=== PATIENT | female | born 1945 | race Caucasian/White ===

== ENCOUNTER 2018-09-06 20:28 | Inpatient (IN) ==
[2018-09-06] MEDS ORDERED: NS 1,000 ML IV ONE (20:46)
[2018-09-06] MEDS ORDERED: ROCEPHIN 1 GM in NS 50 ML IV ONE (20:46)
--- NOTE | 2018-09-06 21:26 | Diag Imaging Result Doc PS360 ---
CT HEAD W/O CONTRAST - 09/06/2018 INDICATION: AMS, dilated pupil COMPARISON: 01/12/2018 FINDINGS: The ventricles and sulci are normal in size and contour. No intracranial mass or hemorrhage. The skull is intact. The sinuses mastoids and middle ears are clear. IMPRESSION: Negative exam. This exam was performed using automated exposure control, adjustment of mA or kV according to patient size, and/or use of iterative reconstruction technique Electronically signed by Klever Kumar 09/06/2018 9:24 PM
--- NOTE | 2018-09-06 21:56 | Diag Imaging Result Doc PS360 ---
CHEST-PORTABLE - 09/06/2018 INDICATION: sob, tachypnea COMPARISON: 01/12/2018 FINDINGS: The lungs are normally expanded and clear. Heart size and mediastinal contours are normal. No pneumothorax or pleural effusion. IMPRESSION: Negative exam. Electronically signed by Klever Kumar 09/06/2018 9:53 PM
[2018-09-06 22:00] LABS: BASO# 0.02 X1000 (0.0-0.2); BASO% 0.1 % (0.0-0.8); HEMATOCRIT 41.3 % (37.0-47.0); HEMOGLOBIN 12.7 g/dL (12.0-16.0); IMM GRAN# 0.07 X1000 (0.0-0.04); IMM GRAN% 0.4 % (0.0-0.5); LYMPH# 1.72 X1000 (1.2-3.4); MCH 23.6 PG (27-31); MCHC 30.8 g/dL (33-37); MCV 76.9 FL (81-99); MONO# 1.52 X1000 (0.11-0.59); MONO% 7.9 % (1.7-9.3); NEUT# 15.88 X1000 (1.4-6.5); NEUT% 82.6 % (42.2-75.2); PLT 568 X1000 (130-400); RBC 5.37 XMIL (4.2-5.4); WBC 19.21 X1000 (4.8-10.8)
[2018-09-06 22:13] LABS: ALB/GLOB RATIO 1.1; ALBUMIN 3.9 g/dL (3.5-5.0); CALCIUM 8.6 mg/dL (8.8-10.2); CREATININE 1.8 mg/dL (0.5-0.9); POTASSIUM 3.9 mmol/L (3.5-5.1); TOTAL BILIRUBIN 0.46 mg/dL (0.20-1.00); TOTAL PROTEIN 7.3 g/dL (6.3-8.3)
[2018-09-06 22:19] LABS: ALLEN TEST YES; BE -2.1 mmoll (-3.0-3.0); BLOOD TYPE ARTERIAL; HCO3-(ACT) 23.3 mmoll (20.0-26.0); METHB 0.9 % (0.0-1.5); O2HB 97.8 % (95.0-99.0); PCO2(98.6) 47 mmHg (35-45); PO2(98.6) 388 mmHg (60-100); SAMPLE BLOOD; SAO2 100.1 % (95.0-100.0); THB 11.6 g/dL (11.5-17.4); pH(98.6) 7.32 (7.35-7.45)
[2018-09-06 22:20] LABS: MODALITY NRB
[2018-09-06] MEDS ORDERED: VANCOMYCIN 1 GM/NS 1 GM/250 ML IVPB IV ONE (22:25)
[2018-09-07] MEDS ORDERED: NS 500 ML ONE ×2 (00:06→00:39)
[2018-09-07] MEDS ORDERED: CARDIZEM ONE (00:06)
[2018-09-07] MEDS ORDERED: NS 500 ML IV ONE (00:11)
[2018-09-07] MEDS ORDERED: CARDIZEM IV ONE (00:11)
[2018-09-07] MEDS ORDERED: ATIVAN IV ONE ×2 (00:11→09:30)
[2018-09-07] MEDS ORDERED: ATIVAN ONE ×2 (00:13→09:40)
[2018-09-07 00:15] LABS: UR AMPHETAMINES QUAL NONE DETECTED (NONE DETECT); UR BARBITUATES QUAL NONE DETECTED (NONE DETECT); UR BENZODIAZEPIN QUAL NONE DETECTED (NONE DETECT); UR CANNABINOIDS QUAL NONE DETECTED (NONE DETECT); UR COCAINE QUAL NONE DETECTED (NONE DETECT); UR METHADONE QUAL NONE DETECTED (NONE DETECT); UR OPIATES QUAL NONE DETECTED (NONE DETECT); UR OXYCODONE QUAL NONE DETECTED (NONE DETECT); UR PCP QUAL NONE DETECTED (NONE DETECT)
[2018-09-07 00:39] LABS: URINE SOURCE CATH
[2018-09-07] MEDS: CARDIZEM 125 MG in NS 100 ML IV SCH ×3 (00:47→15:05)
[2018-09-07 01:04] LABS: BILIRUBIN URINE SMALL (NEGATIVE); BLOOD URINE TRACE (NEGATIVE); COLOR YELLOW; GLUCOSE URINE NEGATIVE (NEGATIVE); KETONE URINE TRACE mg/dL (NEGATIVE); LEUKOCYTES URINE NEGATIVE (NEGATIVE); NITRITE URINE NEGATIVE (NEGATIVE); PROTEIN URINE 70 mg/dL (NEGATIVE); SP GRAVITY URINE 1.019; TURBIDITY URINE CLEAR (CLEAR); UR EPITHELIAL CELLS <10 /HPF (<10); URINE BACTERIA NEGATIVE /HPF; URINE RBC <10 /HPF (<10); URINE WBC <10 /HPF (<10); UROBILINOGEN URINE 2 mg/dL (NORMAL)
[2018-09-07] MEDS ORDERED: QUELICIN ONE ×2 (02:10→02:19)
[2018-09-07] MEDS ORDERED: AMIDATE ONE ×2 (02:10→02:19)
[2018-09-07 02:23] LABS: INR 1.19; PROTIME 16.1 Seconds (11.0-16.0); PTT 27.6 Seconds (22.3-41.8)
[2018-09-07 02:26] LABS: D-DIMER 1.06 ug/mLFEU (0.0-0.52)
[2018-09-07] MEDS: LEVOPHED 8 MG in D5 1/2 NS 250 ML IV SCH ×2 (02:35→15:04)
[2018-09-07] MEDS: DIPRIVAN 1% 1,000 MG/100 ML BOTTLE IV SCH ×5 (02:45→22:50)
[2018-09-07] MEDS ORDERED: NS NEB INH SCH (03:00)
[2018-09-07] MEDS ORDERED: QUELICIN IV ONE ×2 (03:21→03:22)
[2018-09-07] MEDS ORDERED: AMIDATE IV ONE ×2 (03:22→03:23)
[2018-09-07 03:35] LABS: BASO# 0.03 X1000 (0.0-0.2); BASO% 0.1 % (0.0-0.8); HEMATOCRIT 41.5 % (37.0-47.0); HEMOGLOBIN 12.4 g/dL (12.0-16.0); IMM GRAN# 0.12 X1000 (0.0-0.04); IMM GRAN% 0.5 % (0.0-0.5); LYMPH% 6.7 % (20.5-51.1); MCH 23.3 PG (27-31); MCHC 29.9 g/dL (33-37); MONO# 2.41 X1000 (0.11-0.59); MONO% 10.1 % (1.7-9.3); MPV 11.7 FL (7.4-10.4); NEUT# 19.74 X1000 (1.4-6.5); NEUT% 82.6 % (42.2-75.2); PLT 546 X1000 (130-400); RBC 5.32 XMIL (4.2-5.4); RDW 18.7 % (11.5-14.5)
[2018-09-07 03:58] LABS: CREATININE 1.2 mg/dL (0.5-0.9); MAGNESIUM 2.1 mg/dL (1.5-2.7); POTASSIUM 3.5 mmol/L (3.5-5.1)
[2018-09-07] MEDS: ATROVENT NEB INH SCH ×4 (04:00→22:22)
[2018-09-07] MEDS: XOPENEX NEB INH SCH ×4 (04:00→22:22)
[2018-09-07 04:04] LABS: ALLEN TEST YES; BE -3.5 mmoll (-3.0-3.0); BLOOD TYPE ARTERIAL; HCO3-(ACT) 22.2 mmoll (20.0-26.0); METHB 1.1 % (0.0-1.5); O2(CT) 16.4 mL/dL (15.0-23.0); O2HB 97.6 % (95.0-99.0); PCO2(98.6) 50 mmHg (35-45); PO2(98.6) 332 mmHg (60-100); SAMPLE BLOOD; SRATE 14 BPM; THB 11.3 g/dL (11.5-17.4); TVOL 500 mL; pH(98.6) 7.28 (7.35-7.45)
[2018-09-07 04:06] LABS: MODALITY VENTILATOR
[2018-09-07] MEDS: PROTONIX IV SCH ×2 (04:12→16:37)
[2018-09-07 06:06] LABS: ACETAMINOPHEN < 1.2 ug/mL (10-30); SALICYLATES < 3.00 mg/dL (3-10)
[2018-09-07] MEDS ORDERED: ZOFRAN IV PRN (06:50)
[2018-09-07] MEDS ORDERED: TYLENOL PR PRN (06:50)
--- NOTE | 2018-09-07 07:16 | EKG Report ---
Test Performed on : 09/07/2018 07:07:33 AM Test Reason : New Onset A-Fib Blood Pressure : / mmHG Vent. Rate : 097 BPM Atrial Rate : 097 BPM P-R Int : 114 ms QRS Dur : 074 ms QT Int : 396 ms P-R-T Axes : 070 063 255 degrees QTc Int : 502 ms Normal sinus rhythm. T wave abnormality, consider inferior ischemia T wave abnormality, consider anterolateral ischemia Prolonged QT Abnormal ECG When compared with ECG of 07-SEP-2018 00:00, (Unconfirmed) Sinus rhythm. has replaced Atrial fibrillation. Vent. rate has decreased BY [address] no longer depressed in Inferior leads ST no longer depressed in Anterolateral leads Confirmed by Juan RAMIREZ, Zaid ([id number]) on 09/07/2018 9:01:59 AM
--- NOTE | 2018-09-07 07:29 | Diag Imaging Result Doc PS360 ---
EXAM: CHEST-PORTABLE HISTORY: tube placement TECHNIQUE: Portable chest COMPARISON: 09/06/2018 at 9:36 PM FINDINGS: Interval placement of an endotracheal tube. This is in good position 4 cm above the nydia. Interval placement of a nasogastric tube which overlies the esophagus and stomach. The lungs are well expanded and clear. IMPRESSION: Endotracheal and nasogastric tubes in good position Electronically signed by Elfego Delcid 09/07/2018 7:27 AM
[2018-09-07] MEDS ORDERED: ELIQUIS SCH (09:00)
--- NOTE | 2018-09-07 09:14 | EKG Report ---
Test Performed on : 09/06/2018 8:37:20 PM Test Reason : ams Blood Pressure : / mmHG Vent. Rate : 108 BPM Atrial Rate : 108 BPM P-R Int : 184 ms QRS Dur : 162 ms QT Int : 436 ms P-R-T Axes : 019 063 251 degrees QTc Int : 584 ms Sinus tachycardia. with frequent premature ventricular complexes. Left bundle branch block Abnormal ECG When compared with ECG of 12-JAN-2018 21:13, premature ventricular complexes. are now present Left bundle branch block is now present Unconfirmed Result
[2018-09-07] MEDS: ELIQUIS SCH ×2 (09:36→20:19)
--- NOTE | 2018-09-07 09:46 | EKG Report ---
Test Performed on : 09/07/2018 00:00:25 AM Test Reason : ED. NO EKG ORDER FOR MUSE Blood Pressure : / mmHG Vent. Rate : 214 BPM Atrial Rate : 172 BPM P-R Int : 000 ms QRS Dur : 064 ms QT Int : 196 ms P-R-T Axes : 000 051 251 degrees QTc Int : 370 ms Atrial fibrillation. with rapid ventricular response. Marked ST abnormality, possible inferior subendocardial injury Abnormal ECG When compared with ECG of 06-SEP-2018 20:37, (Unconfirmed) Atrial fibrillation. has replaced Sinus rhythm. Vent. rate has increased BY 106 BPM Left bundle branch block is no longer present Unconfirmed Result
[2018-09-07 09:57] LABS: ALLEN TEST NO; BE 0.5 mmoll (-3.0-3.0); BLOOD TYPE ARTERIAL; METHB 1.3 % (0.0-1.5); O2(CT) 12.9 mL/dL (15.0-23.0); PCO2(98.6) 41 mmHg (35-45); SAMPLE BLOOD; SAO2 84.1 % (95.0-100.0); THB 11.2 g/dL (11.5-17.4)
[2018-09-07 10:01] LABS: MODALITY VENTILATOR; PO2(98.6) 47 mmHg (60-100)
[2018-09-07 10:02] LABS: O2HB 81.7 % (95.0-99.0)
[2018-09-07] MEDS ORDERED: VANCOMYCIN IV PER PHARMACY MISC SCH (12:30)
--- NOTE | 2018-09-07 12:44 | PROVIDER DOCUMENTATION ---
This chart was entered by Lizy Gregorio Scribe, acting as scribe for Stephon Wisdom MD. HPI-General Adult <Rock CollierRaj - Last Filed: 09/07/18 02:20> - General Source: family, EMS - History of Present Illness -Gen Adult Nature of Presenting Problems: Pt is 72/F presenting to ED via EMS, per family pt was confused for the last few days, yesterday on recliner, niece went next day and found her still sitting on recliner, weak, minimally responsive "I think because she is out of xanax for 2 weeks". EMS was called. SVT on the route given adensoine 6 and 12 then cardioversion done in ambulance. PER EMS she converted from SVT to sinus rhythm. per family she is on 2 L oxygen at home and she still smoke cigarette. Location of Pain/Injury: reports: none Pain Radiation: reports: no radiation <Stephon Wisdom - Last Filed: 09/07/18 15:17> - General Chief Complaint: Altered Mental Status Stated Complaint: svt/ possible overdose Time Seen by Provider: 09/06/18 20:32 Allergies/Adverse Reactions: Patient Allergies Allergy/AdvReac Type Severity Reaction Status Date / Time No Known Allergies Allergy Verified 09/06/18 22:25 Home Medications: Home Medication List Medication Instructions Recorded Confirmed Last Taken Type Amlodipine [Norvasc] 5 mg PO BID 01/12/18 09/06/18 Unknown History Apixaban [Eliquis] 5 mg PO BID 01/12/18 09/06/18 Unknown History Escitalopram [Lexapro] 20 mg PO DAILY 01/12/18 09/06/18 Unknown History LOVAstatin [Mevacor] 20 mg PO DAILY 01/12/18 09/06/18 Unknown History Magnesium Oxide 400 mg PO BID 01/12/18 09/06/18 Unknown History Pantoprazole [Protonix] 40 mg PO DAILY@0700 01/12/18 09/06/18 Unknown History Potassium Chloride E.r. [Klor-Con] 10 meq PO DAILY 01/12/18 09/06/18 Unknown History Quetiapine [Seroquel] 50 mg PO QHS #60 tab 01/15/18 09/06/18 Unknown Rx Alprazolam 1 mg PO TID PRN 09/06/18 09/06/18 Unknown History Oxycodone HCl 30 mg PO 3-4XDAY PRN PRN 09/06/18 09/06/18 Unknown History Review of Systems - Adult - REVIEW OF SYSTEMS - ADULT ROS:: limited per condition Constitutional: reports: no symptoms reported <Stephon Wisdom - Last Filed: 09/07/18 15:17> Past History - Adult - PAST MEDICAL HISTORY-ADULT Review of Records: reports: Old Records Reviewed, Nursing Assessment Review Respiratory: reports: COPD Musculoskeletal: reports: chronic pain - PRIOR SURGERIES/PROCEDURES Surgical/Procedure History: reports: reviewed, not pertinent - IMMUNIZATION STATUS Childhood Immunizations: See Nurse Assessment Flu Vaccine: See Nurse Assessment - FAMILY HISTORY Family History: reviewed, not pertinent <Stephon Wisdom - Last Filed: 09/07/18 15:17> Physical Exam-General - PHYSICAL EXAM-ADULT Initial Vital Signs Reviewed: Yes - CONSTITUTIONAL General Appearance: severe distress - EYES Eyes: other (dialated and reactive) - HEAD, EARS, NOSE, MOUTH & THROAT HENMT: normocephalic/atraumatic, moist mucous membranes, normal ENT inspection - NECK Neck: non-tender, full range of motion, supple, normal inspection - RESPIRATORY Respiratory: respiratory distress, decreased breath sounds, accessory muscle use . negative: crackles, rales, wheezing - CARDIOVASCULAR Cardiovascular: normal peripheral pulses, no edema, tachycardia - GASTROINTESTINAL (ABDOMEN) Abdominal Exam: normal bowel sounds, non tender, soft - SKIN Integumentary: normal color, warm/dry - NEUROLOGIC Neurologic: other (Patient is confused which limit her neuro exam, able to move all extremities, DTR +3 B/L LE, increase tone B/L UE LE. [place] (+) B/L foot. GCS 11.) - PSYCHIATRIC Psych/Mental Status: disoriented x 3 <Stephon Wisdom - Last Filed: 09/07/18 15:17> Progress - PLAN OF CARE/RESULTS Progress/Plan/Lab Results: Vital Signs - 8 hr 09/06/18 20:33 09/06/18 20:37 09/06/18 20:47 Pulse Rate 113 H 108 H 111 H Respiratory Rate 22 22 20 Blood Pressure 98/71 111/82 95/67 O2 Sat by Pulse Oximetry 97 100 100 09/06/18 20:52 09/06/18 20:55 09/06/18 20:57 Pulse Rate 118 H 108 H 110 H Respiratory Rate 28 H 22 24 Blood Pressure 80/73 146/75 165/80 O2 Sat by Pulse Oximetry 97 100 100 09/06/18 21:19 09/06/18 21:22 04 21:26 Pulse Rate 107 H 105 H 105 H Respiratory Rate 24 22 22 Blood Pressure 155/72 138/98 140/86 O2 Sat by Pulse Oximetry 99 100 100 09/06/18 21:31 09/06/18 21:37 09/06/18 21:42 Pulse Rate 105 H 106 H 103 H Respiratory Rate 24 24 24 Blood Pressure 162/76 168/81 157/71 O2 Sat by Pulse Oximetry 100 96 97 09/06/18 21:47 09/06/18 21:53 09/06/18 21:57 Pulse Rate 102 H 103 H 101 H Respiratory Rate 22 24 24 Blood Pressure 168/80 173/85 156/79 O2 Sat by Pulse Oximetry 100 100 100 09/06/18 22:01 09/06/18 22:07 09/06/18 22:12 Pulse Rate 100 H 100 H 103 H Respiratory Rate 22 36 H 36 H Blood Pressure 159/79 157/71 160/78 O2 Sat by Pulse Oximetry 100 100 100 09/06/18 22:16 09/06/18 22:21 09/06/18 22:26 Pulse Rate 112 H 103 H 104 H Respiratory Rate 28 H 35 H 37 H Blood Pressure 165/97 144/87 169/81 O2 Sat by Pulse Oximetry 100 100 100 09/06/18 22:31 09/06/18 22:36 09/06/18 22:41 Pulse Rate 102 H 102 H 100 H Respiratory Rate 36 H 42 H 35 H Blood Pressure 158/85 145/81 164/85 O2 Sat by Pulse Oximetry 100 100 100 09/06/18 22:46 09/06/18 22:51 09/06/18 23:00 Pulse Rate 99 H 102 H 101 H Respiratory Rate 34 H 31 H 37 H Blood Pressure 157/82 165/86 O2 Sat by Pulse Oximetry 100 100 100 09/06/18 23:01 09/06/18 23:06 09/06/18 23:11 Pulse Rate 101 H 98 H 104 H Respiratory Rate 41 H 35 H 23 Blood Pressure 166/89 170/86 152/86 O2 Sat by Pulse Oximetry 100 100 99 09/06/18 23:16 09/06/18 23:20 09/06/18 23:22 Pulse Rate 106 H 108 H Respiratory Rate 33 H 35 H Blood Pressure 179/94 189/82 O2 Sat by Pulse Oximetry 99 100 100 09/06/18 23:27 09/06/18 23:31 09/06/18 23:37 Pulse Rate 106 H 112 H 113 H Respiratory Rate 36 H 33 H 35 H Blood Pressure 179/87 178/94 170/76 O2 Sat by Pulse Oximetry 100 100 98 09/06/18 23:41 09/06/18 23:46 09/06/18 23:51 Pulse Rate 109 H 109 H 114 H Respiratory Rate 33 H 34 H 34 H Blood Pressure 164/78 176/84 172/92 O2 Sat by Pulse Oximetry 98 99 99 09/06/18 23:57 09/07/18 00:00 09/07/18 00:01 Pulse Rate 225 H 108 H 221 H Respiratory Rate 34 H 29 H 43 H Blood Pressure 168/110 113/92 O2 Sat by Pulse Oximetry 96 98 97 09/07/18 00:05 09/07/18 00:07 09/07/18 00:12 Pulse Rate 211 H 198 H 191 H Respiratory Rate 48 H 33 H 43 H Blood Pressure 162/100 155/105 167/101 O2 Sat by Pulse Oximetry 97 96 95 09/07/18 00:17 09/07/18 00:21 09/07/18 00:26 Pulse Rate 190 H 187 H 185 H Respiratory Rate 33 H 30 H 30 H Blood Pressure 126/73 121/83 147/116 O2 Sat by Pulse Oximetry 96 95 95 Laboratory Results - last 24 hr 09/06/18 09/06/18 09/06/18 20:40 20:40 21:20 WBC 19.21 H RBC 5.37 Hgb 12.7 Hct 41.3 MCV 76.9 L MCH 23.6 L MCHC 30.8 L RDW Std Deviation 19.0 H Plt Count 568 H MPV 12.0 H Immature Gran % (Auto) 0.4 Neut % (Auto) 82.6 H Lymph % (Auto) 9.0 L [place] % (Auto) 7.9 Eos % (Auto) 0.0 Baso % (Auto) 0.1 Immature Gran # (Auto) 0.07 H Neut # (Auto) 15.88 H Lymph # (Auto) 1.72 [place] # (Auto) 1.52 H Eos # (Auto) 0.00 Baso # (Auto) 0.02 Specimen Type Sample Site pH pCO2 pO2 HCO3 Base Excess Oxyhemoglobin ABG O2 Sat (Calculated) ABG O2 Saturation ABG Carboxyhemoglobin ABG Methemoglobin Mark Test A-a O2 Difference Total Hemoglobin Lactate Liter Flow Blood Gas Modality FiO2 % Sodium Potassium Chloride Carbon Dioxide Anion Gap BUN Creatinine Estimated GFR/1.73 m2 BUN/Creatinine Ratio Glucose POC Glucose Calculated Osmolality Calcium Total Bilirubin AST ALT Alkaline Phosphatase Troponin T Total Protein Albumin Globulin Albumin/Globulin Ratio Plasma Lactate Urine Source CATH Urine Color YELLOW Urine Turbidity CLEAR Urine pH 6.0 Ur Specific [place] 1.019 Urine Protein 70 A Ur Glucose (Stick) NEGATIVE Ur Ketones (Stick) TRACE A Urine Blood TRACE A Urine Nitrite NEGATIVE Urine Bilirubin SMALL A Urobilinogen Dipstick 2 A Urine Leukocytes NEGATIVE Urine WBC (Auto) <10 Urine RBC (Auto) <10 U Epithel Cells (Auto) <10 Urine Bacteria (Auto) NEGATIVE Urine Opiates Screen NONE DETECTED Ur Oxycodone Screen NONE DETECTED Ur Methadone, Qual NONE DETECTED Ur Barbiturates Screen NONE DETECTED Ur Phencyclidine Scrn NONE DETECTED Ur Amphetamines Screen NONE DETECTED U Benzodiazepines Scrn NONE DETECTED Urine Cocaine Screen NONE DETECTED U Cannabinoids Screen NONE DETECTED 09/06/18 09/06/18 09/06/18 21:20 21:20 21:38 WBC RBC Hgb Hct MCV MCH MCHC RDW Std Deviation Plt Count MPV Immature Gran % (Auto) Neut % (Auto) Lymph % (Auto) [place] % (Auto) Eos % (Auto) Baso % (Auto) Immature Gran # (Auto) Neut # (Auto) Lymph # (Auto) [place] # (Auto) Eos # (Auto) Baso # (Auto) Specimen Type ARTERIAL Sample Site R RADIAL pH 7.32 L pCO2 47 H pO2 388 H HCO3 23.3 Base Excess -2.1 Oxyhemoglobin 97.8 ABG O2 Sat (Calculated) 17.0 ABG O2 Saturation 100.1 H ABG Carboxyhemoglobin 1.40 ABG Methemoglobin 0.9 Mark Test YES A-a O2 Difference 266.0 Total Hemoglobin 11.6 Lactate 1.40 Liter Flow 15.0 Blood Gas Modality NRB FiO2 % 100.0 Sodium 149 H Potassium 3.9 Chloride 110 H Carbon Dioxide 26 Anion Gap 13 BUN 66 H Creatinine 1.8 H Estimated GFR/1.73 m2 28 BUN/Creatinine Ratio 37 Glucose 169 H POC Glucose Calculated Osmolality 319 Calcium 8.6 L Total Bilirubin 0.46 AST 20 ALT 11 Alkaline Phosphatase 117 H Troponin T 0.081 Total Protein 7.3 Albumin 3.9 Globulin 3.4 Albumin/Globulin Ratio 1.1 Plasma Lactate Urine Source Urine Color Urine Turbidity Urine pH Ur Specific [place] Urine Protein Ur Glucose (Stick) Ur Ketones (Stick) Urine Blood Urine Nitrite Urine Bilirubin Urobilinogen Dipstick Urine Leukocytes Urine WBC (Auto) Urine RBC (Auto) U Epithel Cells (Auto) Urine Bacteria (Auto) Urine Opiates Screen Ur Oxycodone Screen Ur Methadone, Qual Ur Barbiturates Screen Ur Phencyclidine Scrn Ur Amphetamines Screen U Benzodiazepines Scrn Urine Cocaine Screen U Cannabinoids Screen 09/06/18 09/06/18 21:57 23:19 WBC RBC Hgb Hct MCV MCH MCHC RDW Std Deviation Plt Count MPV Immature Gran % (Auto) Neut % (Auto) Lymph % (Auto) [place] % (Auto) Eos % (Auto) Baso % (Auto) Immature Gran # (Auto) Neut # (Auto) Lymph # (Auto) [place] # (Auto) Eos # (Auto) Baso # (Auto) Specimen Type Sample Site pH pCO2 pO2 HCO3 Base Excess Oxyhemoglobin ABG O2 Sat (Calculated) ABG O2 Saturation ABG Carboxyhemoglobin ABG Methemoglobin Mark Test A-a O2 Difference Total Hemoglobin Lactate Liter Flow Blood Gas Modality FiO2 % Sodium Potassium Chloride Carbon Dioxide Anion Gap BUN Creatinine Estimated GFR/1.73 m2 BUN/Creatinine Ratio Glucose POC Glucose 150 H Calculated Osmolality Calcium Total Bilirubin AST ALT Alkaline Phosphatase Troponin T Total Protein Albumin Globulin Albumin/Globulin Ratio Plasma Lactate 1.6 Urine Source Urine Color Urine Turbidity Urine pH Ur Specific [place] Urine Protein Ur Glucose (Stick) Ur Ketones (Stick) Urine Blood Urine Nitrite Urine Bilirubin Urobilinogen Dipstick Urine Leukocytes Urine WBC (Auto) Urine RBC (Auto) U Epithel Cells (Auto) Urine Bacteria (Auto) Urine Opiates Screen Ur Oxycodone Screen Ur Methadone, Qual Ur Barbiturates Screen Ur Phencyclidine Scrn Ur Amphetamines Screen U Benzodiazepines Scrn Urine Cocaine Screen U Cannabinoids Screen Orders Category Date Time Status CT HEAD W/O CONTRAST [CT] Stat Exams 09/06/18 20:46 Completed CTA [CT ANGIOGRM PULMONARY ARTERIES] [CT] Stat Exams 09/06/18 21:57 Ordered cxr [CHEST-PORTABLE] [RAD] Stat Exams 09/06/18 21:30 Completed ABG [RESP] Routine Lab 09/06/18 21:38 Completed BLOOD CULTURE [BLDCUL] Stat Lab 09/06/18 21:20 Results BLOOD CULTURE [BLDCUL] Stat Lab 09/06/18 22:24 Received CBC WITH ELECTRONIC DIFF [HEME] Stat Lab 09/06/18 21:20 Completed CMP [COMPREHENSIVE METABOLIC PANEL] [CHEM] Stat Lab 09/06/18 21:20 Completed LACTATE, PLASMA [CHEM] Stat Lab 09/06/18 23:19 Completed TROPONIN T Stat Lab 09/06/18 21:20 Completed UA NIMS W/REFLEX CULT [URINALYSIS] Stat Lab 09/07/18 00:30 Completed URINE DRUG SCREEN Stat Lab 09/06/18 20:40 Completed 0.9% Sodium Chloride Inj [Ns] 1,000 ml Med 09/06/18 20:46 Discontinued IV 999 mls/hr 0.9% Sodium Chloride Inj [Ns] 100 ml Med 09/07/18 00:15 Active Diltiazem [Cardizem] 125 mg IV As Directed mls/hr 0.9% Sodium Chloride Inj [Ns] 500 ml Med 09/07/18 00:06 Discontinued .ROUTE As directed 0.9% Sodium Chloride Inj [Ns] 500 ml Med 09/07/18 00:39 Discontinued .ROUTE As directed 0.9% Sodium Chloride Inj [Ns] 500 ml Med 09/07/18 00:11 Discontinued IV 999 mls/hr CefTRIAXONE [Rocephin] 1 gm Med 09/06/18 20:46 Discontinued 0.9% Sodium Chloride Inj [Ns] 50 ml IV NOW Dextrose 5%-0.45% NaCl Inj [D5 1/2 Ns] 250 ml Med 09/07/18 00:45 Active Norepinephrine [Levophed] 8 mg IV As Directed mls/hr Diltiazem [Cardizem] Med 09/07/18 00:11 Discontinued 10 mg IV NOW ONE Diltiazem [Cardizem] Med 09/07/18 00:06 Discontinued 25 mg .ROUTE .STK-MED ONE Lorazepam [Ativan] Med 09/07/18 00:11 Discontinued 0.5 mg IV NOW ONE Lorazepam [Ativan] Med 09/07/18 00:13 Discontinued 2 mg .ROUTE .STK-MED ONE Vancomycin 1 gm/Ns Med 09/06/18 22:25 Discontinued 1 gm in 250 ml IV NOW BIPAP Stat Oth 09/06/18 22:59 Active EKG [EKG] Stat Ther 09/06/18 20:47 Ordered Transfer/Admit Order [TRANSFER] Routine Transfer 09/07/18 01:30 Ordered Result Diagrams: 09/06/18 21:20 09/06/18 21:20 <Rock Collier - Last Filed: 09/07/18 02:20> - PLAN OF CARE/RESULTS Progress/Plan/Lab Results: Vital Signs - 8 hr 09/06/18 20:33 09/06/18 20:37 09/06/18 20:47 Pulse Rate 113 H 108 H 111 H Respiratory Rate 22 22 20 Blood Pressure 98/71 111/82 95/67 O2 Sat by Pulse Oximetry 97 100 100 09/06/18 20:52 09/06/18 20:55 09/06/18 20:57 Pulse Rate 118 H 108 H 110 H Respiratory Rate 28 H 22 24 Blood Pressure 80/73 146/75 165/80 O2 Sat by Pulse Oximetry 97 100 100 09/06/18 21:19 09/06/18 21:22 09/06/18 21:26 Pulse Rate 107 H 105 H 105 H Respiratory Rate 24 22 22 Blood Pressure 155/72 138/98 140/86 O2 Sat by Pulse Oximetry 99 100 100 09/06/18 21:31 09/06/18 21:37 09/06/18 21:42 Pulse Rate 105 H 106 H 103 H Respiratory Rate 24 24 24 Blood Pressure 162/76 168/81 157/71 O2 Sat by Pulse Oximetry 100 96 97 09/06/18 21:47 09/06/18 21:53 09/06/18 21:57 Pulse Rate 102 H 103 H 101 H Respiratory Rate 22 24 24 Blood Pressure 168/80 173/85 156/79 O2 Sat by Pulse Oximetry 100 100 100 09/06/18 22:01 Pulse Rate 100 H Respiratory Rate 22 Blood Pressure 159/79 O2 Sat by Pulse Oximetry 100 Laboratory Results - last 24 hr 09/06/18 09/06/18 09/06/18 21:20 21:20 21:20 WBC 19.21 H RBC 5.37 Hgb 12.7 Hct 41.3 MCV 76.9 L MCH 23.6 L MCHC 30.8 L RDW Std Deviation 19.0 H Plt Count 568 H MPV 12.0 H Immature Gran % (Auto) 0.4 Neut % (Auto) 82.6 H Lymph % (Auto) 9.0 L [place] % (Auto) 7.9 Eos % (Auto) 0.0 Baso % (Auto) 0.1 Immature Gran # (Auto) 0.07 H Neut # (Auto) 15.88 H Lymph # (Auto) 1.72 [place] # (Auto) 1.52 H Eos # (Auto) 0.00 Baso # (Auto) 0.02 Specimen Type Sample Site pH pCO2 pO2 HCO3 Base Excess Oxyhemoglobin ABG O2 Sat (Calculated) ABG O2 Saturation ABG Carboxyhemoglobin ABG Methemoglobin Mark Test A-a O2 Difference Total Hemoglobin Lactate Liter Flow Blood Gas Modality FiO2 % Sodium 149 H Potassium 3.9 Chloride 110 H Carbon Dioxide 26 Anion Gap 13 BUN 66 H Creatinine 1.8 H Estimated GFR/1.73 m2 28 BUN/Creatinine Ratio 37 Glucose 169 H POC Glucose Calculated Osmolality 319 Calcium 8.6 L Total Bilirubin 0.46 AST 20 ALT 11 Alkaline Phosphatase 117 H Troponin T 0.081 Total Protein 7.3 Albumin 3.9 Globulin 3.4 Albumin/Globulin Ratio 1.1 09/06/18 09/06/18 21:38 21:57 WBC RBC Hgb Hct MCV MCH MCHC RDW Std Deviation Plt Count MPV Immature Gran % (Auto) Neut % (Auto) Lymph % (Auto) [place] % (Auto) Eos % (Auto) Baso % (Auto) Immature Gran # (Auto) Neut # (Auto) Lymph # (Auto) [place] # (Auto) Eos # (Auto) Baso # (Auto) Specimen Type ARTERIAL Sample Site R RADIAL pH 7.32 L pCO2 47 H pO2 388 H HCO3 23.3 Base Excess -2.1 Oxyhemoglobin 97.8 ABG O2 Sat (Calculated) 17.0 ABG O2 Saturation 100.1 H ABG Carboxyhemoglobin 1.40 ABG Methemoglobin 0.9 Mark Test YES A-a O2 Difference 266.0 Total Hemoglobin 11.6 Lactate 1.40 Liter Flow 15.0 Blood Gas Modality NRB FiO2 % 100.0 Sodium Potassium Chloride Carbon Dioxide Anion Gap BUN Creatinine Estimated GFR/1.73 m2 BUN/Creatinine Ratio Glucose POC Glucose 150 H Calculated Osmolality Calcium Total Bilirubin AST ALT Alkaline Phosphatase Troponin T Total Protein Albumin Globulin Albumin/Globulin Ratio Orders Category Date Time Status CT HEAD W/O CONTRAST [CT] Stat Exams 09/06/18 20:46 Completed CTA [CT ANGIOGRM PULMONARY ARTERIES] [CT] Stat Exams 09/06/18 21:57 Ordered cxr [CHEST-PORTABLE] [RAD] Stat Exams 09/06/18 21:30 Completed ABG [RESP] Routine Lab 09/06/18 21:38 Completed BLOOD CULTURE [BLDCUL] Stat Lab 09/06/18 21:20 Results BLOOD CULTURE [BLDCUL] Stat Lab 09/06/18 22:24 Ordered CBC WITH ELECTRONIC DIFF [HEME] Stat Lab 09/06/18 21:20 Completed CMP [COMPREHENSIVE METABOLIC PANEL] [CHEM] Stat Lab 09/06/18 21:20 Completed LACTATE, PLASMA [CHEM] Stat Lab 09/06/18 22:23 Ordered TROPONIN T Stat Lab 09/06/18 21:20 Completed 0.9% Sodium Chloride Inj [Ns] 1,000 ml Med 09/06/18 20:46 Discontinued IV 999 mls/hr CefTRIAXONE [Rocephin] 1 gm Med 09/06/18 20:46 Discontinued 0.9% Sodium Chloride Inj [Ns] 50 ml IV NOW Vancomycin 1 gm/Ns Med 09/06/18 22:25 Active 1 gm in 250 ml IV NOW EKG [EKG] Stat Ther 09/06/18 20:47 Ordered Patient care, assessment and plan discussed with the attending physician Dr. Collier and he agree with the plan as documented. respiratory distress, start Bi pap and Monitor. Patient with worsening respiratory failure. AMS likely multifactorial (respirato ry failure, sepsis and other factors) need further investigation to rule out CARDIAC CATHETERIZATION TECHNICIAN problems (CT head unremarkable). Patient meet criteria for sepsis, started on Fluid and AB. 12:[address] Collier with patient condition. Result Diagrams: 09/07/18 02:49 09/07/18 13:21 - REASSESSMENT Reassessment #1 Time Reassessed: 21:10 Status: unchanged Reassessment #2 Time Reassessed: 22:20 Status: unchanged (Still tachypneic, Bipap ordered.) Reassessment #3 Time Reassessed: 23:31 Status: unchanged - CONSULTS/PCP/HOSPITALIST Notification #1 *Consult/PCP/Hospitalist*: Dr. Torey Pagan Time Discussed: 23:02 Consult Disposition: Admit (Patient condition discussed with Dr. Pagan, Accepted.) <Stephon Wisdom - Last Filed: 09/07/18 15:17> Procedures - INTUBATION Time of Intubation: 02:21 Intubation Method: nasotracheal Equipment: ETT Tube Size (cm): 7.0 Pretreated with 100% Oxygen?: Yes Breath Sounds after Intubation: equal ETT Primary Tube Confirmation: Capnometry CO2 Change, Direct Visualization, Chest Rise and Fall, Tube placement verified on XRAY Intubation Complications: no complications Vent Settings: See Respiratory Therapy Notes <Rock Collier - Last Filed: 09/07/18 02:20> Departure <Rock Collier - Last Filed: 09/07/18 02:20> - Departure Date of Disposition Decision: 09/06/18 Time of Disposition Decision: 23:02 Certified Medical Emergency: Emergent - Critical Care Note This patient required my direct & personal management of CC.: Yes Total Time (mins): 37 Critical Care Statement: This patient required my direct personal management to treat or rule out processes, the absence of which, could potentiallly result in sudden, clinically significant life or limb threatening deterioration. <Stephon Wisdom - Last Filed: 09/07/18 15:17> - Departure DIAGNOSIS: Respiratory distress, CHENCHO (acute kidney injury), Hypernatremia, SVT (supraventricular tachycardia) Altered mental status Qualifiers: Altered mental status type: disorientation Qualified Code(s): R41.0 - Disorientation, unspecified Sepsis Qualifiers: Sepsis type: sepsis due to unspecified organism Qualified Code(s): A41.9 - Sepsis, unspecified organism Acute respiratory failure Qualifiers: Respiratory failure complication: hypoxia and hypercapnia Qualified Code(s): J96.01 - Acute respiratory failure with hypoxia Disposition: ADMITTED INPATIENT 09 Condition: Serious Attestation - Physician/ RADHA Attestation Patient care was provided by Advanced Practice Provider:: No The physician spent face to face time with patient:: Yes Advanced Practice Provider documentation review:: Supervising physician onsite and consulted in the evaluation and care of this patient. The physician did have a face to face encounter with the patient. <Stephon Wisdom - Last Filed: 09/07/18 15:17> This chart was documented by the indicated scribe, (Lizy Gregorio, [place]) and accurately reflects the services I performed and decisions made by me, Stephon Campbell MD, as attested by the provider's signature.
--- NOTE | 2018-09-07 13:04 | PROGRESS NOTE ---
DATE: 09/07/2018 SUBJECTIVE: I saw Ms. Parkinson today in the ER. She is currently intubated and sedated on propofol so she is not able to give any interim history. The two nieces were at the bedside at the time of the encounter. One of them states that Ms. Parkinson lives next door to her and that she checks on Ms. Parkinson almost every single day. Ms. Parkinson is not able to give any interim history now but according to the niece, Ms. Parkinson has been progressively acting weird in the last 3 or 4 days, not very coherent and has been remarkably more sleepy. According to the niece, yesterday, she saw Ms. Parkinson early in the morning. Ms. Parkinson was in her recliner, was minimally responsive. She went to hoahaoism and then came back and checked on Ms. Parkinson late in the evening and saw Ms. Parkinson to be in the same position in the recliner but this time, Ms. Parkinson was slumped over and she was foaming in her mouth and in her nose, so she called the EMS. When the EMS arrived, they tried multiple times, according to her, to revive, to wake her up but she was not responding. At some point, according to the niece, Ms. Parkinson was shocked. I do not have any records from even the ER notes or the EMS notes to know exactly what was the reason why Ms. Parkinson was shocked. At any point, she was brought into the emergency room. According to the niece, at some point, Ms. Parkinson was able to recognize her, was able to recognize the , and was saying she was in a hospital. However, sometime early this morning, she became intubated. Per the nursing notes, at 0200, it appears that she dropped her O2 saturation to the mid 80s and her respiratory rate jumped up to 190. A decision to intubate her was made and this was successfully done. This morning, Ms. Parkinson continues to be intubated. OBJECTIVE: Current Vital Signs: Blood pressure is 115/66, pulse is 80, respirations are 18, temperature is 100.2 degrees. General Examination: Ms. Parkinson is a 72-year-old, female. She is in bed. She is currently intubated. She is sedated on propofol. She seems to be interacting somehow. HEENT: Mucosa is pink and moist. Anicteric. Acyanotic. Neck: Supple. Chest: Air entry is bilaterally reduced. Some transmitted sounds from the ventilator. Cardiovascular: Regular rate and rhythm. Abdomen: Soft. Bowel sounds present. Extremities: No pedal edema. DEAL ARCHITECT: The patient is sedated on propofol but she was able to open her eyes upon command. She was able to show me two fingers upon command. She will raise up her both hands and she will move both extremities upon stimulation. Babinski both downward going. Current Laboratory Data: WBC is 23.90, hemoglobin is 12.4, platelet count of 546,000. ABG shows pH 7.40, pCO2 of 41, PaO2 is down to 47. This was done on an FiO2 of 45. Currently, patient is on 70%. Chemistry is also reviewed. A chest x-ray which was done on admission was negative. ASSESSMENT: 1. History of being unresponsive. Etiology is unclear. I understand the patient was supposed to be on benzodiazepines and pain medications for a very long time. However, it appears that she has not refilled her medication for some time and the family thinks that the patient could be withdrawing from her medication. 2. Acute hypoxemic respiratory failure. The patient is currently intubated. 3. History of advanced chronic obstructive pulmonary disease. We will continue with nebulization. Unsure if the patient has been in any exacerbation. I think we will treat her empirically for this. 4. Sepsis. The patient's WBC is remarkably elevated. Of course, that can be stress induced. She, this morning, spiked a temperature of 100.2 and she was tachycardic with atrial fibrillation, rapid ventricular response on admission. I think it is reasonable to empirically cover her with intravenous antibiotics until we know the culture reports and know that there is truly no infection. The patient could have also aspirated during the whole altered mentation or even during the intubation process. 5. Acute kidney injury. We will continue gentle hydration. Creatinine is down to 1.2 from 1.8. 6. Clinical volume depletion. We will continue gentle hydration. 7. Atrial fibrillation with rapid ventricular response on presentation. The patient is currently on a Cardizem drip. PLAN: In general, Ms. Parkinson continues to be intubated, extremely critical. We are going to start her on IV cefepime with renally dosed vancomycin. Start her on steroids for possible COPD exacerbation, bronchodilation therapy. There is a consult for both cardiology and pulmonary medicine to see the patient. Critical time spent is 1 hour. cc: Enzo Florian MD
[2018-09-07] MEDS: D5 1/2 NS + KCL 20 MEQ 1,000 ML IV SCH (13:06)
[2018-09-07] MEDS: MAXIPIME 1 GM in NS 50 ML IV SCH (13:06)
--- NOTE | 2018-09-07 13:31 | ECHO REPORT ---
ORDER DATE: 09/07/2018 ECHOCARDIOGRAPHIC MEASUREMENTS: 1. Interventricular septum 0.7. 2. Left ventricular posterior wall 0.7. 3. Diastolic diameter 3.9. 4. Left atrium 3.1. 5. Aorta 3.1. SUMMARY OF 2-DIMENSIONAL IMAGIN. Technically suboptimal study. Most of the images were in the subcostal views. 2. Mitral valve was normal. Tricuspid valve was normal. 3. Aortic valve leaflets not well visualized. Pulmonic valve not visualized. 4. Normal left ventricular cavity size. Estimated ejection fraction of 65%. There is mild mitral regurgitation. Mild tricuspid regurgitation. Peak velocity across the tricuspid valve was 2.2 m/sec. Pulmonary artery systolic pressure of 28 mmHg. Peak velocity across the aortic valve less than 2 m/sec. By Doppler studies, there is no aortic stenosis or regurgitation. 5. There is no pericardial effusion or obvious intracardiac mass or thrombus seen. cc: Matt Mayorga MD
[2018-09-07 13:54] LABS: CALCIUM 8.5 mg/dL (8.8-10.2); MAGNESIUM 2.1 mg/dL (1.5-2.7); POTASSIUM 2.7 mmol/L (3.5-5.1)
--- NOTE | 2018-09-07 13:59 | PULMONOLOGY CONSULTATION ---
DATE: 09/07/2018 REASON FOR CONSULTATION: Respiratory failure. HISTORY OF PRESENT ILLNESS: Ms. Parkinson is a 72-year-old white female with COPD, history of chronic anxiety, and chronic pain syndrome, who by report has been out of her chronic pain medicines and benzodiazepines for over a week. The patient was found unresponsive/confused by family members, and EMS was called. The patient was reportedly in SVT at 190 and was cardioverted in the ambulance. The patient underwent CT scan of the head, which revealed no acute changes. She had an episode in the emergency room where her heart rate went to 190, and she had progressive oxygen desaturation and was subsequently intubated. While on mechanical ventilation, she is converted back to sinus rhythm. She is attempting to communicate. PAST MEDICAL HISTORY PROBLEM LIST: 1. Prior admission to this hospital in December 2017, where she underwent brief CPR for altered mental status, but she regained consciousness at home. It is not completely clear whether this was an infectious event or a sedative narcotic event. 2. Chronic obstructive pulmonary disease with ongoing tobacco use. 3. Chronic hypoxemic respiratory failure. 4. Gastroesophageal reflux. 5. History of pulmonary embolism with chronic Eliquis use. 6. History of irregular heart rate. 7. Gastroesophageal reflux. PAST SURGICAL HISTORY: 1. Multiple left wrist surgeries. 2. Partial hysterectomy. 3. Status post appendectomy. 4. Status post cholecystectomy. SOCIAL HISTORY: Obtained from previous admission: Ongoing tobacco use. Occasional alcohol use. She previously was living with her , but I believe that he may have . FAMILY HISTORY: Positive for congestive heart failure, diabetes mellitus, arthritis. She does not know her biological father. REVIEW OF SYSTEMS: Cannot be obtained. PHYSICAL EXAMINATION: Reveals a frail white female who has lost 10 pounds at her last admission in December. Blood pressure 115/62, heart rate 74, respiratory rate 19, oxygen saturation 100%.HEENT: Pupils are equal and reactive. Oropharynx appears clear, but endotracheal tube in position. Neck is supple. Chest reveals prolonged expiratory phase. Cardiac: S1, S2. Abdomen is scaphoid and soft. Extremities are without edema. DIAGNOSTIC STUDIES: Arterial blood gas on mechanical ventilation: PH 7.28, pCO2 of 50, PO2 of 332 on 100% on a rate of 14. Arterial blood gas on a spontaneous breathing trial: PH 7.40, pCO2 of 41, PO2 of 47. White blood count 23.9K, hemoglobin 12.4, platelet 546,000. Chest x-ray reveals hyperinflation without evidence of acute disease. IMPRESSION: A 72-year-old with long history of tobacco use and chronic obstructive pulmonary disease, who presents with tachyarrhythmia, acute hypoxemic respiratory failure, low-grade fevers, leukocytosis, acute hypoxemic and acute hypercapnic respiratory failure. The patient has failed a spontaneous breathing trial. RECOMMENDATIONS: 1. Continue ventilatory support. 2. Agree with current antibiotic regimen. 3. Continue sedation. 4. Continue bronchodilators and steroids. 5. Routine gastric acid suppression. 6. Initiate DVT prophylaxis tomorrow. PROGNOSIS: Guarded. cc: Ej Amato MD
[2018-09-07] MEDS: SOLU-MEDROL IV SCH ×2 (14:00→20:30)
[2018-09-07] MEDS: CARDIZEM NG SCH ×2 (16:36→20:30)
[2018-09-07] MEDS: SODIUM CHLORIDE 0.9% INJ SCH (16:37)
[2018-09-07] MEDS: ATIVAN IV PRN ×2 (16:43→20:36)
[2018-09-07] MEDS ORDERED: CALMOSEPTINE OINTMENT TOP PRN (16:53)
--- NOTE | 2018-09-07 18:11 | CONSULTATION ---
DATE OF CONSULTATION: 09/07/2018 IMPRESSION: 1. Respiratory failure, hypoxemic. 2. Severe chronic obstructive pulmonary disease requiring chronic oxygen. 3. Paroxysmal atrial fibrillation with rapid ventricular rate. 4. Chronic ongoing cigarette use. 5. History of previous pulmonary embolism and chronic Eliquis use. RECOMMENDATIONS: 1. Continue anticoagulation. 2. Initiate rate control measures with oral Cardizem to facilitate weaning of intravenous Cardizem. 3. Further recommendations depending on patient's clinical course. HISTORY: This 72-year-old white female with past history of severe COPD requiring chronic home oxygen, anxiety/depression, chronic pain syndrome requiring chronic narcotics. Previous pulmonary embolus. Found unresponsive/confused by family members. This occurred yesterday. Family indicates that she did not attend an Easter gathering with family. They went to her trailer where she lived and found her slumped over in a chair and drooling. EMS was summoned. They found her to be in a rapid narrow complex tachycardia at 190 beats per minute and performed cardioversion. Upon arrival to the emergency room she had further narrow complex tachycardia at 190 beats per minute. She manifest progressive oxygen desaturation and was subsequently intubated. She has since converted back to sinus rhythm. She is sedated somewhat but arouses to physical stimulus. PAST MEDICAL HISTORY: 1. Severe COPD requiring chronic home oxygen. 2. Previous pulmonary embolism. Patient on chronic Eliquis. 3. History of previous atrial fibrillation. Patient is on chronic Eliquis. 4. Gastroesophageal reflux disease. 5. Anxiety/depression. 6. Chronic ongoing cigarette use. 7. Previous hospitalization here December 2017 for altered mental status possibly related to narcotics. PAST SURGICAL HISTORY: Includes multiple left wrist surgeries, partial hysterectomy, appendectomy cholecystectomy. ALLERGIES: She has no known drug allergies. SOCIAL HISTORY: She continues to smoke cigarettes at least 1 pack of cigarettes daily, according to family. She occasionally drinks alcohol. Her has several months ago and she is grieving. Her family indicates that she is depressed and quite tearful with this. FAMILY HISTORY: Negative for premature coronary disease. She does not know her biological father. REVIEW OF SYSTEMS: Unobtainable given patient being intubated and sedated. PHYSICAL EXAMINATION: General: This is an older white female. Intubated and sedated on ventilator. Vital signs: Blood pressure 138/58, heart rate 62 and regular, the monitor is showing sinus rhythm. HEENT: Extraocular movements intact. Mucous membranes are moist. Neck: Supple, jugular venous distention cannot be appreciated. Chest: Auscultation of chest reveals coarse breath sounds bilaterally. Cardiac: Reveals a regular rate and rhythm without appreciable murmur or gallop. Abdomen: Soft. Bowel sounds audible. Extremities: Without edema. Most recent 12 lead EKG demonstrates sinus rhythm and diffuse T-wave abnormality, consider ischemia. Q-T interval borderline prolonged. PERTINENT DATA: A 12-lead electrocardiogram was obtained shortly after midnight last night. Reviewed and demonstrates atrial fibrillation with rapid ventricular response. Diffuse ST. ST abnormality probably related to rate. Heart rate is 214 beats per minute. LABORATORY DATA: Includes a white blood cell count 23.9, hematocrit 41.5, hemoglobin 12.4, platelet count 546,000. Sodium 147, potassium 2.7. Chloride 114. Carbon dioxide 24, BUN 47, creatinine 1.0, glucose 132. Initial troponin 0.081. Followup troponin 0.056. CPK 73, TSH 1.37. Magnesium 2.1. Urine drug screen negative. cc: Barrett Santos MD
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
[2018-09-08] MEDS: HUMULIN R SUBQ SCH ×6 (00:43→20:27)
[2018-09-08] MEDS: MAXIPIME 1 GM in NS 50 ML IV SCH ×3 (00:43→23:29)
[2018-09-08] MEDS: ATIVAN IV PRN ×4 (00:48→20:23)
[2018-09-08] MEDS: D5 1/2 NS + KCL 20 MEQ 1,000 ML IV SCH (02:02)
[2018-09-08] MEDS: DIPRIVAN 1% 1,000 MG/100 ML BOTTLE IV SCH ×2 (02:05→08:37)
[2018-09-08] MEDS: CARDIZEM NG SCH ×3 (02:05→14:40)
[2018-09-08] MEDS: XOPENEX NEB INH SCH ×5 (04:04→21:22)
[2018-09-08] MEDS: ATROVENT NEB INH SCH ×5 (04:04→21:23)
[2018-09-08 04:46] LABS: ALLEN TEST YES; BE 0.2 mmoll (-3.0-3.0); BLOOD TYPE ARTERIAL; HCO3-(ACT) 25.1 mmoll (20.0-26.0); METHB 1.2 % (0.0-1.5); O2(CT) 15.6 mL/dL (15.0-23.0); O2HB 97.4 % (95.0-99.0); PCO2(98.6) 30 mmHg (35-45); PO2(98.6) 197 mmHg (60-100); SAMPLE BLOOD; SAO2 99.4 % (95.0-100.0); SRATE 16 BPM; THB 11.1 g/dL (11.5-17.4); TVOL 500 mL; pH(98.6) 7.49 (7.35-7.45)
[2018-09-08] MEDS: PROTONIX IV SCH ×2 (04:46→15:49)
[2018-09-08] MEDS: SOLU-MEDROL IV SCH ×3 (04:46→20:23)
[2018-09-08 04:47] LABS: MODALITY VENTILATOR
[2018-09-08 06:06] LABS: PHOSPHORUS 2.5 mg/dL (2.7-4.5)
[2018-09-08 06:11] LABS: AGAP 4; ALB/GLOB RATIO 0.9; ALBUMIN 2.6 g/dL (3.5-5.0); ALKALINE PHOSPHATASE 78 U/L (32-104); BUN 31 mg/dL (8-22); CALCIUM 8.1 mg/dL (8.8-10.2); CHLORIDE 112 mmol/L (98-107); COSMO 294; CREATININE 0.7 mg/dL (0.5-0.9); ESTIMATED GFR > 60; GLUCOSE 173 mg/dL (70-104); GOT 14 U/L (10-30); GPT 6 U/L (10-36); POTASSIUM 3.3 mmol/L (3.5-5.1); SODIUM 142 mmol/L (136-145); TCO2 26 mmol/L (25-35); TOTAL BILIRUBIN 0.33 mg/dL (0.20-1.00); TOTAL PROTEIN 5.4 g/dL (6.3-8.3)
[2018-09-08] MEDS ORDERED: HUMULIN R SUBQ SCH (07:00)
--- NOTE | 2018-09-08 07:10 | Diag Imaging Result Doc PS360 ---
EXAM: CHEST-PORTABLE 09/08/2018 HISTORY: respiratory failure TECHNIQUE: AP portable at 0524 COMMENT: There is an endotracheal tube with its tip slightly below the thoracic inlet. There is an NG tube with its tip below the diaphragm. The inspiration is less optimal than on 09/07/2018, otherwise are has been no significant change. IMPRESSION: Stable chest. Electronically signed by Brian Mas 09/08/2018 7:08 AM
--- NOTE | 2018-09-08 07:38 | EKG Report ---
Test Performed on : 09/08/2018 06:56:40 AM Test Reason : afib Blood Pressure : / mmHG Vent. Rate : 057 BPM Atrial Rate : 057 BPM P-R Int : 134 ms QRS Dur : 078 ms QT Int : 518 ms P-R-T Axes : 270 073 019 degrees QTc Int : 504 ms Unusual P axis and short [place], probable junctional rhythm. Nonspecific T wave abnormality Abnormal ECG When compared with ECG of 07-SEP-2018 07:07, Junctional rhythm. has replaced Sinus rhythm. Vent. rate has decreased BY 40 BPM Nonspecific T wave abnormality has replaced inverted T waves in Inferior leads Nonspecific T wave abnormality has replaced inverted T waves in Anterolateral leads Confirmed by Juan RAMIREZ, Zaid ([id number]) on 09/08/2018 9:07:17 AM
[2018-09-08 08:00] LABS: HEMATOCRIT 32.8 % (37.0-47.0); HEMOGLOBIN 9.9 g/dL (12.0-16.0); MCH 23.3 PG (27-31); MCHC 30.2 g/dL (33-37); MCV 77.2 FL (81-99); MPV 11.6 FL (7.4-10.4); RBC 4.25 XMIL (4.2-5.4); RDW 18.5 % (11.5-14.5); WBC 9.65 X1000 (4.8-10.8)
[2018-09-08] MEDS: ELIQUIS SCH ×2 (08:38→20:23)
[2018-09-08] MEDS ORDERED: VANCOMYCIN 1 GM/NS 1 GM/250 ML IVPB IV SCH (10:00)
[2018-09-08 10:02] LABS: ALLEN TEST YES; BE -0.3 mmoll (-3.0-3.0); BLOOD TYPE ARTERIAL; HCO3-(ACT) 24.7 mmoll (20.0-26.0); METHB 0.9 % (0.0-1.5); MODALITY VENTILATOR; O2(CT) 14.8 mL/dL (15.0-23.0); O2HB 97.7 % (95.0-99.0); PCO2(98.6) 37 mmHg (35-45); PO2(98.6) 247 mmHg (60-100); SAMPLE BLOOD; SAO2 99.7 % (95.0-100.0); THB 10.3 g/dL (11.5-17.4); pH(98.6) 7.42 (7.35-7.45)
--- NOTE | 2018-09-08 10:09 | PULMONOLOGY PROGRESS NOTE ---
DATE: 09/08/2018 SUBJECTIVE: The patient's sedation has been placed on hold. She is arousable. She is following commands. OBJECTIVE: Vital Signs: Maximum temperature in the last 24 hours 100.2 degrees, current temperature 97.5 degrees, blood pressure 123/53, heart rate 60, respiratory rate 16, oxygen saturation 100%. HEENT: Pupils are equal and reactive. Oropharynx appears clear with limited evaluation due to endotracheal tube. Neck is supple. Chest reveals prolonged expiratory phase with minimal wheezing. Cardiac: S1, S2. Abdomen is scaphoid and soft. Extremities are without cyanosis or edema. DIAGNOSTIC STUDIES: White blood count has normalized at 9.65, hemoglobin 9.9, platelet count 298,000. The patient's numbers are microcytic. Sodium 142, potassium 3.3, chloride 112, bicarbonate 26, BUN 31, creatinine 0.7. Arterial blood gas reveals a pH 7.49, pCO2 of 30, PO2 of 197. Chest x-ray reveals hyperinflation, but no evidence of acute disease. Sputum culture is pending. Blood cultures are pending. IMPRESSION: A 72-year-old with: 1. Acute hypoxemic respiratory failure. 2. Acute hypercapnic respiratory failure. 3. Fevers. 4. Leukocytosis. 5. Episodes of atrial fibrillation with rapid ventricular response. PLAN: 1. Continue antibiotics, steroids, and bronchodilators. 2. Initiate spontaneous breathing trial. 3. Rate control as outlined by Cardiology. 4. Smoking cessation discussions. cc: Ej Amato MD
[2018-09-08] MEDS: SODIUM CHLORIDE 0.9% INJ SCH (15:49)
--- NOTE | 2018-09-08 17:53 | PROGRESS NOTE ---
DATE: 09/08/2018 SUBJECTIVE: The patient resting in bed. She is agitated. She has recently been extubated. OBJECTIVE: Vital Signs: Temperature 98.1 degrees, pulse 87, respiratory rate 21, blood pressure is 144/52, oxygen saturation is 100%. HEENT: She is atraumatic and normocephalic. Cardiovascular System: S1, S2. Respiratory system has evidence of good air entry bilaterally. Abdomen is soft, nontender. No masses felt. Extremities: No evidence of edema. Central Nervous System: No obvious focal deficit. LABORATORY DATA: WBCs 9.65, hematocrit 32.8, with a platelet count of 298,000. ABG 7.42/37/247, oxygen saturation 99.7%. Sodium is 142, potassium 3.3, chloride is 112, bicarbonate 26, BUN is 31, creatinine 0.7. ASSESSMENT AND PLAN: 1. Acute respiratory failure. The patient has recently been extubated. Maintain patient on supplemental oxygen. Pulmonary team following. 2. Chronic obstructive pulmonary disease. Maintain patient on nebulized bronchodilators. 3. Acute delirium. The patient noted to have been on benzodiazepines as well as pain medications for a prolonged period of time, and she may possibly withdrawing. We will use benzodiazepines on a p.r.n. basis. 4. Sepsis. Maintain patient on intravenous fluids, as well as antibiotics. Follow up on cultures. 5. Acute kidney injury. Follow up on renal function while on intravenous hydration. 6. Atrial fibrillation with rapid ventricular rate. Continue rate-controlling agent. cc: Lee Weeks MD
--- NOTE | 2018-09-08 18:35 | PROGRESS NOTE ---
DATE: 09/08/2018 CARDIOLOGY FOLLOWUP NOTE: SUBJECTIVE: Patient has been extubated and is on oxygen per mask. She is still somewhat drowsy. She had some recurrent atrial fibrillation with rapid ventricular rate and spontaneously converted back to sinus rhythm. OBJECTIVE: Vital Signs: Blood pressure 111/55, heart rate 65 and regular, with ECG monitor currently showing sinus rhythm. Oxygen saturation 98%. Neck: There is no significant jugular venous distention. Chest: Clear to auscultation anteriorly. Cardiac: Reveals a regular rate and rhythm without appreciable murmur or gallop. There is no evidence of peripheral edema. LABORATORY DATA: Includes a white blood cell count of 9.65, hematocrit 32.8, hemoglobin 9.9, platelet count 298,000. Sodium 142, potassium 3.3, chloride 112, BUN 31, creatinine 0.7, carbon dioxide 26, albumin 2.6. IMPRESSION: 1. Hypoxemic respiratory failure. 2. Paroxysmal atrial fibrillation with rapid ventricular rate. 3. Severe chronic obstructive pulmonary disease. RECOMMENDATIONS: 1. Continue to adjust diltiazem to achieve rate control without promoting excessive bradycardia. 2. Continue Eliquis at current dose for now. cc: Barrett Santos MD
[2018-09-08] MEDS ORDERED: CARDIZEM IV ONE (18:42)
[2018-09-08] MEDS ORDERED: CARDIZEM ONE (18:47)
[2018-09-08] MEDS: CARDIZEM 125/NS 125 MG/125 ML IVPB IV SCH (18:52)
[2018-09-08] MEDS ORDERED: LANOXIN IV SCH (21:00)
[2018-09-09] MEDS: HUMULIN R SUBQ SCH ×6 (00:13→20:11)
[2018-09-09] MEDS: ATIVAN IV PRN ×5 (00:53→20:41)
[2018-09-09] MEDS: XOPENEX NEB INH SCH ×3 (03:27→16:00)
[2018-09-09] MEDS: ATROVENT NEB INH SCH ×3 (03:27→16:00)
[2018-09-09] MEDS: PROTONIX IV SCH ×2 (04:23→17:25)
[2018-09-09] MEDS: SOLU-MEDROL IV SCH ×3 (04:23→20:41)
[2018-09-09 04:40] LABS: ALLEN TEST YES; BLOOD TYPE ARTERIAL; HCO3-(ACT) 27.3 mmoll (20.0-26.0); PCO2(98.6) 32 mmHg (35-45); PO2(98.6) 98 mmHg (60-100); SAMPLE BLOOD; pH(98.6) 7.51 (7.35-7.45)
[2018-09-09 04:43] LABS: MODALITY CANNULA
[2018-09-09 05:19] LABS: HEMATOCRIT 29.6 % (37.0-47.0); HEMOGLOBIN 9.2 g/dL (12.0-16.0); MCH 23.9 PG (27-31); MCHC 31.1 g/dL (33-37); MCV 76.9 FL (81-99); MPV 12.6 FL (7.4-10.4); RBC 3.85 XMIL (4.2-5.4); RDW 18.2 % (11.5-14.5); WBC 7.85 X1000 (4.8-10.8)
[2018-09-09 05:36] LABS: AGAP 11; ALBUMIN 2.8 g/dL (3.5-5.0); ALKALINE PHOSPHATASE 68 U/L (32-104); BUN 20 mg/dL (8-22); CALCIUM 8.2 mg/dL (8.8-10.2); CHLORIDE 105 mmol/L (98-107); COSMO 281; CREATININE 0.5 mg/dL (0.5-0.9); ESTIMATED GFR > 60; GLUCOSE 148 mg/dL (70-104); GOT 9 U/L (10-30); GPT 5 U/L (10-36); POTASSIUM 2.7 mmol/L (3.5-5.1); SODIUM 138 mmol/L (136-145); TCO2 22 mmol/L (25-35); TOTAL BILIRUBIN 0.35 mg/dL (0.20-1.00); TOTAL PROTEIN 5.6 g/dL (6.3-8.3)
--- NOTE | 2018-09-09 07:17 | Diag Imaging Result Doc PS360 ---
EXAM: CHEST-PORTABLE HISTORY: respiratory failure TECHNIQUE: Portable chest single view COMPARISON: 09/08/2018 FINDINGS: The endotracheal tube has been removed and the nasogastric tube has been removed. The lungs remain well expanded. No cardiomegaly. Mild vascular distention. No pleural effusions identified. IMPRESSION: Mild pulmonary edema. Electronically signed by Elfego Delcid 09/09/2018 7:15 AM
[2018-09-09] MEDS ORDERED: POTASSIUM CHLORIDE 20% LIQUID PO ONE ×2 (08:17→16:00)
--- NOTE | 2018-09-09 08:41 | EKG Report ---
Test Performed on : 09/08/2018 5:27:53 PM Test Reason : AFIB Blood Pressure : / mmHG Vent. Rate : 158 BPM Atrial Rate : 105 BPM P-R Int : 000 ms QRS Dur : 086 ms QT Int : 290 ms P-R-T Axes : 000 058 261 degrees QTc Int : 470 ms Atrial fibrillation. with rapid ventricular response. with premature ventricular or aberrantly conduc tanesha complexes. Marked ST abnormality, possible inferior subendocardial injury Marked ST abnormality, possible anterior subendocardial injury Abnormal ECG When compared with ECG of 08-SEP-2018 06:56, Significant changes have occurred Confirmed by Juan RAMIREZ, Zaid ([id number]) on 09/09/2018 8:52:05 AM
[2018-09-09] MEDS: ELIQUIS SCH ×2 (09:28→21:08)
[2018-09-09] MEDS ORDERED: POTASSIUM PHOSPHATE 40 MEQ in NS 250 ML IV ONE (09:30)
[2018-09-09] MEDS ORDERED: POTASSIUM CHLORIDE 20 MEQ/SWI 20 MEQ/100 ML IVPB IV SCH (11:00)
[2018-09-09] MEDS: VANCOMYCIN 1 GM/NS 1 GM/250 ML IVPB IV SCH (11:00)
--- NOTE | 2018-09-09 12:56 | PROGRESS NOTE ---
DATE: 09/09/2018 SUBJECTIVE: The patient is resting in bed. She is much less agitated today. She seemed to be more cheerful. OBJECTIVE: Vital signs: Vital signs are as follows: Temperature 97.8 degrees, pulse 59, respirations 20, blood pressure is 147/62, oxygen saturation is 98%. HEENT: Atraumatic, normocephalic. Cardiovascular system: S1, S2. Respiratory system: Has evidence of good air entry bilaterally. Abdomen: Soft, nontender. No masses felt. Extremities: No evidence of edema. Central nervous system: No obvious focal deficits noted. LABS: Labs are as follows: WBC is 7.85 hematocrit is 29.6, with a platelet count of 131. ABG is 7.51/32/98. Chemistry: Sodium 138, potassium 2.7 pulse 105, bicarbonate 22. BUN is 20, creatinine 0.5. ASSESSMENT AND PLAN: 1. Acute respiratory failure. The patient has now been extubated. Maintain patient on supplemental oxygen. 2. Chronic obstructive pulmonary disease. Continue nebulized bronchodilators. 3. Acute delirium, improved. Will use antipsychotic on an as-needed basis. 4. Sepsis. Maintain patient on intravenous fluids, as well as antibiotics. Follow up on culture reports. 5. Acute kidney injury. Resolved. 6. Atrial fibrillation with rapid ventricular rate. Continue rate-controlling agents. Cardiology following. 7. Gastrointestinal prophylaxis. Proton pump inhibitor. 8. Deep vein thrombosis prophylaxis. Apixaban. 9. Disposition: Patient can be transferred to a step-down unit. cc: Lee Weeks MD
[2018-09-09] MEDS: CARDIZEM 125/NS 125 MG/125 ML IVPB IV SCH (13:03)
[2018-09-09] MEDS: MAXIPIME 1 GM in NS 50 ML IV SCH ×2 (13:03→23:50)
[2018-09-09] MEDS ORDERED: ATIVAN IV ONE (21:06)
--- NOTE | 2018-09-09 21:13 | PULMONOLOGY PROGRESS NOTE ---
DATE: 09/09/2018 SUBJECTIVE: The patient is awake, alert, and conversant. She is without increased work of breathing. She is without specific complaints. OBJECTIVE: Vital Signs: The patient has been afebrile for the last 24 hours. Blood pressure 127/69, heart rate 91, respiratory rate 27, oxygen saturation 95% on 2 L per nasal cannula. HEENT: Pupils are equal and reactive. Oropharynx is clear. Neck: Supple. Chest: Reveals prolonged expiratory phase without wheezing or rhonchi. Cardiac exam: S1, S2. Abdomen: Soft. Extremities: Without edema. LABORATORIES: White blood count 7.85, hemoglobin 9.2, platelet count 312,000. Sodium 138, potassium 2.7, chloride 105, bicarbonate 22, BUN 20, creatinine 0.5, glucose 148. Arterial blood gas: pH 7.51, pCO2 of 32, pO2 of 98 on 2 L per nasal cannula. IMAGING STUDIES: Chest x-ray reveals mild vascular prominence. IMPRESSION: A 72-year-old with: 1. Acute hypoxemic respiratory failure. 2. Acute hypercapnic respiratory failure. 3. Fevers, leukocytosis. PLAN: 1. The patient is doing well, and diet can be advanced. 2. Wean O2 as tolerated. 3. Smoking cessation will be discussed at each visit. 4. Atrial fibrillation management per Cardiology. cc: Ej Amato MD
[2018-09-09] MEDS: CARDIZEM PO SCH (21:50)
[2018-09-10] MEDS: ATIVAN IV PRN ×3 (01:15→20:33)
[2018-09-10] MEDS: ATROVENT NEB INH SCH ×4 (02:17→16:07)
[2018-09-10] MEDS: XOPENEX NEB INH SCH ×4 (02:17→16:07)
[2018-09-10] MEDS: HUMULIN R SUBQ SCH ×6 (04:17→22:31)
[2018-09-10] MEDS: SOLU-MEDROL IV SCH ×3 (04:22→20:33)
[2018-09-10] MEDS: PROTONIX IV SCH ×2 (04:22→15:36)
[2018-09-10] MEDS: SODIUM CHLORIDE 0.9% INJ SCH (04:22)
[2018-09-10] MEDS: CARDIZEM PO SCH ×3 (06:00→20:34)
[2018-09-10 08:37] LABS: HEMATOCRIT 34.2 % (37.0-47.0); HEMOGLOBIN 10.6 g/dL (12.0-16.0); MCH 23.9 PG (27-31); MCV 77.2 FL (81-99); MPV 12.6 FL (7.4-10.4); RBC 4.43 XMIL (4.2-5.4); RDW 18.8 % (11.5-14.5); WBC 9.23 X1000 (4.8-10.8)
[2018-09-10] MEDS: ELIQUIS SCH ×2 (08:50→20:34)
[2018-09-10 09:07] LABS: AGAP 8; ALBUMIN 3.1 g/dL (3.5-5.0); ALKALINE PHOSPHATASE 84 U/L (32-104); BUN 21 mg/dL (8-22); CHLORIDE 105 mmol/L (98-107); COSMO 275; CREATININE 0.6 mg/dL (0.5-0.9); ESTIMATED GFR > 60; GLUCOSE 140 mg/dL (70-104); GOT 10 U/L (10-30); GPT 6 U/L (10-36); SODIUM 135 mmol/L (136-145); TCO2 22 mmol/L (25-35); TOTAL BILIRUBIN 0.31 mg/dL (0.20-1.00); TOTAL PROTEIN 6.2 g/dL (6.3-8.3)
[2018-09-10] MEDS: VANCOMYCIN 1 GM/NS 1 GM/250 ML IVPB IV SCH (11:26)
[2018-09-10] MEDS: MAXIPIME 1 GM in NS 50 ML IV SCH (12:50)
--- NOTE | 2018-09-10 14:21 | PULMONOLOGY PROGRESS NOTE ---
DATE: 09/10/2018 SUBJECTIVE: The patient is awake, alert and conversant. She is asking if she can go home. The patient was switched to oral Cardizem last evening. Her morning dose was held. OBJECTIVE: Vital Signs: Heart rate 78, BP 107/65, oxygen saturation 97% on 2 L per nasal cannula. HEENT: Pupils are equal and reactive. Oropharynx is clear. Neck: Supple. Chest: Reveals prolonged expiratory phase without wheezing or rhonchi. Cardiac: S1, S2. Abdomen: Abdomen is soft. Extremities: Without edema. LABORATORIES: White blood count 9.2, hemoglobin 10.6, platelet count 369,000. Sodium 135, potassium 4.0, chloride 105, bicarbonate 22, BUN 21, creatinine 0.6, glucose 140. IMPRESSION: A 72-year-old with: 1. Acute hypoxemic respiratory failure. 2. Acute hypercapnic respiratory failure. 3. Tachyarrhythmias. Now in sinus rhythm. 4. Fevers and leukocytosis. These have resolved. RECOMMENDATIONS: 1. Continue to wean O2 per protocol. 2. Smoking cessation strongly recommended. 3. Atrial fibrillation management per Cardiology. 4. The patient can be transferred to a medical floor bed given her debility. cc: Ej Amato MD
--- NOTE | 2018-09-10 16:12 | PROGRESS NOTE ---
DATE: 09/10/2018 SUBJECTIVE: The patient resting in bed. She is asking to be discharged home today. OBJECTIVE: Vital Signs: Temperature is 97.5 degrees, pulse 67, respirations 19, blood pressure 117/80, and oxygen saturation is 95%. HEENT: Atraumatic, normocephalic. Cardiovascular: S1, S2. Respiratory: There is evidence of good air entry bilaterally. Abdomen: Soft, nontender. No masses felt. Extremities: No evidence of edema. Central nervous system: No obvious focal deficits noted. LABORATORY DATA: WBC is 9.23, hematocrit is 34.2, and platelet count of [*].Sodium is 135, potassium 4.0, chloride 105, bicarb 22, BUN is 21, and creatinine 0.6. ASSESSMENT AND PLAN: 1. Acute respiratory failure. Maintain patient on supplemental oxygen. 2. COPD. Continue nebulized bronchodilators as needed. 3. Acute delirium. Improved. Use antipsychotic on an as needed basis. 4. Sepsis. Maintain patient on intravenous fluids and antibiotics. Follow up on cultures. 5. Acute kidney injury. Resolved. 6. Atrial fibrillation. Continue rate controlling agent. Cardiology following. 7. Deep vein thrombosis prophylaxis apixaban. 8. Gastrointestinal prophylaxis. Proton pump inhibitor. 9. Disposition. The patient can be transferred to a medical floor bed. I plan to possibly discharge the patient home tomorrow with home health services. In any case, she will be reassessed to see if she is ready for discharge tomorrow. cc: Lee Weeks MD
[2018-09-11] MEDS: MAXIPIME 1 GM in NS 50 ML IV SCH ×3 (00:14→23:40)
[2018-09-11] MEDS: HUMULIN R SUBQ SCH ×6 (00:28→23:25)
[2018-09-11] MEDS: ATROVENT NEB INH SCH ×4 (02:43→15:40)
[2018-09-11] MEDS: XOPENEX NEB INH SCH ×4 (02:43→15:40)
[2018-09-11] MEDS: SODIUM CHLORIDE 0.9% INJ SCH (04:46)
[2018-09-11] MEDS: CARDIZEM PO SCH ×3 (04:46→23:26)
[2018-09-11] MEDS: PROTONIX IV SCH ×2 (04:46→17:22)
[2018-09-11] MEDS: SOLU-MEDROL IV SCH ×3 (04:46→23:26)
[2018-09-11] MEDS: ATIVAN IV PRN ×2 (04:46→14:28)
[2018-09-11 05:07] LABS: ALLEN TEST YES; BE 4.7 mmoll (-3.0-3.0); BLOOD TYPE ARTERIAL; HCO3-(ACT) 28.5 mmoll (20.0-26.0); O2(CT) 15.1 mL/dL (15.0-23.0); O2HB 94.8 % (95.0-99.0); PCO2(98.6) 42 mmHg (35-45); PO2(98.6) 72 mmHg (60-100); SAMPLE BLOOD; SAO2 98.2 % (95.0-100.0); THB 11.3 g/dL (11.5-17.4); pH(98.6) 7.45 (7.35-7.45)
[2018-09-11 05:08] LABS: MODALITY ROOM AIR
[2018-09-11 05:11] LABS: HEMOGLOBIN 9.6 g/dL (12.0-16.0); MCH 23.8 PG (27-31); MCV 76.9 FL (81-99); MPV 12.8 FL (7.4-10.4); RBC 4.03 XMIL (4.2-5.4); RDW 17.9 % (11.5-14.5); WBC 6.54 X1000 (4.8-10.8)
[2018-09-11 05:48] LABS: AGAP 11; ALB/GLOB RATIO 1.1; ALBUMIN 2.8 g/dL (3.5-5.0); ALKALINE PHOSPHATASE 75 U/L (32-104); BUN 20 mg/dL (8-22); CALCIUM 8.4 mg/dL (8.8-10.2); CHLORIDE 103 mmol/L (98-107); COSMO 281; CREATININE 0.5 mg/dL (0.5-0.9); ESTIMATED GFR > 60; GLUCOSE 139 mg/dL (70-104); GOT 9 U/L (10-30); GPT 7 U/L (10-36); POTASSIUM 3.3 mmol/L (3.5-5.1); SODIUM 138 mmol/L (136-145); TCO2 24 mmol/L (25-35); TOTAL BILIRUBIN 0.25 mg/dL (0.20-1.00); TOTAL PROTEIN 5.4 g/dL (6.3-8.3)
[2018-09-11] MEDS: ELIQUIS SCH ×2 (08:06→23:27)
--- NOTE | 2018-09-11 09:41 | Diag Imaging Result Doc PS360 ---
CHEST-2 VIEWS - 09/11/2018 INDICATION: abnormal exam COMPARISON: 09/09/2018 FINDINGS: There is a trace right pleural effusion. No focal infiltrates or significant edema. Heart size is normal. IMPRESSION: Trace right pleural effusion. Electronically signed by Klever Kumar 09/11/2018 9:38 AM
[2018-09-11 12:37] LABS: INR 1.32; PROTIME 17.4 Seconds (11.0-16.0)
[2018-09-11] MEDS ORDERED: NS 250 ML ONE (12:46)
[2018-09-11] MEDS: VANCOMYCIN 1 GM/NS 1 GM/250 ML IVPB IV SCH (14:06)
--- NOTE | 2018-09-11 17:38 | PROGRESS NOTE ---
DATE: 09/11/2018 SUBJECTIVE: The patient is resting in bed. She is expected to be discharged home. OBJECTIVE: Vital signs: Temperature is 99 degrees, pulse 94, respiratory rate 16, blood pressure is 148/69, oxygen saturation is 94. HEENT: She is atraumatic, normocephalic. Cardiovascular: S1, S2. Respiratory system: Has evidence of good air entry bilaterally. Abdomen: Soft, nontender. No masses felt. Extremities: No evidence of edema. Central nervous system: No obvious focal deficits noted. LABORATORY DATA: WBC 6.54, hematocrit 31 with a platelet count of [*]. ABG 7.45/42/72/98.2%. Chemistry: Sodium 138, potassium 3.3, chloride 103, bicarb 24, BUN is 20, creatinine 0.5. X-ray of the chest shows trace right pleural effusion. ASSESSMENT AND PLAN: 1. Acute respiratory failure. The patient doing well post extubation. Continue supplemental oxygen. 2. Chronic obstructive pulmonary disease. Maintain the patient on nebulized bronchodilators as needed. 3. Acute delirium, resolved. Use antipsychotic for agitation. 4. Sepsis. Maintain the patient on intravenous fluids as well as antibiotics. 5. Acute kidney injury. Resolved. 6. Atrial fibrillation. Continue rate controlling agent as well as apixaban. 7. Deep vein thrombosis prophylaxis. The patient is on apixaban. 8. Gastrointestinal prophylaxis. Proton pump inhibitor. 9. Disposition. The patient can be transferred to a medical floor bed. I believe soon after that, the patient can be discharged home. cc: Lee Weeks MD
[2018-09-11] MEDS ORDERED: DESYREL PO PRN (19:46)
--- NOTE | 2018-09-11 20:01 | PROGRESS NOTE ---
DATE: 09/11/2018 SUBJECTIVE: The patient continues without dyspnea on room air. She desires to go home. There has been no chest pain. OBJECTIVE: Blood pressure 152/65, heart rate 93 and regular with ECG monitor showing sinus rhythm. Oxygen saturation 97% on room air. There is no significant jugular distention.Chest: Auscultation of the chest reveals diminished breath sounds diffusely. Cardiac: Reveals a regular rate and rhythm without appreciable murmur or gallop. There is no evidence of peripheral edema. LABORATORY DATA: Includes a white blood cell count 6.54, hematocrit 31.0, hemoglobin 9.6, platelet count 348,000. Sodium 138, potassium 3.3, chloride 103, carbon dioxide 24, BUN 20, creatinine 0.5, glucose 139. IMPRESSION: 1. Recent hypoxemic respiratory failure. Patient clinically improved. 2. Paroxysmal atrial fibrillation with rapid ventricular rate. 3. Severe chronic obstructive pulmonary disease. 4. Depression. She is also grieving over the recent loss of her . RECOMMENDATIONS: 1. Consolidate diltiazem to once daily dosing with long-acting preparation. 2. Appropriate dose for Eliquis is 5 mg p.o. b.i.d. We will make adjustment. 3. Resume Lexapro 20 mg p.o. daily which she was on at the time of admission. 4. She has had some insomnia. Will try low-dose trazodone. 5. Reasonable for patient to be discharged to home soon from a cardiovascular standpoint. cc: Barrett Santos MD
[2018-09-12] MEDS: ATROVENT NEB INH SCH ×3 (00:42→10:00)
[2018-09-12] MEDS: XOPENEX NEB INH SCH ×3 (00:42→10:00)
[2018-09-12] MEDS: HUMULIN R SUBQ SCH ×3 (05:03→15:58)
[2018-09-12] MEDS: PROTONIX IV SCH (05:05)
[2018-09-12] MEDS: SODIUM CHLORIDE 0.9% INJ SCH (05:05)
[2018-09-12] MEDS: VANCOMYCIN 1 GM/NS 1 GM/250 ML IVPB IV SCH (05:05)
[2018-09-12] MEDS: SOLU-MEDROL IV SCH ×2 (05:05→12:30)
--- NOTE | 2018-09-12 07:35 | Diag Imaging Result Doc PS360 ---
EXAM: CHEST-1 VIEW INDICATION: SOB TECHNIQUE: One view COMPARISON: 09/11/2018 FINDINGS: There has been interval placement of a left PICC line. The tip projects over the lower SVC in the expected position. The trace right pleural effusion appears to have grossly resolved. No new consolidation is identified. Cardiac silhouette is stable. IMPRESSION: Interval placement of left PICC line and gross resolution of the trace right effusion by plain radiograph. Electronically signed by Immanuel Marino 09/12/2018 7:33 AM
[2018-09-12 08:44] LABS: HEMATOCRIT 32.1 % (37.0-47.0); HEMOGLOBIN 9.9 g/dL (12.0-16.0); MCH 23.1 PG (27-31); MCHC 30.8 g/dL (33-37); MCV 74.8 FL (81-99); PLT 358 X1000 (130-400); RBC 4.29 XMIL (4.2-5.4); RDW 18.2 % (11.5-14.5); WBC 8.87 X1000 (4.8-10.8)
[2018-09-12 08:51] LABS: AGAP 7; ALB/GLOB RATIO 1.1; ALBUMIN 2.8 g/dL (3.5-5.0); ALKALINE PHOSPHATASE 87 U/L (32-104); BUN 23 mg/dL (8-22); CALCIUM 8.2 mg/dL (8.8-10.2); CHLORIDE 100 mmol/L (98-107); COSMO 279; CREATININE 0.5 mg/dL (0.5-0.9); ESTIMATED GFR > 60; GLUCOSE 155 mg/dL (70-104); GOT 8 U/L (10-30); GPT 5 U/L (10-36); POTASSIUM 3.2 mmol/L (3.5-5.1); SODIUM 136 mmol/L (136-145); TCO2 29 mmol/L (25-35); TOTAL BILIRUBIN 0.31 mg/dL (0.20-1.00); TOTAL PROTEIN 5.3 g/dL (6.3-8.3)
[2018-09-12] MEDS: ELIQUIS SCH (08:59)
[2018-09-12] MEDS ORDERED: CARDIZEM CD PO SCH (09:00)
[2018-09-12] MEDS ORDERED: LEXAPRO PO SCH (09:00)
[2018-09-12] MEDS: MAXIPIME 1 GM in NS 50 ML IV SCH (12:30)
[2018-09-12 12:33] VITALS: BP 156/68
--- NOTE | 2018-09-12 13:47 | DISCHARGE SUMMARY ---
ADMISSION DATE: 09/07/2018 DISCHARGE DATE: 09/12/2018 DISPOSITION: Home. FOLLOWUP: 1. Dr. Amato. 2. Dr. Santos. 3. Patient's PCP. CONSULTATION DURING THIS ADMISSION: 1. Pulmonary Medicine was consulted. Patient was seen by Dr. Amato. 2. Cardiology was consulted. Patient was seen by Dr. Santos. INVASIVE PROCEDURES DONE DURING THIS ADMISSION: None. IMAGING STUDIES: Significant. A CT scan of the head on presentation was unremarkable. Initial chest x-ray was also unremarkable except for expanded lung clay. Subsequently multiple chest x- rays were done when patient was intubated. Echocardiogram did show an ejection fraction of 65%. No wall abnormality was found. ADMISSION DIAGNOSES: 1. Acute hypoxemic respiratory failure. 2. Unresponsiveness. 3. Sepsis. 4. Chronic obstructive pulmonary disease. DIAGNOSES AT THE TIME OF DISCHARGE: 1. Acute hypoxemic respiratory failure. Patient was intubated, was successfully extubated and is doing remarkably well. 2. Chronic obstructive pulmonary disease exacerbation. 3. Sepsis. 4. Paroxysmal atrial fibrillation with rapid ventricular response on presentation, improved. 5. Acute kidney injury, resolved. 6. Altered mental status, presumably medication induced, resolved. DISCHARGE MEDICATIONS: 1. Eliquis 5 mg b.i.d. 2. Lexapro 10 mg daily SR 20 mg daily. 3. Magnesium oxide 400 mg b.i.d. 4. Pantoprazole 40 mg daily. 5. Quetiapine 50 mg at bedtime. 6. Alprazolam 1 mg 3 times per day. 7. Prednisone 20 mg daily. 8. Levaquin 50 mg daily. 9. Spiriva 1 puff daily. 10. Cardizem 180 p.o. daily. 11. Combivent inhaler p.r.n. PRESENTING COMPLAINT: Altered mental status. HISTORY OF PRESENTING COMPLAINT: Ms. Parkinson is a 72-year-old female with history of hypertension and COPD, uses oxygen every now and then, comes to the emergency department because of unresponsiveness. The patient was found unresponsive at home. EMS was called. Upon presenting to the house, 2 mg of Narcan was given. Patient did not really respond very well, was found to be in fast rhythm on the EKG. Adenosine was also given. The patient was brought to the emergency department where she was subsequently intubated after failed BiPAP therapy. The patient was subsequently transferred to the ICU and admitted for further medical care. HOSPITAL COURSE: Ms. Parkinson was in the ICU initially, was intubated for about a day and a half, was successfully extubated on the and did well, was subsequently transferred to the floor where she continued to improve. She was also started on adequate hydration, IV antibiotics, bronchodilation therapy, and was seen by both Cardiology and Pulmonary Medicine. The patient initially was also found to be in atrial fibrillation with RVR, was started on Cardizem drip initially and this was transitioned to oral. She seems to have tolerated this very well. Her rate got better control and actually became also sinus. This morning, Ms. Parkinson refers to be doing a lot better. She is completely asymptomatic. She is going to be therefore discharged in stable condition to follow up with Pulmonary Medicine, as well as Cardiology. Ms. Parkinson is also advised to follow up with her primary care doctor since she does not seem to have one. There was concern that Ms. Parkinson has been on some psychotropic medications and we did go over it and did go over the risks of those medications including longstanding opioids, as well as sedatives. Today Ms Parkinson did voice understanding of further discharge instructions. Time spent for discharge is 37 minutes. cc: MD Barrett Sinclair MD James E. Boyle, MD
== END 2018-09-12 15:59 | disposition home health service (06) | DRG 871 ==
LOC: SUPCPDRO → ED 20:28 → EDIPHOLD 09-07 01:39 → SUATTDRO 09-07 01:39 → ICU 09-07 12:18 → 3N 09-11 18:06
PROVIDERS: ATTEND Internal Medicine
CPT/HCPCS: 36569; 51702; 70450; 71010; 71020; 71045; 71046; 80048; 80053; 80101; 80196; 80202; 80301; 80307; 80324; 80329; 80345; 80346; 80353; 80358; 80361; 80365; 81001; 82003; 82550; 82805; 82948; 83605; 83735; 83880; 83992; 84100; 84132; 84443; 84484; 85025; 85027; 85379; 85610; 85730; 87040; 87070; 87205; 89220; 93005; 93010; 93306; 94002; 94003; 94640; 94761; 96365; 96366; 96367; 96368; 96375; 96376; 97110; 97116; 97162; 97530; 99285; 99291; A9270; C9113; G0431; G0434; G0479; G0480; G6038; G6039; J0330; J0692; J0696; J2060; J2920; J3370; J3480; J7030; J7040; J7050; S0164; XXXXX

== ENCOUNTER 2018-09-21 14:22 | Inpatient (IN) ==
[2018-09-21] MEDS ORDERED: VANCOMYCIN 1 GM/NS 1 GM/250 ML IVPB IV ONE (15:15)
[2018-09-21] MEDS ORDERED: ZITHROMAX 500 MG/NS 500 MG/250 ML IVPB IV ONE (15:15)
[2018-09-21] MEDS ORDERED: ROCEPHIN 1 GM in NS 50 ML IV ONE (15:15)
--- NOTE | 2018-09-21 15:18 | Diag Imaging Result Doc PS360 ---
EXAM: CHEST-1 VIEW HISTORY: SOB TECHNIQUE: Chest single view COMPARISON: 09/12/2018 FINDINGS: Interval development of dense infiltrates throughout the right lung. There are smaller infiltrates in the left lung. No cardiomegaly. The left-sided PICC line has been removed. Small right pleural effusion. IMPRESSION: Development of dense right-sided infiltrates. Electronically signed by Elfego Delcid 09/21/2018 3:16 PM
[2018-09-21 15:26] LABS: BASO# 0.01 X1000 (0.0-0.2); BASO% 0.1 % (0.0-0.8); EOS# 0.03 X1000 (0.0-0.7); EOS% 0.2 % (0.0-10.0); HEMATOCRIT 30.5 % (37.0-47.0); IMM GRAN# 0.05 X1000 (0.0-0.04); IMM GRAN% 0.3 % (0.0-0.5); LYMPH# 1.15 X1000 (1.2-3.4); MCH 23.6 PG (27-31); MCHC 29.5 g/dL (33-37); MCV 79.8 FL (81-99); MONO% 6.9 % (1.7-9.3); MPV 10.8 FL (7.4-10.4); NEUT# 12.21 X1000 (1.4-6.5); NEUT% 84.5 % (42.2-75.2); PLT 205 X1000 (130-400); RBC 3.82 XMIL (4.2-5.4); RDW 22.5 % (11.5-14.5); WBC 14.45 X1000 (4.8-10.8)
[2018-09-21] MEDS ORDERED: NS 1,000 ML IV ONE ×2 (15:29→16:29)
[2018-09-21 15:36] LABS: ANISOCYTOSIS 1+; HYPOCHROM 1+; LYMPHS 8 % (21-51); MONO 8 % (1-9); SEGS 84 % (42-75); STOMATOCYTES 1+
[2018-09-21 15:43] LABS: INR 1.25; PROTIME 16.7 Seconds (11.0-16.0)
[2018-09-21 15:44] LABS: PTT 38.7 Seconds (22.3-41.8)
[2018-09-21 15:51] LABS: AGAP 9; ALB/GLOB RATIO 1.3; ALKALINE PHOSPHATASE 190 U/L (32-104); BUN 17 mg/dL (8-22); CALCIUM 8.7 mg/dL (8.8-10.2); CHLORIDE 97 mmol/L (98-107); CK PROFILE 21 U/L (24-173); COSMO 286; CREATININE 0.7 mg/dL (0.5-0.9); ESTIMATED GFR > 60; GLUCOSE 90 mg/dL (70-104); GOT 20 U/L (10-30); GPT 18 U/L (10-36); POTASSIUM 5.1 mmol/L (3.5-5.1); SODIUM 143 mmol/L (136-145); TCO2 37 mmol/L (25-35); TOTAL BILIRUBIN 0.72 mg/dL (0.20-1.00); TOTAL PROTEIN 5.3 g/dL (6.3-8.3)
[2018-09-21 16:34] LABS: URINE SOURCE CATH
[2018-09-21 16:43] LABS: BILIRUBIN URINE NEGATIVE (NEGATIVE); BLOOD URINE NEGATIVE (NEGATIVE); COLOR YELLOW; GLUCOSE URINE NEGATIVE (NEGATIVE); KETONE URINE NEGATIVE (NEGATIVE); LEUKOCYTES URINE NEGATIVE (NEGATIVE); NITRITE URINE NEGATIVE (NEGATIVE); PH URINE 8.5; PROTEIN URINE 70 mg/dL (NEGATIVE); SP GRAVITY URINE 1.014; TURBIDITY URINE CLEAR (CLEAR); UROBILINOGEN URINE NORMAL (NORMAL)
[2018-09-21 16:45] LABS: UR EPITHELIAL CELLS <10 /HPF (<10); URINE BACTERIA NEGATIVE /HPF; URINE RBC <10 /HPF (<10); URINE WBC <10 /HPF (<10)
--- NOTE | 2018-09-21 17:17 | PROVIDER DOCUMENTATION ---
This chart was entered by Danae Duffy Scribe, acting as scribe for Stephon Campbell MD. HPI-Respiratory General - General Chief Complaint: Shortness of Breath Stated Complaint: SOB Time Seen by Provider: 09/21/18 15:12 Source: patient Allergies/Adverse Reactions: Patient Allergies Allergy/AdvReac Type Severity Reaction Status Date / Time No Known Allergies Allergy Verified 09/06/18 22:25 Home Medications: Home Medication List Medication Instructions Recorded Confirmed Last Taken Type Escitalopram [Lexapro] 20 mg PO DAILY 01/12/18 09/06/18 Unknown History Magnesium Oxide 400 mg PO BID 01/12/18 09/06/18 Unknown History Pantoprazole [Protonix] 40 mg PO DAILY@0700 01/12/18 09/06/18 Unknown History Potassium Chloride E.r. [Klor-Con] 10 meq PO DAILY 01/12/18 09/06/18 Unknown History Quetiapine [Seroquel] 50 mg PO QHS #60 tab 01/15/18 09/06/18 Unknown Rx Alprazolam 1 mg PO TID PRN 09/06/18 09/06/18 Unknown History Oxycodone HCl 30 mg PO 3-4XDAY PRN PRN 09/06/18 09/06/18 Unknown History Apixaban [Eliquis] 5 mg PO BID #60 tab 09/12/18 Unknown Rx Diltiazem C.d. [Cardizem Cd] 180 mg PO DAILY #120 cap 09/12/18 Unknown Rx Ipratropium/Albuterol INH 1 puff INH RTQ6H PRN #1 inhaler 09/12/18 Unknown Rx [Combivent Respimat Inhaler] Levofloxacin [Levaquin] 500 mg PO DAILY #5 tab 09/12/18 Unknown Rx Prednisone [Deltasone] 20 mg PO DAILY #3 tab 09/12/18 Unknown Rx Tiotropium [place] [Spiriva 2.5 mcg INHALATION DAILY #1 09/12/18 Unknown Rx Respimat] mist.inhal - History of Present Illness-Resp Nature of Presenting Problem: Patient is a 72 year old female who presents to the ED via EMS with shortness of breath and cough. Patient report she was recently diagnosed with pneumonia and placed on antibiotics. Denies improvement of symptoms. States nausea and vomiting. Reports she is on 2 L of home O2. Quality of Pain: reports: tightness Severity in ED: reports: mild Onset/Duration: reports: gradual Timing: reports: still present, getting worse Cough Quality/Degree: reports: moderate, productive cough Episode Frequency: frequent episodes Current Respiratory Medication Therapy: Initiated see nurses note Modifying Factors: improves with: nothing Associated Symptoms: reports: cough, shortness of breath Similar Symptoms Previously?: Yes Recently seen or treated by another doctor?: Yes Review of Systems - Adult - REVIEW OF SYSTEMS - ADULT Constitutional: reports: no symptoms reported. denies: chills, fever, fatique Eyes: reports: no symptoms reported Ears, Nose, Mouth & Throat: reports: no symptoms reported Cardiovascular: reports: no symptoms reported Respiratory: reports: see HPI, cough, shortness of breath. denies: wheezing Gastrointestinal: reports: see HPI, nausea, vomiting. denies: abdominal pain, diarrhea Genitourinary: reports: no symptoms reported Musculoskeletal: reports: no symptoms reported Integumentary: reports: no symptoms reported Neurological: reports: no symptoms reported Psychiatric: reports: no symptoms reported Endocrine: reports: no symptoms reported Hematologic/Lymphatic: reports: no symptoms reported Allergic/Immunologic: reports: no symptoms reported All Other Systems: Reviewed and Negative Past History - Adult - PAST MEDICAL HISTORY-ADULT Review of Records: reports: Nursing Assessment Review, Medications Reviewed, Social history reviewed & non-contributory. Major Childhood Illnesses: reports: denies history Cardiovascular: reports: HTN Respiratory: reports: COPD Gastrointestinal: reports: cancer Obstetrical/Gynecological: reports: denies history Genitourinary: reports: denies history Musculoskeletal: reports: chronic pain Neurological: reports: denies history Psychiatric: reports: denies history Endocrine/Immune: reports: denies history Other Conditions: reports: denies history - PRIOR SURGERIES/PROCEDURES Surgical/Procedure History: reports: reviewed, not pertinent, hysterectomy - IMMUNIZATION STATUS Childhood Immunizations: See Nurse Assessment Flu Vaccine: See Nurse Assessment - FAMILY HISTORY Family History: reviewed, not pertinent - SOCIAL HISTORY Smoking: cigarettes (former) Substance Use: denies Physical Exam-General - PHYSICAL EXAM-ADULT Initial Vital Signs Reviewed: Yes - CONSTITUTIONAL General Appearance: alert, mild distress. negative: lethargic, slow to respond - RESPIRATORY Respiratory: respiratory distress (mild), decreased breath sounds (right), crackles (right), rhonchi (bilateral). negative: accessory muscle use, wheezing - CARDIOVASCULAR Cardiovascular: normal peripheral pulses, tachycardia. negative: systolic m urmur - SKIN Integumentary: normal color, normal turgor, warm/dry. negative: cyanosis, ecchymosis, erythema, jaundice - NEUROLOGIC Neurologic: grossly normal. negative: aphasia, facial droop Progress - PLAN OF CARE/RESULTS Progress/Plan/Lab Results: Vital Signs - 8 hr 09/21/18 14:27 09/21/18 14:36 09/21/18 14:39 Temperature 99.9 F H Pulse Rate 105 H Respiratory Rate 20 Blood Pressure 113/73 126/59 O2 Sat by Pulse Oximetry 93 L 58 L 95 09/21/18 14:40 09/21/18 14:50 09/21/18 15:00 Temperature Pulse Rate Respiratory Rate Blood Pressure O2 Sat by Pulse Oximetry 93 L 94 L 83 L 09/21/18 15:02 09/21/18 15:10 09/21/18 15:20 Temperature Pulse Rate 110 H Respiratory Rate 25 H Blood Pressure 141/75 O2 Sat by Pulse Oximetry 98 93 L 96 09/21/18 15:30 09/21/18 15:40 09/21/18 15:50 Temperature Pulse Rate 108 H 111 H 109 H Respiratory Rate 31 H 29 H 35 H Blood Pressure O2 Sat by Pulse Oximetry 96 91 L 93 L 09/21/18 16:00 09/21/18 16:10 09/21/18 16:14 Temperature Pulse Rate 113 H 109 H 109 H Respiratory Rate 20 24 18 Blood Pressure 134/59 O2 Sat by Pulse Oximetry 97 93 L 94 L Laboratory Results - last 24 hr 09/21/18 09/21/18 09/21/18 15:08 15:08 15:08 WBC 14.45 H RBC 3.82 L Hgb 9.0 L Hct 30.5 L MCV 79.8 L MCH 23.6 L MCHC 29.5 L RDW Std Deviation 22.5 H Plt Count 205 MPV 10.8 H Immature Gran % (Auto) 0.3 Neut % (Auto) 84.5 H Lymph % (Auto) 8.0 L [place] % (Auto) 6.9 Eos % (Auto) 0.2 Baso % (Auto) 0.1 Immature Gran # (Auto) 0.05 H Neut # (Auto) 12.21 H Lymph # (Auto) 1.15 L [place] # (Auto) 1.00 H Eos # (Auto) 0.03 Baso # (Auto) 0.01 Segmented Neutrophils 84 H Lymphocytes 8 L Monocytes 8 Hypochromia 1+ Anisocytosis 1+ Stomatocytes 1+ PT INR PTT (Actin FS) Sodium 143 Potassium 5.1 Chloride 97 L Carbon Dioxide 37 H Anion Gap 9 BUN 17 Creatinine 0.7 Estimated GFR/1.73 m2 > 60 BUN/Creatinine Ratio 24 Glucose 90 Calculated Osmolality 286 Calcium 8.7 L Total Bilirubin 0.72 AST 20 ALT 18 Alkaline Phosphatase 190 H Creatine Kinase 21 L Troponin T Total Protein 5.3 L Albumin 3.0 L Globulin 2.3 Albumin/Globulin Ratio 1.3 Plasma Lactate 1.4 Urine Source 09/21/18 09/21/18 09/21/18 15:08 15:08 16:05 WBC RBC Hgb Hct MCV MCH MCHC RDW Std Deviation Plt Count MPV Immature Gran % (Auto) Neut % (Auto) Lymph % (Auto) [place] % (Auto) Eos % (Auto) Baso % (Auto) Immature Gran # (Auto) Neut # (Auto) Lymph # (Auto) [place] # (Auto) Eos # (Auto) Baso # (Auto) Segmented Neutrophils Lymphocytes Monocytes Hypochromia Anisocytosis Stomatocytes PT 16.7 H INR 1.25 PTT (Actin FS) 38.7 Sodium Potassium Chloride Carbon Dioxide Anion Gap BUN Creatinine Estimated GFR/1.73 m2 BUN/Creatinine Ratio Glucose Calculated Osmolality Calcium Total Bilirubin AST ALT Alkaline Phosphatase Creatine Kinase Troponin T < 0.010 Total Protein Albumin Globulin Albumin/Globulin Ratio Plasma Lactate Urine Source CATH Orders Category Date Time Status Cardiac Monitoring DIRECTED Care 09/21/18 14:51 Active IV Insertion ORDERED Care 09/21/18 14:51 Completed Notify MD of + Sepsis Screen NOW Care 09/21/18 14:51 Active Notify Physician As Ordered Care 09/21/18 14:51 Active CHEST-1 VIEW [RAD] Stat Exams 09/21/18 14:51 Completed BLOOD CULTURE [BLDCUL] Stat Lab 09/21/18 16:00 Received CBC WITH DIFF [HEME] Stat Lab 09/21/18 15:08 Completed CK PROFILE [SP CHEM] Stat Lab 09/21/18 15:08 Completed COMPREHENSIVE METABOLIC PANEL [CHEM] Stat Lab 09/21/18 15:08 Completed LACTATE, PLASMA [CHEM] Lab 09/21/18 15:08 Completed LACTATE, PLASMA [CHEM] Lab 09/21/18 18:00 Uncollected LACTATE, PLASMA [CHEM] Lab 09/21/18 21:00 Uncollected PROTIME WITH INR [COAG] Stat Lab 09/21/18 15:08 Completed PTT [COAG] Stat Lab 09/21/18 15:08 Completed TROPONIN T Stat Lab 09/21/18 15:08 Completed URINALYSIS W/POSS RFLX CULT [URINALYSIS] Stat Lab 09/21/18 16:05 Results 0.9% Sodium Chloride Inj [Ns] 1,000 ml Med 09/21/18 15:29 Discontinued IV 999 mls/hr 0.9% Sodium Chloride Inj [Ns] 1,000 ml Med 09/21/18 16:29 Active IV 999 mls/hr Azithromycin 500 mg/Ns [Zithromax 500 mg/Ns] Med 09/21/18 15:15 Discontinued 500 mg in 250 ml IV NOW CefTRIAXONE [Rocephin] 1 gm Med 09/21/18 15:15 Discontinued 0.9% Sodium Chloride Inj [Ns] 50 ml IV NOW Vancomycin 1 gm/Ns Med 09/21/18 15:15 Discontinued 1 gm in 250 ml IV NOW Oxygen Device Stat Oth 09/21/18 14:51 Active Patient meets sepsis criteria. WBC and heart rate is elevated. Patient will receive fluids and antibiotics then be admitted to hospitalist. Result Diagrams: 09/21/18 15:08 09/21/18 15:08 - EKG 1 Time of EKG reading by physician:: 14:40 EKG Read and Signed by:: Juaquin Rodriguez EKG Interpretation (*Must complete 3 of following elements*): Abnormal Rate: 108 Rhythm: sinus tachycardia AL Interval: normal Comments: otherwise normal ECG - XRAY 1 XRAY Study: Chest Impression: See EMR Report ( EXAM: CHEST-1 VIEW HISTORY: SOB TECHNIQUE: Chest single view COMPARISON: 09/12/2018 FINDINGS: Interval development of dense infiltrates throughout the right lung. There are smaller infiltrates in the left lung. No cardiomegaly. The left-sided PICC line has been removed. Small right pleural effusion. IMPRESSION: Development of dense right-sided infiltrates. Electronically signed by Elfego Delcid 09/21/2018 3:16 PM 09/21/18 1516 Interpreting Physician: Elfego Delcid MD Dictated Date/Time: 09/21/18 1515 cc: Juaquin Rodriguez MD; None,PCP) - CONSULTS/PCP/HOSPITALIST Notification #1 *Consult/PCP/Hospitalist*: FAMILY WORKER Christine admitting for Dr. Russo Time Discussed: 16:36 Consult Disposition: Admit (Hx, PE and patient care discussed, accepted.) Departure - Departure Date of Disposition Decision: 09/21/18 Time of Disposition Decision: 16:38 DIAGNOSIS: Sepsis Qualifiers: Sepsis type: sepsis due to unspecified organism Qualified Code(s): A41.9 - Sepsis, unspecified organism Pneumonia Qualifiers: Pneumonia type: due to unspecified organism Laterality: right Lung location: unspecified part of lung Qualified Code(s): J18.9 - Pneumonia, unspecified organism Disposition: ADMITTED INPATIENT 09 Certified Medical Emergency: Emergent Condition: Stable Referrals and Follow-Ups: None,PCP [Primary Care Provider] - - Critical Care Note This patient required my direct & personal management of CC.: No Attestation - Physician/ RADHA Attestation Patient care was provided by Advanced Practice Provider:: No The physician spent face to face time with patient:: Yes Advanced Practice Provider documentation review:: Supervising physician onsite and consulted in the evaluation and care of this patient. The physician did have a face to face encounter with the patient. This chart was documented by the indicated scribe, (Danae Duffy Scribe) and acc urately reflects the services I performed and decisions made by me, Stephon Campbell MD, as attested by the provider's signature.
[2018-09-21 18:00] LABS: ALLEN TEST YES; BE 11.8 mmoll (-3.0-3.0); BLOOD TYPE ARTERIAL; HCO3-(ACT) 34.1 mmoll (20.0-26.0); METHB 1.3 % (0.0-1.5); O2(CT) 10.1 mL/dL (15.0-23.0); O2HB 92.3 % (95.0-99.0); PO2(98.6) 66 mmHg (60-100); SAMPLE BLOOD; SAO2 95.6 % (95.0-100.0); THB 7.7 g/dL (11.5-17.4); pH(98.6) 7.42 (7.35-7.45)
[2018-09-21 18:02] LABS: MODALITY VENTIMASK; PCO2(98.6) 58 mmHg (35-45)
--- NOTE | 2018-09-21 18:14 | HISTORY AND PHYSICAL ---
ADDENDUM: I agree with most components of history, physical, assessment and plan. In brief, Ms. Parkinson is a 72-year-old lady with past medical history of chronic obstructive pulmonary disease on home oxygen, paroxysmal atrial fibrillation on Eliquis, anxiety, depression, chronic GERD, who was recently discharged from [facility] for acute hypoxic respiratory failure due to COPD exacerbation requiring intubation of about 2 days. She was discharged 3 days ago. She comes in with findings of hypoxia and fever. Apparently, home care nurse was evaluating her and she was found to have hypoxia and temperature of 101 degrees, so she was advised to come to the emergency room. In the emergency room, she was found to be septic and so hospitalist service was consulted for further management. SUBJECTIVE: At the time of my evaluation, the patient is complaining of shortness of breath, cough with orange expectoration. She is also complaining of fever, increased sputum production. She denies any chest pain. We discussed about clinical exam findings, lab investigation, and pneumonia, and need for hospital admission. I answered all of her questions. PHYSICAL EXAMINATION: VITAL SIGNS: Temperature of 99.9 degrees, pulse of 113, appears sinus on monitor, respiratory rate of 18, blood pressure 134/59, saturating 94% on 50 L Venturi mask. GENERAL: Does not appear in any acute distress. HEENT: Oral cavity is moist. LUNGS: Adequate air entry with vesicular breath sounds on left hemithorax. She has considerably decreased air entry with inspiratory crackles entire right hemithorax. CARDIOVASCULAR: S1, S2 normal. No murmur or gallop. ABDOMEN: Soft, nontender. No lower extremity edema. LABORATORY DATA: Labs are significant for leukocytosis, microcytic anemia with iron deficiency on previous labs, normal kidney function, normal troponins. Microbiology: Blood culture in lab. IMAGING: Chest x-ray is suggestive of development of dense right-sided infiltrate. ASSESSMENT AND PLAN: 1. Acute on chronic hypoxic respiratory failure. 2. Acute chronic obstructive pulmonary disease exacerbation as the patient does have bilateral end-expiratory wheezes. 3. Right lung pneumonia. 4. Sepsis due to right lung pneumonia. 5. History of chronic obstructive pulmonary disease and chronic hypoxic respiratory failure, history of paroxysmal atrial fibrillation on home Eliquis, history of chronic anxiety, depression, history of gastroesophageal reflux disease. PLAN: I will start the patient on intravenous vancomycin and Zosyn. We will follow up with blood culture, sputum culture and urine antigen. We will continue oxygenation to maintain saturation between 88 to 92 percent. Admit the patient on [facility] floor. Plan of care discussed with her. All of her questions have been answered. cc: Konstantin Russo MD
[2018-09-21] MEDS ORDERED: ZOFRAN IV PRN (18:22)
[2018-09-21] MEDS ORDERED: DUONEB (A & A) INH PRN (18:22)
[2018-09-21] MEDS ORDERED: VANCOMYCIN IV PER PHARMACY MISC SCH (18:22)
[2018-09-21] MEDS: TYLENOL PO PRN (18:46)
[2018-09-21] MEDS: ZOSYN 3.375 GM in NS 50 ML IV SCH (18:47)
[2018-09-21] MEDS: NS 1,000 ML IV SCH (18:47)
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
[2018-09-21] MEDS: DUONEB (A & A) INH SCH ×2 (19:55→23:33)
[2018-09-21] MEDS: ELIQUIS PO SCH (22:47)
[2018-09-22] MEDS: TYLENOL PO PRN (00:12)
[2018-09-22] MEDS: ZOSYN 3.375 GM in NS 50 ML IV SCH ×4 (00:12→18:04)
[2018-09-22] MEDS: PERCOCET-10 PO PRN ×3 (01:10→19:48)
[2018-09-22] MEDS: XANAX PO PRN ×2 (01:38→13:22)
[2018-09-22] MEDS: DUONEB (A & A) INH SCH ×6 (04:08→23:19)
[2018-09-22 04:51] LABS: ALLEN TEST YES; BE 9.3 mmoll (-3.0-3.0); BLOOD TYPE ARTERIAL; HCO3-(ACT) 32.2 mmoll (20.0-26.0); METHB 0.7 % (0.0-1.5); O2(CT) 7.9 mL/dL (15.0-23.0); O2HB 92.5 % (95.0-99.0); PO2(98.6) 65 mmHg (60-100); SAMPLE BLOOD; SAO2 96.1 % (95.0-100.0); pH(98.6) 7.36 (7.35-7.45)
[2018-09-22 05:01] LABS: PCO2(98.6) 63 mmHg (35-45)
[2018-09-22 05:02] LABS: MODALITY CANNULA
[2018-09-22 05:56] LABS: AGAP 6; ALB/GLOB RATIO 0.9; ALBUMIN 2.1 g/dL (3.5-5.0); ALKALINE PHOSPHATASE 125 U/L (32-104); BUN 13 mg/dL (8-22); CALCIUM 7.6 mg/dL (8.8-10.2); CHLORIDE 101 mmol/L (98-107); COSMO 282; CREATININE 0.6 mg/dL (0.5-0.9); ESTIMATED GFR > 60; GLUCOSE 108 mg/dL (70-104); GOT 16 U/L (10-30); GPT 12 U/L (10-36); POTASSIUM 3.5 mmol/L (3.5-5.1); SODIUM 141 mmol/L (136-145); TCO2 34 mmol/L (25-35); TOTAL BILIRUBIN 0.42 mg/dL (0.20-1.00); TOTAL PROTEIN 4.4 g/dL (6.3-8.3)
[2018-09-22 06:22] LABS: BASO# 0.01 X1000 (0.0-0.2); BASO% 0.1 % (0.0-0.8); EOS# 0.07 X1000 (0.0-0.7); EOS% 0.7 % (0.0-10.0); HEMATOCRIT 23.8 % (37.0-47.0); IMM GRAN# 0.03 X1000 (0.0-0.04); IMM GRAN% 0.3 % (0.0-0.5); LYMPH# 0.92 X1000 (1.2-3.4); LYMPH% 9.7 % (20.5-51.1); MCH 23.3 PG (27-31); MCHC 29.4 g/dL (33-37); MCV 79.3 FL (81-99); MONO# 0.84 X1000 (0.11-0.59); MONO% 8.8 % (1.7-9.3); MPV 10.4 FL (7.4-10.4); NEUT# 7.66 X1000 (1.4-6.5); NEUT% 80.4 % (42.2-75.2); PLT 155 X1000 (130-400); RDW 22.1 % (11.5-14.5); WBC 9.53 X1000 (4.8-10.8)
[2018-09-22] MEDS: PRILOSEC PO SCH (06:33)
[2018-09-22] MEDS ORDERED: PROTONIX PO SCH (07:00)
--- NOTE | 2018-09-22 07:02 | Diag Imaging Result Doc PS360 ---
EXAM: CHEST-PORTABLE HISTORY: Pneumonia TECHNIQUE: Chest single view COMPARISON: 09/21/2018 FINDINGS: There are dense infiltrates throughout the right lung. These are slightly more pronounced than they were on the prior study. Interval development of infiltrates in the left base. The heart is borderline mildly prominent. There is a small right pleural effusion. IMPRESSION: Overall interval worsening. Electronically signed by Elfego Delcid 09/22/2018 7:00 AM
--- NOTE | 2018-09-22 07:21 | EKG Report ---
Test Performed on : 09/21/2018 2:40:17 PM Test Reason : ED. NO EKG ORDER FOR MUSE Blood Pressure : / mmHG Vent. Rate : 108 BPM Atrial Rate : 108 BPM P-R Int : 122 ms QRS Dur : 084 ms QT Int : 290 ms P-R-T Axes : 067 018 048 degrees QTc Int : 388 ms Sinus tachycardia. Otherwise normal ECG When compared with ECG of 08-SEP-2018 17:27, Sinus rhythm. has replaced Atrial fibrillation. ST no longer depressed in Inferior leads ST less depressed in Anterior leads T wave inversion no longer evident in Inferior leads T wave inversion no longer evident in Anterolateral leads Unconfirmed Result
[2018-09-22] MEDS: SPIRIVA INH SCH (07:40)
[2018-09-22] MEDS: NS 1,000 ML IV SCH (08:18)
[2018-09-22] MEDS: ELIQUIS PO SCH (09:01)
[2018-09-22] MEDS: CARDIZEM CD PO SCH (09:01)
[2018-09-22] MEDS ORDERED: LASIX IV ONE (10:35)
[2018-09-22] MEDS: KLOR-CON PO SCH ×2 (11:45→16:51)
[2018-09-22 12:09] LABS: IRON SATURATION 9 %; TIBC 124 ug/dL; TOTAL IRON 11 ug/dL (49-151); UNBOUND IRON 113 ug/dL (112-346)
--- NOTE | 2018-09-22 12:37 | PROGRESS NOTE ---
DATE: 09/22/2018 INTERVAL HISTORY: The patient was not given BiPAP at nighttime. SUBJECTIVE: She is denying new complaints. Denies any chest pain. Denies feeling short of breath. I discussed physical exam findings, worsening chest x-ray findings. Discussed about starting BiPAP. She states she has been coughing up, but she has not collected any sample. The cough looks pinkish. She has not noticed any andry blood in it. VITALS: Currently temperature 97.5 degrees, pulse 101, respiratory rate 20, blood pressure 130/62, saturating 94% on 3 L nasal cannula. PHYSICAL EXAMINATION: General: Cachectic-looking woman, not in any acute distress. Mouth: Oral cavity is moist. Lungs: Air entry decreased significantly on right hemithorax with inspiratory crackles. Adequate air entry, except infrascapular region on left. No wheeze or rhonchi. Heart: S1, S2 normal. Heart rate of 100 per minute. No murmur, rub, or gallop. Abdomen: Soft, nontender. Extremities: No lower extremity edema. LABS: Suggestive of resolution of leukocytosis, microcytic anemia with drop in hemoglobin. Coagulation studies had high INR. ABG suggestive of pH of 7.32 and worsening hypercarbia. Chemistry suggestive of low potassium and magnesium had not been drawn. I will replete the potassium. Sputum culture has not been collected yet. Blood culture has not shown any growth to date. ASSESSMENT AND PLAN: 1. Acute on chronic hypoxic respiratory failure with acute mild chronic obstructive pulmonary disease exacerbation due to predominantly right lung and left lower lobe pneumonia leading to sepsis. Follow up blood culture, sputum culture, urine antigens, and chest x-ray tomorrow. Continue oxygenation through BiPAP to maintain saturation 88 to 92 percent. Follow up arterial blood gas tomorrow. Continue intravenous vancomycin and Zosyn, albuterol ipratropium nebulization and give 1 time dose of Lasix. 2. History of atrial fibrillation with rapid ventricular rate. Electrocardiogram on admission had sinus tachycardia. Continue her home diltiazem with holding apixaban. 3. Microcytic anemia. Hold apixaban considering she had pinkish sputum and current drop in hemoglobin. Follow-up repeat hemoglobin to make sure she does not have hemoptysis contributing to it. I will also follow up with iron panel. 4. Others. Continue home medication of alprazolam for anxiety, Percocet for chronic pain, and omeprazole for chronic gastroesophageal reflux disease. DISPOSITION: I will continue to monitor patient in [facility] for close respiratory monitoring. All of her questions have been answered satisfactorily. cc: Konstantin Russo MD MTDD
[2018-09-22] MEDS: VANCOMYCIN 1 GM/NS 1 GM/250 ML IVPB IV SCH (16:01)
[2018-09-23] MEDS: XANAX PO PRN ×2 (03:25→15:38)
[2018-09-23] MEDS: PERCOCET-10 PO PRN ×3 (03:25→21:01)
[2018-09-23] MEDS: DUONEB (A & A) INH SCH ×6 (03:54→23:07)
[2018-09-23 04:30] LABS: ALLEN TEST YES; BE 12.9 mmoll (-3.0-3.0); BLOOD TYPE ARTERIAL; METHB 0.6 % (0.0-1.5); O2(CT) 9.1 mL/dL (15.0-23.0); O2HB 93.3 % (95.0-99.0); PO2(98.6) 62 mmHg (60-100); SAMPLE BLOOD; SAO2 96.1 % (95.0-100.0); THB 6.9 g/dL (11.5-17.4); pH(98.6) 7.45 (7.35-7.45)
[2018-09-23 04:32] LABS: MODALITY CANNULA; PCO2(98.6) 55 mmHg (35-45)
[2018-09-23 05:26] LABS: BASO# 0.02 X1000 (0.0-0.2); BASO% 0.2 % (0.0-0.8); EOS# 0.07 X1000 (0.0-0.7); EOS% 0.7 % (0.0-10.0); HEMATOCRIT 24.9 % (37.0-47.0); HEMOGLOBIN 7.3 g/dL (12.0-16.0); IMM GRAN# 0.02 X1000 (0.0-0.04); IMM GRAN% 0.2 % (0.0-0.5); LYMPH# 0.73 X1000 (1.2-3.4); LYMPH% 7.8 % (20.5-51.1); MCH 23.5 PG (27-31); MCHC 29.3 g/dL (33-37); MCV 80.3 FL (81-99); MONO# 0.77 X1000 (0.11-0.59); MONO% 8.2 % (1.7-9.3); MPV 10.7 FL (7.4-10.4); NEUT# 7.76 X1000 (1.4-6.5); NEUT% 82.9 % (42.2-75.2); PLT 156 X1000 (130-400); WBC 9.37 X1000 (4.8-10.8)
[2018-09-23 05:52] LABS: AGAP 7; BUN 11 mg/dL (8-22); CALCIUM 7.8 mg/dL (8.8-10.2); CHLORIDE 96 mmol/L (98-107); COSMO 273; CREATININE 0.7 mg/dL (0.5-0.9); ESTIMATED GFR > 60; GLUCOSE 126 mg/dL (70-104); MAGNESIUM 1.3 mg/dL (1.5-2.7); POTASSIUM 3.9 mmol/L (3.5-5.1); SODIUM 136 mmol/L (136-145); TCO2 33 mmol/L (25-35)
[2018-09-23] MEDS: PRILOSEC PO SCH (06:19)
[2018-09-23] MEDS: ZOSYN 3.375 GM in NS 50 ML IV SCH ×5 (06:19→20:00)
--- NOTE | 2018-09-23 06:40 | Diag Imaging Result Doc PS360 ---
EXAM: CHEST-PORTABLE HISTORY: dyspnea TECHNIQUE: Chest single view COMPARISON: 09/22/2018 FINDINGS: There are dense infiltrates throughout the right lung. These are less prominent than on the prior study. There has been improvement in the left lung is well. No cardiomegaly. Small pleural effusions. IMPRESSION: Bilateral infiltrates but with interval improvement compared to the prior study. Electronically signed by Elfego Delcid 09/23/2018 6:38 AM
[2018-09-23] MEDS ORDERED: LASIX IV ONE (07:39)
[2018-09-23] MEDS: CARDIZEM CD PO SCH (08:49)
[2018-09-23] MEDS: MAGNESIUM SULFATE 2 GM/S.W.I. 2 GM/50 ML IVPB IV SCH ×2 (08:49→14:22)
[2018-09-23] MEDS: SPIRIVA INH SCH (08:50)
--- NOTE | 2018-09-23 12:24 | PROGRESS NOTE ---
DATE: 09/23/2018 INTERVAL HISTORY: No acute overnight events. The patient has been maintaining adequate oxygenation. However, she refused to wear BiPAP yesterday, and the BiPAP was on only for 15 to 20 minutes following which she refused to wear it back. She denies any new complaints. She is coughing up some sputum, and on the bedside sputum collection continues to be tinged with blood, which appears bright red or clotted, which appears brown on my examination. She denies any fever, chest pain or shortness of breath. VITAL SIGNS: Temperature of 97.9 degrees, pulse of 91, respiratory rate 17, blood pressure 122/66. She is saturating 90 to 96 percent on 3 L nasal cannula. PHYSICAL EXAMINATION: General: She does not appear in any acute distress. Oral cavity is moist. Decreased air entry with inspiratory crackles entire right hemithorax especially mid and lower lung zones. She also has inspiratory crackles on left infrascapular region. Good air entry and vesicular breath sound on left upper and middle lung zone. Abdomen: Soft, nontender. Extremities: No lower extremity edema. LABORATORY: Blood culture did not show any growth to date. Sputum culture is not in lab yet. Labs suggestive of microcytic anemia. Anemia panel does not suggest iron deficiency, and hemoglobin is also dropping. ABG suggestive of hypercarbia, likely because of chronic obstructive pulmonary disease with adequate oxygenation. Hypomagnesemia which is being repleted with normal kidney function. IMAGING: Chest x-ray today suggest bilateral infiltrates, but with interval improvement compared to prior study. ASSESSMENT AND PLAN: 1. Acute on chronic hypoxic respiratory failure and sepsis due to mild acute COPD exacerbation, and predominantly right-sided lung and left lower lobe infiltrate, likely in the setting of hospital-acquired pneumonia since the patient was recently discharged. Follow up final blood culture results. Sputum culture results. Urine antigen. Give additional dose of Lasix and follow up CT scan thorax to rule out alveolar hemorrhage considering her hemoptysis. She is refusing to wear BiPAP. Continue intravenous vancomycin and Zosyn with a plan of changing it to p.o. antibiotics potentially tomorrow. Continue oxygenation to maintain saturation 88 to 92 percent. Depending on her course in the future, I might consider pulmonology consult. 3. History of atrial fibrillation with rapid ventricular rate on last admission. Currently, she is in sinus rhythm. Continue home diltiazem and hold apixaban considering her hemoptysis and likely acute blood loss anemia. 4. Microcytic anemia with decreasing hemoglobin. Currently, no need of transfusion. She does not have overt bleeding, and the sputum amount expectorated is also very less with maroon which appears old blood. Iron panel did not detect significant iron deficiency. 5. Others: Continue home alprazolam for anxiety, Percocet for chronic pain, omeprazole for chronic GERD. DISPOSITION: The patient remains hemodynamically stable. Depending on chest CT and hemoglobin, I would consider pulmonology consultation. I will continue to monitor patient in [facility]. If she continues to remain stable, the eventual plan could be to change her antibiotics to something she can take by mouth if the sputum culture is back in next 24 to 48 hours, discharge her home on home oxygen. Plan of care was discussed with her. All of her questions have been answered. cc: Konstantin Russo MD MTDD
--- NOTE | 2018-09-23 13:23 | Diag Imaging Result Doc PS360 ---
EXAM: CT THORAX W/O CONTRAST INDICATION: Evaluate for alveolar hemorrhage TECHNIQUE: This exam was performed using automated exposure control, adjustment of mA or kV according to patient size, and/or use of iterative reconstruction technique. COMPARISON: None. FINDINGS: There is moderate to advanced pulmonary emphysema. There are numerous very dense airspace consolidations throughout the right lung. There are a few much milder but similar focal dense consolidations involving the inferior aspect of the left upper lobe and the left lower lobe. Some of these opacities appear vaguely rounded and masslike. The largest of these dense focal opacities is in the right upper lobe on image 34 of series 3 and measures up to 5.1 x 3.4 cm axially. This probably represents severe multilobar pneumonia. However, an underlying neoplastic process cannot completely be excluded. Follow-up is recommended with a repeat CT after treatment. There is a 1.2 cm spiculated focus at the left lung apex. This may not be part of the same process and could represent focal scarring. Again, follow-up CT is recommended. Although the presentation can vary, the pattern of the dense consolidations mentioned above is not the typical pattern seen in diffuse alveolar hemorrhage. There is a small left pleural effusion and a moderate-sized right pleural effusion. There is associated dependent atelectasis bilaterally. There are a few small shotty mediastinal lymph nodes that are nonspecific. They could be reactive. There is no cardiomegaly. Limited views of the upper abdomen are essentially unremarkable. IMPRESSION: 1.Very dense multifocal patchy airspace consolidation throughout the right lung and, to a much lesser degree, the mid and lower lung zone on the left. Although severe multilobar pneumonia is a top differential consideration, a neoplastic process cannot be excluded. Follow-up is recommended after treatment. 2.Small spiculated focus near the left lung apex that may not a part of the same process mentioned above. This could represent focal scarring. Again, follow-up chest CT is recommended. 3.Moderate-sized right pleural effusion and small left effusion with associated atelectasis. 4.Pulmonary emphysema. Electronically signed by Immanuel Marino 09/23/2018 1:21 PM
[2018-09-23] MEDS: VANCOMYCIN 1 GM/NS 1 GM/250 ML IVPB IV SCH (17:39)
[2018-09-23] MEDS: TYLENOL PO PRN (22:49)
[2018-09-24] MEDS: XANAX PO PRN ×2 (02:50→15:29)
[2018-09-24] MEDS: ZOSYN 3.375 GM in NS 50 ML IV SCH ×4 (02:50→20:47)
[2018-09-24] MEDS: PERCOCET-10 PO PRN ×4 (02:50→21:46)
[2018-09-24] MEDS: DUONEB (A & A) INH SCH ×6 (03:30→23:15)
[2018-09-24 05:31] LABS: BASO# 0.01 X1000 (0.0-0.2); BASO% 0.1 % (0.0-0.8); EOS# 0.06 X1000 (0.0-0.7); EOS% 0.8 % (0.0-10.0); HEMATOCRIT 24.6 % (37.0-47.0); HEMOGLOBIN 7.3 g/dL (12.0-16.0); IMM GRAN# 0.03 X1000 (0.0-0.04); IMM GRAN% 0.4 % (0.0-0.5); LYMPH# 1.16 X1000 (1.2-3.4); LYMPH% 16.3 % (20.5-51.1); MCH 23.1 PG (27-31); MCHC 29.7 g/dL (33-37); MCV 77.8 FL (81-99); MONO# 0.67 X1000 (0.11-0.59); MONO% 9.4 % (1.7-9.3); MPV 11.1 FL (7.4-10.4); NEUT# 5.19 X1000 (1.4-6.5); PLT 160 X1000 (130-400); RBC 3.16 XMIL (4.2-5.4); RDW 21.9 % (11.5-14.5); WBC 7.12 X1000 (4.8-10.8)
[2018-09-24] MEDS: PRILOSEC PO SCH (05:39)
[2018-09-24 05:42] LABS: AGAP 9; BUN 12 mg/dL (8-22); CALCIUM 8.1 mg/dL (8.8-10.2); CHLORIDE 95 mmol/L (98-107); COSMO 276; CREATININE 0.7 mg/dL (0.5-0.9); ESTIMATED GFR > 60; GLUCOSE 113 mg/dL (70-104); POTASSIUM 3.8 mmol/L (3.5-5.1); SODIUM 138 mmol/L (136-145); TCO2 34 mmol/L (25-35)
[2018-09-24] MEDS: PROTONIX PO SCH (06:17)
[2018-09-24] MEDS: SPIRIVA INH SCH (08:11)
--- NOTE | 2018-09-24 08:17 | PROGRESS NOTE ---
DATE: 09/24/2018 SUBJECTIVE: This patient states that she is feeling better. At this moment, she is on 4 L of nasal cannula and the oxygen saturation is around 92. Blood pressure has been stable. No fever. Laboratory showed a low hemoglobin at 7.3 that compared with yesterday's about the same. CT scan done yesterday showed a very dense multifocal patchy airspace consolidation throughout the right lung, and to a much lesser degree the mid and lower lung zone on the left although severe multilobar pneumonia is a top differential consideration, a neoplastic process cannot be excluded. Follow-up images are recommended. There is a small spiculated focus near the left lung apex that may not be part of the same process. This could be a focal scarring. Follow up CT of chest is recommended. Also, moderate sized right pleural effusion and small left effusion with associated atelectasis, pulmonary emphysema. OBJECTIVE: Vital Signs: Temperature 98.4 degrees, pulse 85, respiratory rate 22, blood pressure 100/43 and oxygen saturation 92 on 4 L of nasal cannula. HEENT: Head normocephalic. No trauma. PERRLA. Neck: Supple. No JVD. No masses. Central trachea. Chest: Coarse breath sounds bilaterally with decreased breath sounds, crackles at the bases and rhonchi bilaterally mostly on the right side. Abdomen: Soft, nontender, and nondistended. No hepatosplenomegaly. Extremities: No edema. No clubbing. No cyanosis. Neurological: The patient is alert and oriented x3. No focal deficits. LABORATORY: The sputum culture and blood cultures so far are negative. WBC 7.1, hemoglobin 7.3, hematocrit 24.6, and platelets 160,000. Sodium 138, potassium 3.8, chloride 95, bicarbonate 34, BUN 12, creatinine 0.7, glucose 113, calcium 8.1, and magnesium 2. ASSESSMENT AND PLAN: 1. Acute on chronic hypoxemic and hypercarbic respiratory failure secondary to multifocal pneumonia and COPD exacerbation. CT scan of the chest showed a very dense multifocal patchy air airspace consolidation throughout the right lung, and also to the mid and lower lungs zone on the left. A neoplastic process cannot be excluded. Follow up with CT scan has been recommended in the future. Also, a small spiculated area near the left lung apex that may not be part of the same process, but we need to follow up with a CT chest also for this lesion. She has a moderate sized right pleural effusion and small left effusion with associated atelectasis, and pulmonary emphysema. She has been placed on vancomycin and Zosyn since basically admission. We will continue with the same management for now since she has not been complaining of fever or chills, and the white blood cell normalized. I have requested an evaluation by Pulmonary Department as well. 2. Multifocal pneumonia as above. 3. COPD exacerbation as above. Continue breathing treatment, antibiotics, and oxygen supplementation. She is on home O2. 4. History of atrial fibrillation with RVR on the last admission. Currently, she is fine, sinus. Continue with the same medications. Eliquis has been held due to low hemoglobin and some hemoptysis. 5. Hemoptysis, likely secondary to multifocal pneumonia in the setting of anticoagulation. We have requested an evaluation by Pulmonary Department to evaluate this patient. 6. Microcytic anemia. I do not think she needs an urgent blood transfusion at this moment. The hemoglobin is about the same compared with yesterday. We will monitor for now. 7. Anxiety. Continue with same management. 8. Chronic pain. Continue with Percocet. 9. GI prophylaxis with omeprazole. 10. GERD. Continue with proton pump inhibitors. 11. Overall, as per the patient, she is feeling better, but she has a really dense multifocal pneumonia and respiratory failure. She has been on home O2, I have requested an evaluation by Pulmonary Department pending recommendations. cc: Dave Huerta MD MTDD
[2018-09-24] MEDS: CARDIZEM CD PO SCH (08:59)
--- NOTE | 2018-09-24 13:32 | PROVIDER PROGRESS NOTE ---
Progress Note Pulmonary Consult Case Evaluated. Full dictation to follow. A/p Pneumonia likely explain the CT findings. However will repeat CT later on. COPD Pleural effusion on eliquis and being held. Will check probnp and follow imaging to decide on thoracentesis if needed. Continue antibiotics and current treatment.
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
[2018-09-24] MEDS: VANCOMYCIN 1 GM/NS 1 GM/250 ML IVPB IV SCH (16:47)
[2018-09-25] MEDS: ZOSYN ONE ×2 (02:25→05:20)
[2018-09-25] MEDS: ZOSYN 3.375 GM in NS 50 ML IV SCH ×4 (02:31→20:45)
[2018-09-25] MEDS: DUONEB (A & A) INH SCH ×5 (03:09→19:10)
[2018-09-25 04:57] LABS: ALLEN TEST YES; BE 11.3 mmoll (-3.0-3.0); BLOOD TYPE ARTERIAL; HCO3-(ACT) 33.7 mmoll (20.0-26.0); METHB 1.1 % (0.0-1.5); O2(CT) 7.7 mL/dL (15.0-23.0); O2HB 91.8 % (95.0-99.0); PO2(98.6) 60 mmHg (60-100); SAMPLE BLOOD; SAO2 95.4 % (95.0-100.0); THB 5.9 g/dL (11.5-17.4); pH(98.6) 7.37 (7.35-7.45)
[2018-09-25 04:59] LABS: MODALITY CANNULA; PCO2(98.6) 65 mmHg (35-45)
[2018-09-25] MEDS: PROTONIX PO SCH (06:17)
--- NOTE | 2018-09-25 07:35 | Diag Imaging Result Doc PS360 ---
CHEST-1 VIEW - 09/25/2018 INDICATION: SOB COMPARISON: 09/23/2018 FINDINGS: There are stable extensive infiltrates throughout the right lung involving multiple lobes. The left lung remains clear. Heart size is normal. IMPRESSION: Extensive multilobar right-sided pneumonia. No significant change from prior. Electronically signed by Klever Kumar 09/25/2018 7:33 AM
[2018-09-25 07:55] LABS: BASO# 0.01 X1000 (0.0-0.2); BASO% 0.2 % (0.0-0.8); EOS# 0.08 X1000 (0.0-0.7); EOS% 1.3 % (0.0-10.0); HEMOGLOBIN 7.5 g/dL (12.0-16.0); IMM GRAN# 0.02 X1000 (0.0-0.04); IMM GRAN% 0.3 % (0.0-0.5); LYMPH% 16.6 % (20.5-51.1); MCH 22.9 PG (27-31); MCHC 28.8 g/dL (33-37); MCV 79.5 FL (81-99); MONO# 0.62 X1000 (0.11-0.59); MONO% 10.3 % (1.7-9.3); MPV 10.8 FL (7.4-10.4); NEUT# 4.31 X1000 (1.4-6.5); NEUT% 71.3 % (42.2-75.2); PLT 190 X1000 (130-400); RBC 3.27 XMIL (4.2-5.4); RDW 22.2 % (11.5-14.5); WBC 6.04 X1000 (4.8-10.8)
[2018-09-25] MEDS: SPIRIVA INH SCH (08:23)
[2018-09-25 08:33] LABS: AGAP 5; BUN 13 mg/dL (8-22); CALCIUM 8.5 mg/dL (8.8-10.2); CHLORIDE 96 mmol/L (98-107); COSMO 274; CREATININE 0.5 mg/dL (0.5-0.9); ESTIMATED GFR > 60; GLUCOSE 75 mg/dL (70-104); POTASSIUM 4.2 mmol/L (3.5-5.1); SODIUM 138 mmol/L (136-145); TCO2 37 mmol/L (25-35)
[2018-09-25] MEDS ORDERED: LASIX IV ONE (09:03)
[2018-09-25] MEDS: PERCOCET-10 PO PRN ×3 (09:26→21:30)
[2018-09-25] MEDS: CARDIZEM CD PO SCH (09:26)
--- NOTE | 2018-09-25 10:25 | Diag Imaging Result Doc PS360 ---
US CHEST W/O MEDIASTINUM(LTD) - 09/25/2018 INDICATION: therapeutic and diagnostic TECHNIQUE: COMPARISON: CT from 09/23/2018 FINDINGS: There is been significant decrease in the right pleural effusion. This now probably measures less than 200 cc. Not enough to safely drain. IMPRESSION: Trace right pleural effusion. No procedure performed. Electronically signed by Klever Kumar 09/25/2018 10:22 AM
--- NOTE | 2018-09-25 10:35 | PROGRESS NOTE ---
DATE: 09/25/2018 SUBJECTIVE: This patient is lying comfortably in bed. She is not complaining of chest pain, some shortness of breath. Pulmonary Department evaluated this patient, and the plan is to get a thoracentesis done. Her right lung has a multifocal patchy consolidation throughout, and also on the left lung, but in a lesser degree, also she has pulmonary emphysema and right pleural effusion of moderate size. OBJECTIVE: Vital Signs: Temperature 98 degrees, pulse 93, respiratory rate 16, blood pressure 103/39. Oxygen saturation 95% on 3 L of nasal cannula. HEENT: Head normocephalic. No trauma. PERRLA. Neck: Supple. No JVD. No masses. Central trachea. Chest: Coarse breath sounds bilaterally with crackles and rhonchi on the right side, which is generalized, and a little bit on the left side mostly at the level of the base. Mild faint and expiratory wheezing. Abdomen: Soft. Nontender. Nondistended. No hepatosplenomegaly. Extremities: No edema. No clubbing. No cyanosis. Neurological: This patient is alert. She is oriented. She is following commands. No focal deficits. LABORATORY: WBC 6, hemoglobin 7.5, hematocrit 26, and platelets 190,000. Sodium 138, potassium 4.2, chloride 96, bicarbonate 37, BUN 13, creatinine 0.5, glucose 75, calcium 8.5, and magnesium 1.8. ASSESSMENT AND PLAN: 1. Acute on chronic hypoxemic and hypercarbic respiratory failure secondary to multifocal pneumonia and COPD exacerbation. CT scan of the chest showed a very dense multifocal patchy airspace consolidation throughout the right lung, and also a little bit on the left lung. A neoplastic process cannot be excluded. They recommended to follow up with CT scan in the future. Also, there is a small spiculated area near the lung apex that may be not part of the same process, but also a CT scan should be done in the future to monitor this lesion. She has a moderate-sized right pleural effusion and small left effusion with associated atelectasis and pulmonary emphysema. The plan is to go ahead and get a thoracentesis done on the right side today. Pulmonary Department following this patient. 2. Multiple focal pneumonia, mostly on the right side, aware. 3. COPD exacerbation as above. Continue with breathing treatment, antibiotics, and oxygen supplementation. She is on home O2. 4. History of atrial fibrillation with RVR on the last admission. Currently, she is fine, rate controlled, but Eliquis has been held due to low hemoglobin and some hemoptysis. 5. Hemoptysis likely secondary to these multifocal pneumonia in the setting of anticoagulation. She will have a thoracentesis done. We need to rule out any malignancy. 6. Anxiety. Continue with the same management. 7. Chronic pain. Continue with Percocet. 8. Gastrointestinal prophylaxis with omeprazole. 9. Gastroesophageal reflux disease. Continue proton pump inhibitors. 10. Overall, this patient is feeling better, but she has a really dense multifocal pneumonia and respiratory failure. She has been on home O2. Pulmonary Department on board. I will request physical therapy to see how she does as well. cc: Dave Huerta MD
[2018-09-25] MEDS: XANAX PO PRN (15:29)
[2018-09-25] MEDS: VANCOMYCIN 1,300 MG in NS 250 ML IV SCH (17:59)
[2018-09-26] MEDS: DUONEB (A & A) INH SCH ×4 (01:42→11:49)
[2018-09-26] MEDS: ZOSYN 3.375 GM in NS 50 ML IV SCH ×3 (03:30→10:10)
[2018-09-26] MEDS: XANAX PO PRN (04:05)
[2018-09-26] MEDS: PERCOCET-10 PO PRN (04:05)
[2018-09-26 05:08] LABS: ALLEN TEST YES; BE 12.8 mmoll (-3.0-3.0); BLOOD TYPE ARTERIAL; HCO3-(ACT) 34.9 mmoll (20.0-26.0); METHB 0.9 % (0.0-1.5); O2(CT) 11.5 mL/dL (15.0-23.0); O2HB 94.5 % (95.0-99.0); PO2(98.6) 73 mmHg (60-100); SAMPLE BLOOD; THB 8.6 g/dL (11.5-17.4); pH(98.6) 7.36 (7.35-7.45)
[2018-09-26 05:13] LABS: MODALITY CANNULA; PCO2(98.6) 71 mmHg (35-45)
[2018-09-26] MEDS: PROTONIX PO SCH (06:33)
[2018-09-26 07:46] LABS: BASO# 0.02 X1000 (0.0-0.2); BASO% 0.4 % (0.0-0.8); EOS# 0.08 X1000 (0.0-0.7); EOS% 1.5 % (0.0-10.0); HEMATOCRIT 28.5 % (37.0-47.0); HEMOGLOBIN 8.3 g/dL (12.0-16.0); IMM GRAN# 0.02 X1000 (0.0-0.04); IMM GRAN% 0.4 % (0.0-0.5); LYMPH# 0.98 X1000 (1.2-3.4); LYMPH% 18.6 % (20.5-51.1); MCH 23.9 PG (27-31); MCHC 29.1 g/dL (33-37); MCV 82.1 FL (81-99); MONO# 0.68 X1000 (0.11-0.59); MONO% 12.9 % (1.7-9.3); MPV 11.7 FL (7.4-10.4); NEUT# 3.49 X1000 (1.4-6.5); NEUT% 66.2 % (42.2-75.2); PLT 207 X1000 (130-400); RBC 3.47 XMIL (4.2-5.4); WBC 5.27 X1000 (4.8-10.8)
[2018-09-26 08:17] LABS: AGAP 5; BUN 15 mg/dL (8-22); CALCIUM 8.3 mg/dL (8.8-10.2); CHLORIDE 97 mmol/L (98-107); COSMO 279; CREATININE 0.6 mg/dL (0.5-0.9); ESTIMATED GFR > 60; GLUCOSE 108 mg/dL (70-104); POTASSIUM 4.2 mmol/L (3.5-5.1); SODIUM 139 mmol/L (136-145); TCO2 37 mmol/L (25-35)
[2018-09-26] MEDS ORDERED: PERCOCET-5 PO PRN (08:34)
[2018-09-26] MEDS: SPIRIVA INH SCH (08:39)
[2018-09-26] MEDS: CARDIZEM CD PO SCH (10:03)
[2018-09-26] MEDS: VANCOMYCIN 1,300 MG in NS 250 ML IV SCH (10:57)
[2018-09-26 12:19] VITALS: BP 104/43
[2018-09-26] MEDS ORDERED: XANAX PO PRN (16:00)
--- NOTE | 2018-09-26 20:40 | DISCHARGE SUMMARY ---
ADMISSION DATE: 09/21/2018 DISCHARGE DATE: 09/26/2018 PRIMARY CARE PHYSICIAN: None but is followed by [facility]. ADMISSION DIAGNOSIS: 1. Right-sided dense infiltrate. 2. Atrial fibrillation. 3. Acute hypoxemic respiratory failure. 4. Chronic obstructive pulmonary disease. 5. Gastroesophageal reflux disease. 6. Pulmonary embolism diagnosed December 2017, on chronic anticoagulation. 7. Chronic pain secondary to a left wrist injury. 8. Anxiety. 9. History of colon cancer status post chemotherapy. DISCHARGE DIAGNOSIS: 1. Acute on chronic hypoxemic and hypercarbic respiratory failure secondary to multifocal pneumonia and chronic obstructive pulmonary disease exacerbation. 2. Multifocal pneumonia mostly on the right side. 3. Chronic obstructive pulmonary disease exacerbation. 4. History of atrial fibrillation currently on chronic anticoagulation. 5. Anxiety. 6. Chronic pain. 7. Gastroesophageal reflux disease. SUMMARY OF FINDINGS: This is a 72-year-old female who presented to the emergency room after she was sent by her home health nurse who she states that she had been having a productive cough, shortness of breath and had to go up on her oxygen to 3 L but did not see much improvement in her symptoms. Chest x-ray in the emergency room showed a development of a dense right-sided infiltrate and a smaller infiltrate in the left lung and a right pleural effusion. She had a white count of 14. She was apparently hypoxic and had a low-grade fever on arrival. She was admitted, placed on IV antibiotics, O2 per protocol. We did consult Pulmonology and was discussed at length with Dr. Morales. After completing her treatments he feels that it is safe for her to be discharged home and wanted her placed on Augmentin and we will also add Cipro for 2 weeks and will follow up with Dr. Morales in this next week and call the office for an appointment. She will continue her home oxygen and will also continue home health and it is felt that she can now safely be discharged home per pulmonology recommendations. DISCHARGE MEDICATIONS: 1 mg p.o. b.i.d., Augmentin 875 mg p.o. q.12 hours #14 days, Eliquis 5 mg p.o. b.i.d., Cipro 500 mg p.o. b.i.d. for 14 days, Cardizem CD 180 mg p.o. daily, Lexapro 20 mg p.o. daily, Combivent Respimat inhaler 1 puff inhalation q.6 hours p.r.n., magnesium oxide 400 mg p.o. b.i.d., Percocet 10 one p.o. 4 times daily p.r.n., Protonix 40 mg p.o. daily. FOLLOWUP: Again she will need to follow up with Dr. Morales. Call his office on Friday for an appointment time. She will follow up with her primary care physician and she will have home health care as well. TIME SPENT: 35 minutes. Dictated by VERNON Snell for Dave Huerta MD cc: MD Dave Guerra MD MTDD
== END 2018-09-26 15:38 | disposition home health service (06) | DRG 189 ==
LOC: SUPCPDRO → ED 14:22 → EDIPHOLD 17:54 → SUATTDRO 17:54 → 3S 22:49 → 3N 09-24 17:57
PROVIDERS: ATTEND Internal Medicine
CPT/HCPCS: 36430; 51701; 71010; 71045; 71250; 76604; 80048; 80053; 80202; 81001; 82550; 82728; 82805; 83540; 83550; 83605; 83735; 83880; 84484; 85018; 85025; 85610; 85730; 86850; 86900; 86901; 86920; 87040; 87070; 87205; 87449; 87899; 93005; 94640; 94660; 94761; 94799; 96365; 96366; 96367; 96368; 96375; 97161; 99285; A9270; J0456; J0696; J1940; J2405; J2543; J3370; J3475; J7030; J7050; P9016; P9612

== ENCOUNTER 2018-10-20 10:00 | Inpatient (IN) ==
[2018-10-20] MEDS ORDERED: NS 1,000 ML IV ONE ×2 (10:11→11:35)
[2018-10-20] MEDS ORDERED: CARDIZEM IV ONE (10:11)
--- NOTE | 2018-10-20 10:51 | EKG Report ---
Test Performed on : 10/20/2018 10:04:36 AM Test Reason : CP Blood Pressure : / mmHG Vent. Rate : 171 BPM Atrial Rate : 322 BPM P-R Int : 000 ms QRS Dur : 062 ms QT Int : 278 ms P-R-T Axes : 000 056 036 degrees QTc Int : 468 ms Atrial flutter. with variable AV block. Low voltage QRS Septal infarct , age undetermined Abnormal ECG When compared with ECG of 21-SEP-2018 14:40, (Unconfirmed) Atrial flutter. has replaced Sinus rhythm. Vent. rate has increased BY 63 BPM Septal infarct is now present ST no longer depressed in Anterior leads Unconfirmed Result
--- NOTE | 2018-10-20 11:17 | Diag Imaging Result Doc PS360 ---
CHEST-1 VIEW - 10/20/2018 INDICATION: SOB COMPARISON: 09/25/2018 FINDINGS: There has been significant improvement in the dense infiltrates all throughout the right lung. There is slight worsening in the hazy interstitial infiltrates in the left upper and lower lobes. No pneumothorax or large pleural effusion. Heart size is slightly enlarged. IMPRESSION: Mixed changes from prior, with overall some slight improvement. Bilateral indeterminate infiltrates. Cardiomegaly. Electronically signed by Klever Kumar 10/20/2018 11:15 AM
[2018-10-20 12:26] LABS: PROTIME 17.7 Seconds (11.0-16.0)
[2018-10-20 12:27] LABS: BASO# 0.05 X1000 (0.0-0.2); BASO% 0.2 % (0.0-0.8); EOS# 0.01 X1000 (0.0-0.7); HEMATOCRIT 33.3 % (37.0-47.0); HEMOGLOBIN 9.5 g/dL (12.0-16.0); IMM GRAN# 0.08 X1000 (0.0-0.04); IMM GRAN% 0.3 % (0.0-0.5); INR 1.35; LYMPH# 1.08 X1000 (1.2-3.4); LYMPH% 3.9 % (20.5-51.1); MCHC 28.5 g/dL (33-37); MCV 87.6 FL (81-99); MONO# 2.01 X1000 (0.11-0.59); MONO% 7.2 % (1.7-9.3); NEUT# 24.64 X1000 (1.4-6.5); NEUT% 88.4 % (42.2-75.2); PLT 245 X1000 (130-400); PTT 21.1 Seconds (22.3-41.8); RDW 21.4 % (11.5-14.5); WBC 27.87 X1000 (4.8-10.8)
[2018-10-20] MEDS ORDERED: ZOSYN 4.5 GM in NS 100 ML IV ONE (12:31)
[2018-10-20] MEDS ORDERED: VANCOMYCIN 1 GM/NS 1 GM/250 ML IVPB IV ONE (12:31)
[2018-10-20 12:47] LABS: ALBUMIN 2.9 g/dL (3.5-5.0); CALCIUM 7.7 mg/dL (8.8-10.2); POTASSIUM 5.3 mmol/L (3.5-5.1); TOTAL BILIRUBIN 0.41 mg/dL (0.20-1.00); TOTAL PROTEIN 5.7 g/dL (6.3-8.3)
--- NOTE | 2018-10-20 13:42 | PROVIDER DOCUMENTATION ---
This chart was entered by Danae Duffy Scribe, acting as scribe for Jorge Sultana MD. HPI-Cardiac General - General Stated Complaint: AFIB, RVR Time Seen by Provider: 10/20/18 10:07 Source: patient Allergies/Adverse Reactions: Patient Allergies Allergy/AdvReac Type Severity Reaction Status Date / Time No Known Allergies Allergy Verified 10/20/18 10:55 Home Medications: Home Medication List Medication Instructions Recorded Confirmed Last Taken Type Escitalopram [Lexapro] 20 mg PO DAILY 01/12/18 10/20/18 Unknown History Magnesium Oxide 400 mg PO BID 01/12/18 10/20/18 Unknown History Pantoprazole [Protonix] 40 mg PO DAILY@0700 01/12/18 10/20/18 Unknown History Alprazolam 1 mg PO BID 09/06/18 10/20/18 Unknown History Apixaban [Eliquis] 5 mg PO BID #60 tab 09/12/18 10/20/18 Unknown Rx Diltiazem C.d. [Cardizem Cd] 180 mg PO DAILY #120 cap 09/12/18 10/20/18 Unknown Rx Amlodipine [Norvasc] 1 tab PO BID 10/20/18 10/20/18 Unknown History Amoxicillin/Pot Clavulanate 1 tab PO BID 10/20/18 10/20/18 Unknown History [Augmentin] Fluticasone/Salmeterol [Advair 1 puff INH BID 10/20/18 10/20/18 Unknown History 250-50 Diskus] Ipratropium/Albuterol INH 1 puff INH BID 10/20/18 10/20/18 Unknown History [Combivent Respimat Inhaler] LOVAstatin [Mevacor] 1 tab PO DAILY 10/20/18 10/20/18 Unknown History Oxycodone HCl/Acetaminophen 1 tab PO BID PRN 10/20/18 10/20/18 Unknown History [Oxycodone-Acetaminophen 10-325] Potassium Chloride 1 tab PO 4XDAY 10/20/18 10/20/18 Unknown History - History of Present Illness-Cardiac Nature of Presenting Problem: Patient is a 72 year old female who presents to the ED via EMS with palpitations, chest pain and shortness of breath that has been present for 11 days. Patient states she was seeing PCP and was informed her heart rate was elevated. States history of A fib. Denies fever and chills. Location: reports: central Quality of Pain: reports: sharp Severity in ED: mild Onset/Duration: other (11 days) Timing: still present Context/Activities at Onset: reports: light activity Modifying Factors: improves with: nothing Palpitation Quality: fast/pounding heart beat History of arrythmia: reports: A-Fib Associated Symptoms: reports: shortness of breath Similar Symptoms Previously?: Yes Recently Seen Here or By Another Healthcare Provider: Yes Review of Systems - Adult - REVIEW OF SYSTEMS - ADULT Constitutional: reports: no symptoms reported. denies: chills, fever, fatique Eyes: reports: no symptoms reported Ears, Nose, Mouth & Throat: reports: no symptoms reported Cardiovascular: reports: see HPI, chest pain, palpitations. denies: heart mu rmur Respiratory: reports: see HPI, shortness of breath. denies: cough, wheezing Gastrointestinal: reports: no symptoms reported Genitourinary: reports: no symptoms reported Musculoskeletal: reports: no symptoms reported Integumentary: reports: no symptoms reported Neurological: reports: no symptoms reported Psychiatric: reports: no symptoms reported Endocrine: reports: no symptoms reported Hematologic/Lymphatic: reports: no symptoms reported Allergic/Immunologic: reports: no symptoms reported All Other Systems: Reviewed and Negative Past History - Adult - PAST MEDICAL HISTORY-ADULT Review of Records: reports: Nursing Assessment Review, Medications Reviewed, Social history reviewed & non-contributory. Major Childhood Illnesses: reports: denies history Cardiovascular: reports: HTN Respiratory: reports: COPD Gastrointestinal: reports: cancer Obstetrical/Gynecological: reports: denies history Genitourinary: reports: denies history Musculoskeletal: reports: chronic pain Neurological: reports: denies history Psychiatric: reports: denies history Endocrine/Immune: reports: denies history Other Conditions: reports: denies history - PRIOR SURGERIES/PROCEDURES Surgical/Procedure History: reports: reviewed, not pertinent, hysterectomy - IMMUNIZATION STATUS Childhood Immunizations: See Nurse Assessment Flu Vaccine: See Nurse Assessment - FAMILY HISTORY Family History: reviewed, not pertinent - SOCIAL HISTORY Smoking: cigarettes (former) Substance Use: denies Physical Exam-General - PHYSICAL EXAM-ADULT Initial Vital Signs Reviewed: Yes - CONSTITUTIONAL General Appearance: alert, no apparent distress. negative: lethargic, slow to respond - EYES Eyes: PERRL/EOMI. negative: scleral icterus, sunken eyes - HEAD, EARS, NOSE, MOUTH & THROAT HENMT: moist mucous membranes. negative: angioedema, hearing deficit - NECK Neck: non-tender, full range of motion, normal inspection. negative: C-spine tenderness - RESPIRATORY Respiratory: chest non-tender, lungs clear, normal breath sounds. negative: crackles, rhonchi - CARDIOVASCULAR Cardiovascular: tachycardia, irregularly irregular. negative: JVD, systolic murmur - GASTROINTESTINAL (ABDOMEN) Abdominal Exam: normal bowel sounds, non tender, soft. negative: guarding, rebo und - MUSCULOSKELETAL Extremity: normal range of motion, non-tender, normal inspection. negative: deformity, erythema - SKIN Integumentary: normal color, normal turgor, warm/dry. negative: cyanosis, ecchymosis, erythema - NEUROLOGIC Neurologic: grossly normal. negative: aphasia, facial droop - PSYCHIATRIC Psych/Mental Status: normal mood/affect, oriented x 3. negative: anxious Progress - PLAN OF CARE/RESULTS Progress/Plan/Lab Results: Vital Signs - 8 hr 10/20/18 10:04 10/20/18 10:25 10/20/18 10:27 Pulse Rate 171 H 160 H 170 H Respiratory Rate 21 28 H 26 H Blood Pressure 59/44 70/57 50/35 O2 Sat by Pulse Oximetry 93 L 10/20/18 10:29 10/20/18 10:30 10/20/18 10:31 Pulse Rate 167 H 163 H 164 H Respiratory Rate 30 H 16 23 Blood Pressure 51/37 60/43 O2 Sat by Pulse Oximetry 10/20/18 10:33 10/20/18 10:35 10/20/18 10:37 Pulse Rate 162 H 159 H 154 H Respiratory Rate 22 23 18 Blood Pressure 71/46 68/48 O2 Sat by Pulse Oximetry 95 94 L 10/20/18 10:39 10/20/18 10:41 10/20/18 10:42 Pulse Rate 156 H 157 H 158 H Respiratory Rate 20 20 23 Blood Pressure 96/62 102/62 O2 Sat by Pulse Oximetry 94 L 95 94 L 10/20/18 10:43 10/20/18 10:45 10/20/18 10:47 Pulse Rate 159 H 159 H 101 H Respiratory Rate 15 22 26 H Blood Pressure 93/53 85/45 85/51 O2 Sat by Pulse Oximetry 93 L 95 95 10/20/18 10:48 10/20/18 10:50 10/20/18 10:51 Pulse Rate 101 H 100 H 101 H Respiratory Rate 22 24 25 H Blood Pressure 100/57 99/47 O2 Sat by Pulse Oximetry 95 94 L 94 L 10/20/18 10:53 10/20/18 10:55 10/20/18 10:57 Pulse Rate 102 H 104 H 104 H Respiratory Rate 24 27 H 32 H Blood Pressure 96/52 100/53 103/50 O2 Sat by Pulse Oximetry 93 L 92 L 92 L 10/20/18 10:59 10/20/18 11:00 10/20/18 11:01 Pulse Rate 106 H 107 H 106 H Respiratory Rate 17 27 H 26 H Blood Pressure 96/49 109/49 O2 Sat by Pulse Oximetry 93 L 93 L 93 L 10/20/18 11:03 10/20/18 11:05 10/20/18 11:07 Pulse Rate 107 H 108 H 107 H Respiratory Rate 21 25 H 29 H Blood Pressure 105/54 103/62 92/54 O2 Sat by Pulse Oximetry 93 L 94 L 93 L 10/20/18 11:09 10/20/18 11:11 10/20/18 11:12 Pulse Rate 109 H 112 H 112 H Respiratory Rate 16 21 22 Blood Pressure 106/44 111/69 O2 Sat by Pulse Oximetry 91 L 91 L 90 L 10/20/18 11:14 10/20/18 11:15 10/20/18 11:17 Pulse Rate 111 H 112 H 108 H Respiratory Rate 21 21 29 H Blood Pressure 107/57 117/61 99/57 O2 Sat by Pulse Oximetry 92 L 92 L 94 L 10/20/18 11:19 10/20/18 11:20 10/20/18 11:21 Pulse Rate 109 H 109 H 108 H Respiratory Rate 26 H 21 33 H Blood Pressure 104/71 93/55 O2 Sat by Pulse Oximetry 94 L 94 L 94 L 10/20/18 11:23 10/20/18 11:25 10/20/18 11:27 Pulse Rate 108 H 107 H 107 H Respiratory Rate 23 32 H 24 Blood Pressure 96/49 93/50 104/52 O2 Sat by Pulse Oximetry 95 96 97 10/20/18 11:29 10/20/18 11:30 10/20/18 11:31 Pulse Rate 107 H 107 H 108 H Respiratory Rate 23 23 21 Blood Pressure 87/52 89/54 O2 Sat by Pulse Oximetry 96 96 96 10/20/18 11:33 10/20/18 11:35 10/20/18 11:37 Pulse Rate 108 H 107 H 106 H Respiratory Rate 25 H 24 25 H Blood Pressure 73/51 85/48 98/47 O2 Sat by Pulse Oximetry 95 95 95 10/20/18 11:39 10/20/18 11:40 10/20/18 11:41 Pulse Rate 105 H 105 H 106 H Respiratory Rate 25 H 21 24 Blood Pressure 95/51 96/42 O2 Sat by Pulse Oximetry 96 96 96 10/20/18 11:43 10/20/18 11:45 10/20/18 11:47 Pulse Rate 106 H 105 H 105 H Respiratory Rate 26 H 24 22 Blood Pressure 97/45 95/55 97/51 O2 Sat by Pulse Oximetry 96 97 97 10/20/18 11:48 10/20/18 11:49 10/20/18 11:50 Pulse Rate 105 H 106 H 106 H Respiratory Rate 27 H 25 H 25 H Blood Pressure 94/50 O2 Sat by Pulse Oximetry 97 96 97 10/20/18 11:51 10/20/18 11:53 10/20/18 11:56 Pulse Rate 105 H 106 H 107 H Respiratory Rate 18 23 26 H Blood Pressure 51/37 113/46 100/47 O2 Sat by Pulse Oximetry 97 97 98 10/20/18 12:00 10/20/18 12:01 10/20/18 12:06 Pulse Rate 106 H 105 H 105 H Respiratory Rate 21 24 24 Blood Pressure 89/48 85/42 O2 Sat by Pulse Oximetry 97 97 97 10/20/18 12:10 10/20/18 12:11 10/20/18 12:16 Pulse Rate 106 H 102 H 105 H Respiratory Rate 14 17 14 Blood Pressure 92/57 82/53 O2 Sat by Pulse Oximetry 97 97 97 10/20/18 12:20 10/20/18 12:21 10/20/18 12:26 Pulse Rate 105 H 105 H 104 H Respiratory Rate 25 H 20 22 Blood Pressure 81/49 91/46 O2 Sat by Pulse Oximetry 97 97 98 10/20/18 12:30 10/20/18 12:31 10/20/18 12:36 Pulse Rate 104 H 104 H 103 H Respiratory Rate 21 21 22 Blood Pressure 93/49 97/47 O2 Sat by Pulse Oximetry 97 97 98 Laboratory Results - last 24 hr 10/20/18 10/20/18 10/20/18 12:00 12:00 12:00 WBC 27.87 H RBC 3.80 L Hgb 9.5 L Hct 33.3 L MCV 87.6 MCH 25.0 L MCHC 28.5 L RDW Std Deviation 21.4 H Plt Count 245 MPV 12.0 H Immature Gran % (Auto) 0.3 Neut % (Auto) 88.4 H Lymph % (Auto) 3.9 L [place] % (Auto) 7.2 Eos % (Auto) 0.0 Baso % (Auto) 0.2 Immature Gran # (Auto) 0.08 H Neut # (Auto) 24.64 H Lymph # (Auto) 1.08 L [place] # (Auto) 2.01 H Eos # (Auto) 0.01 Baso # (Auto) 0.05 PT INR PTT (Actin FS) Sodium 134 L Potassium 5.3 H Chloride 101 Carbon Dioxide 24 L Anion Gap 9 BUN 22 Creatinine 1.0 H Estimated GFR/1.73 m2 55 BUN/Creatinine Ratio 22 Glucose 129 H Calculated Osmolality 273 Calcium 7.7 L Total Bilirubin 0.41 AST 22 ALT 15 Alkaline Phosphatase 161 H Creatine Kinase 24 Troponin T Der-U-Iewzvkzgudr Pept 3466 H Total Protein 5.7 L Albumin 2.9 L Globulin 2.8 Albumin/Globulin Ratio 1.0 Plasma Lactate 10/20/18 10/20/18 10/20/18 12:00 12:00 12:00 WBC RBC Hgb Hct MCV MCH MCHC RDW Std Deviation Plt Count MPV Immature Gran % (Auto) Neut % (Auto) Lymph % (Auto) [place] % (Auto) Eos % (Auto) Baso % (Auto) Immature Gran # (Auto) Neut # (Auto) Lymph # (Auto) [place] # (Auto) Eos # (Auto) Baso # (Auto) PT 17.7 H INR 1.35 PTT (Actin FS) 21.1 L Sodium Potassium Chloride Carbon Dioxide Anion Gap BUN Creatinine Estimated GFR/1.73 m2 BUN/Creatinine Ratio Glucose Calculated Osmolality Calcium Total Bilirubin AST ALT Alkaline Phosphatase Creatine Kinase Troponin T < 0.010 [id number] Pept Total Protein Albumin Globulin Albumin/Globulin Ratio Plasma Lactate 1.0 Orders Category Date Time Status Cardiac Monitoring DIRECTED Care 10/20/18 10:09 Active IV Insertion ORDERED Care 10/20/18 10:57 Completed Notify MD of + Sepsis Screen NOW Care 10/20/18 10:57 Active Notify Physician As Ordered Care 10/20/18 10:57 Active Oxygen Therapy- ED Nursing DIRECTED Care 10/20/18 10:09 Active Restart Infusion If ORDERED Care 10/20/18 10:11 Active Saline Loc NOW Care 10/20/18 10:09 Active CHEST-1 VIEW [RAD] Stat Exams 10/20/18 10:09 Completed BLOOD CULTURE [BLDCUL] Stat Lab 10/20/18 12:07 Results CBC WITH ELECTRONIC DIFF [HEME] Stat Lab 10/20/18 12:00 Completed CK PROFILE [SP CHEM] Stat Lab 10/20/18 12:00 Completed COMPREHENSIVE METABOLIC PANEL [CHEM] Stat Lab 10/20/18 12:00 Completed LACTATE, PLASMA [CHEM] Lab 10/20/18 14:00 Uncollected LACTATE, PLASMA [CHEM] Lab 10/20/18 17:00 Uncollected LACTATE, PLASMA [CHEM] Q3H Lab 10/20/18 12:00 Completed PRO B-NATRIURETIC PEPTIDE Stat Lab 10/20/18 12:00 Completed PROTIME WITH INR [COAG] Stat Lab 10/20/18 12:00 Completed PTT [COAG] Stat Lab 10/20/18 12:00 Completed TROPONIN T Stat Lab 10/20/18 12:00 Completed URINALYSIS W/POSS RFLX CULT [URINALYSIS] Stat Lab 10/20/18 10:57 Uncollected 0.9% Sodium Chloride Inj [Ns] 1,000 ml Med 10/20/18 10:11 Discontinued IV 999 mls/hr 0.9% Sodium Chloride Inj [Ns] 1,000 ml Med 10/20/18 11:35 Discontinued IV 999 mls/hr Diltiazem 125 mg/D5w [Cardizem 125 mg/D5w] Med 10/20/18 10:15 Active 125 mg in 125 ml IV As Directed mls/hr Diltiazem [Cardizem] Med 10/20/18 10:11 Discontinued 20 mg IV NOW ONE Piperacillin/Tazobactam [Zosyn] 4.5 gm Med 10/20/18 12:31 Discontinued 0.9% Sodium Chloride Inj [Ns] 100 ml IV NOW Vancomycin 1 gm/Ns Med 10/20/18 12:31 Discontinued 1 gm in 250 ml IV NOW CP/SOB/Palp >45 yrs of Age Stat Oth 10/20/18 10:08 Ordered Oxygen Device Stat Oth 10/20/18 10:57 Active EKG [EKG] Stat Ther 10/20/18 10:09 Draft Result Diagrams: 10/20/18 12:00 10/20/18 12:00 - EKG 1 Time of EKG reading by physician:: 10:04 EKG Read and Signed by:: Jorge Sultana EKG Interpretation (*Must complete 3 of following elements*): Abnormal Rate: 171 Rhythm: atrial flutter with variable AV block [place]: normal QRS: other (low voltage) Comments: septal infarct, age undetermined 2 Time of EKG reading by physician:: 10:59 EKG Read and Signed by:: Jorge Sultana EKG Interpretation (*Must complete 3 of following elements*): Abnormal Rate: 107 Rhythm: sinus tachycardia [place]: normal [place] Interval: normal Comments: otherwise normal ECG - XRAY 1 XRAY Study: Chest Impression: See EMR Report ( CHEST-1 VIEW - 10/20/2018 INDICATION: SOB COMPARISON: 09/25/2018 FINDINGS: There has been significant improvement in the dense infiltrates all throughout the right lung. There is slight worsening in the hazy interstitial infiltrates in the left upper and lower lobes. No pneumothorax or large pleural effusion. Heart size is slightly enlarged. IMPRESSION: Mixed changes from prior, with overall some slight improvement. Bilateral indeterminate infiltrates. Cardiomegaly. Electronically signed by Klever Kumar 10/20/2018 11:15 AM 10/20/18 1115 Interpreting Physician: Klever Kumar MD Dictated Date/Time: 10/20/18 1114 cc: Jorge Sultana MD; Tuan Cates MD) - CONSULTS/PCP/HOSPITALIST Notification #1 *Consult/PCP/Hospitalist*: VERNON Alvarez for Hospitalist Time Discussed: 13:23 Reason/Comments: Dr. Sultana consulted with Kim about patient. Consult Disposition: Will see in ED, Admit Departure - Departure Date of Disposition Decision: 10/20/18 Time of Disposition Decision: 13:24 DIAGNOSIS: Atrial fibrillation with RVR, Pneumonia, Leukocytosis, Hypotension Disposition: ADMITTED INPATIENT 09 Certified Medical Emergency: Emergent Condition: Fair Referrals and Follow-Ups: Tuan Cates MD [Primary Care Provider] - - Critical Care Note This patient required my direct & personal management of CC.: Yes Total Time (mins): 42 Critical Care Statement: This patient required my direct personal management to treat or rule out processes, the absence of which, could potentiallly result in sudden, clinically significant life or limb threatening deterioration. Attestation - Physician/ RADHA Attestation The physician spent face to face time with patient:: Yes Advanced Practice Provider documentation review:: Supervising physician onsite and consulted in the evaluation and care of this patient. The physician did have a face to face encounter with the patient. This chart was documented by the indicated scribe, (Danae Duffy Scribe) and accurately reflects the services I performed and decisions made by me, Jorge Sultana MD, as attested by the provider's signature.
[2018-10-20] MEDS ORDERED: ZOFRAN IV PRN (14:10)
[2018-10-20] MEDS ORDERED: TYLENOL PO PRN (14:10)
[2018-10-20] MEDS ORDERED: VANCOMYCIN IV PER PHARMACY MISC SCH (14:15)
--- NOTE | 2018-10-20 14:40 | HISTORY AND PHYSICAL ---
HISTORY OF PRESENT ILLNESS: Ms. Parkinson presented on 10/20/2018. She reports that she was feeling fine, but then she was not really sure why she came to the emergency room. She had been eating fine, but for 3 or 4 days or longer, she has felt a little bit weak. She reports that her left wrist has titanium plates in it, and when she hurts in her left wrist, everything seems to fall apart. She has recently been cut down on her OxyContin from 30 to 15 mg twice a day. In the emergency room, they found her in atrial fibrillation with rapid rate, and appeared to have pneumonia clinically and radiographically. PAST MEDICAL HISTORY: 1. Prior admission back in 12/2017, underwent brief CRP for altered mental status, regained consciousness at home, and completely cleared by the time she came. 2. COPD with ongoing tobacco use. 3. Chronic hypoxemic respiratory failure. 4. Gastroesophageal reflux disease. 5. History of pulmonary embolism, is on chronic Eliquis use. 6. History of irregular heart rate. PAST SURGICAL HISTORY: 1. Multiple left wrist surgeries, titanium plates in place, and chronic pain from left wrist. 2. Partial hysterectomy. 3. Status post appendectomy. 4. Status post cholecystectomy. SOCIAL HISTORY: From previous admissions, ongoing tobacco use, occasional alcohol. I think she has lost her . FAMILY HISTORY: Positive for congestive heart failure, diabetes, arthritis. Does not know her biological father. REVIEW OF SYSTEMS: Constitutional: She does not report any weight gain or loss, fever or chills. HEENT: No change in visual or hearing acuity. Respiratory: No increased work of breathing or dyspnea. Cardiovascular: No chest pain or tachy palpitation. Gastrointestinal and Genitourinary: No gross hematuria or dysuria. Musculoskeletal and Neurologic: No significant issues. PHYSICAL EXAMINATION: VITAL SIGNS: Pulse 100, respirations 22, blood pressure 97/47. Weight 122 pounds, height 5 feet 8 inches. HEENT: Pupils are equal and round. LUNGS: Clear in all lung clay. CARDIOVASCULAR: Regular rhythm and rate without murmur or S3. ABDOMEN: Soft. SKIN: Warm and dry. IMAGING AND LABORATORY DATA: White count elevated at 27,870, hematocrit is 33, hemoglobin 9.5, platelet count 245,000. Sodium 134, potassium 5.3, chloride 101, BUN 22, creatinine 1.0. AST 22, ALT was 15. Troponin was less than 0.01. ProTime is 17, PTT is 21. Chest x-ray: Mixed changes, overall slight improvement from previous study, bilateral intermediate infiltrates. ASSESSMENT AND PLAN: 1. I am going to treat her for pneumonia. I strongly suspect aspiration. I think the OxyContin is playing a role in that. For now, we will continue the OxyContin at 15 mg twice a day. We are going to treat her for aspiration pneumonia, community-acquired pneumonia, so I think we can put her on Zosyn antibiotics 3.375 grams intravenously every 6 hours. Will get sputum cultures. Will get blood cultures and urine culture. 2. Underlying chronic obstructive pulmonary disease with chronic obstructive pulmonary disease exacerbation. 3. History of atrial fibrillation in the past, or at least elevated heart rate in the past, and she did come in with atrial fibrillation and rapid ventricular rate on presentation. 4. History of anxiety. 5. History of chronic pain. 6. History of ongoing tobacco use. 7. History of hypertension. 8. History of gastroesophageal reflux disease. Will check T4, TSH, B12, and folate, and will check another chest x-ray tomorrow. Will put her on bronchodilators, using DuoNebs, and will do that every 4 hours while awake, and will put her on a steroid inhaler. We can use Symbicort 80 and do 2 puffs twice a day. cc: Mark Albert MD
[2018-10-20] MEDS ORDERED: VANCOMYCIN 650 MG in NS 150 ML IV ONE (15:00)
[2018-10-20 15:01] LABS: FREE T4 0.9 ng/dL (0.93-1.70)
[2018-10-20] MEDS: XOPENEX NEB INH SCH ×2 (15:10→21:51)
[2018-10-20] MEDS: ATROVENT NEB INH SCH ×2 (15:11→21:51)
[2018-10-20 16:50] LABS: BILIRUBIN URINE NEGATIVE (NEGATIVE); BLOOD URINE NEGATIVE (NEGATIVE); COLOR YELLOW; GLUCOSE URINE NEGATIVE (NEGATIVE); KETONE URINE NEGATIVE (NEGATIVE); LEUKOCYTES URINE TRACE (NEGATIVE); NITRITE URINE NEGATIVE (NEGATIVE); PH URINE 5.5; PROTEIN URINE TRACE mg/dL (NEGATIVE); SP GRAVITY URINE 1.021; TURBIDITY URINE CLEAR (CLEAR); UR EPITHELIAL CELLS <10 /HPF (<10); URINE BACTERIA NEGATIVE /HPF; URINE RBC <10 /HPF (<10); URINE SOURCE CATH; URINE WBC <10 /HPF (<10); UROBILINOGEN URINE 2 mg/dL (NORMAL)
[2018-10-20] MEDS: NS 1,000 ML IV SCH (17:01)
[2018-10-20] MEDS: SYMBICORT 80/4.5 MICROGM INHALER INH SCH (19:30)
[2018-10-20] MEDS: ZOSYN 3.375 GM in NS 50 ML IV SCH (19:36)
[2018-10-20] MEDS: ELIQUIS PO SCH (20:34)
[2018-10-20] MEDS: PERCOCET-10 PO PRN (20:34)
[2018-10-20] MEDS: XANAX PO PRN (22:29)
[2018-10-21] MEDS: ZOSYN 3.375 GM in NS 50 ML IV SCH ×5 (00:01→17:59)
[2018-10-21] MEDS: XOPENEX NEB INH SCH ×4 (03:55→21:41)
[2018-10-21] MEDS: ATROVENT NEB INH SCH ×4 (03:55→21:41)
[2018-10-21] MEDS: NS 1,000 ML IV SCH ×2 (05:27→17:56)
[2018-10-21] MEDS: PROTONIX PO SCH ×2 (05:27→06:04)
[2018-10-21 06:12] LABS: INR 1.52; PROTIME 19.5 Seconds (11.0-16.0)
[2018-10-21 06:23] LABS: BASO# 0.03 X1000 (0.0-0.2); BASO% 0.3 % (0.0-0.8); EOS# 0.19 X1000 (0.0-0.7); EOS% 1.6 % (0.0-10.0); HEMATOCRIT 30.2 % (37.0-47.0); HEMOGLOBIN 8.7 g/dL (12.0-16.0); IMM GRAN# 0.02 X1000 (0.0-0.04); IMM GRAN% 0.2 % (0.0-0.5); LYMPH% 13.5 % (20.5-51.1); MCH 25.4 PG (27-31); MCHC 28.8 g/dL (33-37); MONO# 0.94 X1000 (0.11-0.59); MPV 11.6 FL (7.4-10.4); NEUT# 9.04 X1000 (1.4-6.5); NEUT% 76.4 % (42.2-75.2); PLT 182 X1000 (130-400); RBC 3.43 XMIL (4.2-5.4); RDW 21.5 % (11.5-14.5); WBC 11.82 X1000 (4.8-10.8)
[2018-10-21 06:24] LABS: PTT 38.5 Seconds (22.3-41.8)
[2018-10-21] MEDS: LEXAPRO PO SCH ×2 (06:52→09:24)
[2018-10-21] MEDS: CARDIZEM CD PO SCH ×2 (06:52→09:23)
[2018-10-21] MEDS: ELIQUIS PO SCH ×3 (06:53→20:11)
[2018-10-21 06:54] LABS: AGAP 8; ALB/GLOB RATIO 1.1; ALBUMIN 2.9 g/dL (3.5-5.0); ALKALINE PHOSPHATASE 132 U/L (32-104); BUN 19 mg/dL (8-22); CHLORIDE 107 mmol/L (98-107); CK TOTAL 18 U/L (24-173); COSMO 283; CREATININE 0.7 mg/dL (0.5-0.9); ESTIMATED GFR > 60; GLUCOSE 92 mg/dL (70-104); GOT 15 U/L (10-30); GPT 12 U/L (10-36); MAGNESIUM 2.2 mg/dL (1.5-2.7); POTASSIUM 4.6 mmol/L (3.5-5.1); SODIUM 141 mmol/L (136-145); TCO2 26 mmol/L (25-35); TOTAL BILIRUBIN 0.23 mg/dL (0.20-1.00); TOTAL PROTEIN 5.5 g/dL (6.3-8.3)
--- NOTE | 2018-10-21 06:56 | PROGRESS NOTE ---
DATE: 10/21/2018 SUBJECTIVE: Ms. Parkinson says she is doing better. She is breathing better. She is less sore. OBJECTIVE: She remains afebrile, temperature 98.8 degrees, pulse 155, respirations 19, blood pressure 103/53. Pupils are equal and round. Lungs are clear anterolateral. Breathing comfortably. Cardiovascular Examination: Irregular rhythm, irregular rate. She is still in atrial fibrillation but the rate is controlled. Abdomen is soft. Skin is warm and dry. Lab: Pending this morning. White count yesterday was elevated at 27,870, hematocrit 33, platelet count 245,000. Sodium 134, potassium 5.3, chloride 101, BUN 22, creatinine 1.0. She had a troponin of less than 0.01. ProBNP of 3466. Chest x-ray yesterday, mixed changes from prior x- ray, overall same. There was slight improvement of bilateral intermediate infiltrates. ASSESSMENT AND PLAN: 1. Treating for pneumonia, suspect possible aspiration pneumonia. She is on OxyContin for chronic pain. Continue Zosyn 3.375 g intravenous every 6 hours. We are going to try and obtain a sputum culture. Blood cultures are pending. Continue pulmonary toilet. 2. Underlying chronic obstructive pulmonary disease, chronic obstructive pulmonary disease exacerbation. 3. History of atrial fibrillation. She had rapid ventricular rate yesterday on presentation. Rate is controlled at the present time. 4. History of anxiety. 5. History of chronic pain in the left wrist. 6. History of ongoing tobacco use. 7. Hypertension. 8. History of gastroesophageal reflux. REVIEW OF HER ORDERS: I do not see any changes. She is getting vancomycin. She got one dose at 650 mg. Xanax 1 mg b.i.d., Eliquis 5 mg b.i.d., budesonide formoterol 2 puffs b.i.d., diltiazem CD 180 mg daily and was given some diltiazem IV yesterday, Lexapro 20 mg a day, ipratropium bromide 0.5 mg q.6 hours, Xopenex inhalations q.6 hours, Mevacor 20 mg q.p.m., normal saline at 85 mL an hour, oxycodone 10 mg one b.i.d. p.r.n. pain, Protonix 40 mg a day, and she is getting vancomycin scheduled at 1350 mg q.36 hours, Zosyn 3.375 g IV q.6 hours. cc: Mark Albert MD
[2018-10-21 07:27] LABS: LYMPHS 18 % (21-51); SEGS 76 % (42-75)
[2018-10-21] MEDS ORDERED: LANOXIN IV ONE (07:32)
--- NOTE | 2018-10-21 07:53 | EKG Report ---
Test Performed on : 10/21/2018 06:17:33 AM Test Reason : afib Blood Pressure : / mmHG Vent. Rate : 147 BPM Atrial Rate : 312 BPM P-R Int : 000 ms QRS Dur : 068 ms QT Int : 312 ms P-R-T Axes : 000 075 -85 degrees QTc Int : 488 ms Atrial flutter. with variable AV block. Nonspecific ST and T wave abnormality Abnormal ECG When compared with ECG of 21-OCT-2018 04:13, (Unconfirmed) Nonspecific T wave abnormality, improved in Lateral leads Confirmed by Roosevelt RAMIREZ, Mark Sommers ([id number]) on 10/21/2018 9:44:26 AM
[2018-10-21] MEDS: PERCOCET-10 PO PRN ×2 (08:01→17:54)
--- NOTE | 2018-10-21 08:49 | EKG Report ---
Test Performed on : 10/21/2018 04:13:45 AM Test Reason : afib with rvr Blood Pressure : / mmHG Vent. Rate : 150 BPM Atrial Rate : 306 BPM P-R Int : 000 ms QRS Dur : 060 ms QT Int : 190 ms P-R-T Axes : 000 070 262 degrees QTc Int : 300 ms Atrial flutter. with variable AV block. Marked ST abnormality, possible inferior subendocardial injury Abnormal ECG When compared with ECG of 20-OCT-2018 10:59, (Unconfirmed) Atrial flutter. has replaced Sinus rhythm. ST now depressed in Inferior leads ST now depressed in Anterolateral leads T wave inversion now evident in Inferior leads Nonspecific T wave abnormality now evident in Anterolateral leads Confirmed by Roosevelt RAMIREZ, Mark Sommers ([id number]) on 10/21/2018 9:44:19 AM
--- NOTE | 2018-10-21 09:09 | EKG Report ---
Test Performed on : 10/20/2018 10:59:05 AM Test Reason : ED. NO EKG ORDER FOR MUSE Blood Pressure : / mmHG Vent. Rate : 107 BPM Atrial Rate : 107 BPM P-R Int : 146 ms QRS Dur : 052 ms QT Int : 312 ms P-R-T Axes : 080 066 059 degrees QTc Int : 416 ms Sinus tachycardia. Otherwise normal ECG When compared with ECG of 20-OCT-2018 10:04, (Unconfirmed) Sinus rhythm. has replaced Atrial flutter. Vent. rate has decreased BY 64 BPM Unconfirmed Result
--- NOTE | 2018-10-21 09:13 | Diag Imaging Result Doc PS360 ---
EXAM: CHEST-2 VIEWS INDICATION: pna TECHNIQUE: 2 views COMPARISON: 10/20/2018 FINDINGS: Patchy infiltrate throughout the right lung is approximately stable. Mild interstitial infiltrate on the left has improved slightly. No new consolidation is identified. Cardiac silhouette is stable. IMPRESSION: Slight improvement on the left. Stable chest, otherwise. Electronically signed by Immanuel Marino 10/21/2018 9:11 AM
[2018-10-21] MEDS: CARDIZEM 125 MG/D5W 125 MG/125 ML IVPB IV SCH ×2 (09:24→22:19)
[2018-10-21] MEDS: SYMBICORT 80/4.5 MICROGM INHALER INH SCH ×2 (10:13→21:41)
[2018-10-21] MEDS: XANAX PO PRN (19:20)
[2018-10-21] MEDS: MEVACOR PO SCH (20:11)
[2018-10-21] MEDS ORDERED: NS IV ONE (23:00)
[2018-10-21] MEDS ORDERED: VANCOMYCIN IV ONE (23:00)
[2018-10-22] MEDS: ZOSYN 3.375 GM in NS 50 ML IV SCH ×4 (00:10→19:30)
[2018-10-22] MEDS ORDERED: VANCOMYCIN 1,350 MG in NS 250 ML IV SCH (03:00)
[2018-10-22] MEDS: XOPENEX NEB INH SCH ×4 (03:15→21:00)
[2018-10-22] MEDS: ATROVENT NEB INH SCH ×4 (03:15→21:00)
[2018-10-22] MEDS: PROTONIX PO SCH ×2 (05:35→06:10)
[2018-10-22] MEDS: NS 1,000 ML IV SCH ×2 (06:09→14:28)
[2018-10-22 06:20] LABS: BASO# 0.01 X1000 (0.0-0.2); BASO% 0.1 % (0.0-0.8); EOS# 0.22 X1000 (0.0-0.7); EOS% 2.2 % (0.0-10.0); HEMATOCRIT 26.3 % (37.0-47.0); HEMOGLOBIN 7.4 g/dL (12.0-16.0); IMM GRAN# 0.04 X1000 (0.0-0.04); IMM GRAN% 0.4 % (0.0-0.5); LYMPH# 1.16 X1000 (1.2-3.4); LYMPH% 11.4 % (20.5-51.1); MCH 25.2 PG (27-31); MCHC 28.1 g/dL (33-37); MCV 89.5 FL (81-99); MONO# 0.98 X1000 (0.11-0.59); MONO% 9.7 % (1.7-9.3); MPV 11.8 FL (7.4-10.4); NEUT# 7.73 X1000 (1.4-6.5); NEUT% 76.2 % (42.2-75.2); PLT 187 X1000 (130-400); RBC 2.94 XMIL (4.2-5.4); WBC 10.14 X1000 (4.8-10.8)
[2018-10-22 06:56] LABS: AGAP 5; BUN 14 mg/dL (8-22); CALCIUM 8.2 mg/dL (8.8-10.2); CHLORIDE 108 mmol/L (98-107); COSMO 281; CREATININE 0.7 mg/dL (0.5-0.9); ESTIMATED GFR > 60; GLUCOSE 122 mg/dL (70-104); POTASSIUM 4.4 mmol/L (3.5-5.1); SODIUM 140 mmol/L (136-145); TCO2 27 mmol/L (25-35)
--- NOTE | 2018-10-22 07:18 | Diag Imaging Result Doc PS360 ---
EXAM: CHEST-PORTABLE 10/22/2018 HISTORY: copd, pneumonia TECHNIQUE: AP portable at 0534 COMMENT: There is diffuse hazy opacity in both lungs particularly in the left lower lobe. There may be a left pleural effusion. This has worsened somewhat since 10/21/2018. IMPRESSION: Worsened pulmonary edema and/or pneumonia. Electronically signed by Brian Mas 10/22/2018 7:15 AM
[2018-10-22] MEDS: ELIQUIS PO SCH ×3 (08:43→21:16)
[2018-10-22] MEDS: LEXAPRO PO SCH (08:44)
[2018-10-22] MEDS: LANOXIN PO SCH (08:48)
[2018-10-22] MEDS: CARDIZEM CD PO SCH (08:48)
[2018-10-22] MEDS: LASIX IV SCH ×3 (08:49→21:15)
[2018-10-22] MEDS: XANAX PO PRN ×2 (08:57→19:31)
--- NOTE | 2018-10-22 08:57 | PROGRESS NOTE ---
DATE: 10/22/2018 SUBJECTIVE: Ms. Parkinson had a little wheezing this morning. Overall, she does feel better. OBJECTIVE: Temperature 98.7 degrees, pulse 90, respirations 14, blood pressure 117/56. Her pupils are equal. Lungs are clear except for expiratory wheezing throughout. Cardiovascular Examination: Regular rhythm and rate without murmur or S3. Abdomen is soft and nondistended. Skin is warm and dry. Blood pressure was 117/56 and heart rate is controlled in the 80s and 90s. Chest x-ray from this morning, worsened pulmonary edema versus pneumonia. She is coughing up a dark grayish sputum and it is thick. ASSESSMENT AND PLAN: 1. Treating for pneumonia, suspect aspiration pneumonia. She is on OxyContin for chronic pain. He is on Zosyn 3.375 g intravenous every 6 hours. We will see if we can obtain a sputum culture. I do not have any growth from blood cultures. She has some wheezing. Continue her bronchodilators, supplementary oxygen. 2. Underlying chronic obstructive pulmonary disease so chronic obstructive pulmonary disease exacerbation with pneumonia. 3. History of atrial fibrillation, ventricular rate is controlled. I would like to get her off the intravenous Cardizem so we will add oral Cardizem as needed if the heart rate gets above 120. 4. History of anxiety. 5. History of chronic pain in the left wrist. 6. Ongoing tobacco use. 7. Hypertension. 8. History of gastroesophageal reflux. REVIEW OF ORDERS: She is getting Xanax 1 mg p.o. b.i.d. p.r.n. She is getting Eliquis 5 mg p.o. b.i.d. for her underlying atrial fibrillation, budesonide formoterol 2 puffs b.i.d., Cardizem CD 180 mg daily. I think I will bump that up to 240 mg a day and see if we can get her off the IV Cardizem. Lexapro 20 mg a day, Mevacor 20 mg q.p.m. I am going to turn down the normal saline to 45 mL an hour. She is on Protonix 40 mg a day, vancomycin 1350 mg q.24 hours, Zosyn 3.375 g IV q.6, digoxin was given I think just 1 dose and I may add digoxin daily to help control rate, and give her one dose of Lasix this morning. cc: Mark Albert MD
[2018-10-22] MEDS: CARDIZEM PO PRN (17:08)
[2018-10-22] MEDS ORDERED: XOPENEX NEB INH ONE (17:08)
[2018-10-22] MEDS ORDERED: ATROVENT NEB INH ONE (17:09)
[2018-10-22] MEDS ORDERED: NS NEB INH SCH (17:15)
[2018-10-22] MEDS: PERCOCET-10 PO PRN ×2 (17:19→21:39)
[2018-10-22] MEDS: MEVACOR PO SCH ×2 (19:31→21:15)
[2018-10-22] MEDS: SYMBICORT 80/4.5 MICROGM INHALER INH SCH (21:00)
[2018-10-22] MEDS: VANCOMYCIN 1,350 MG in NS 250 ML IV SCH (21:39)
[2018-10-23] MEDS: ZOSYN 3.375 GM in NS 50 ML IV SCH ×4 (01:25→20:18)
[2018-10-23] MEDS: VANCOMYCIN 1,350 MG in NS 250 ML IV SCH (01:25)
[2018-10-23] MEDS: XOPENEX NEB INH SCH ×4 (03:30→22:47)
[2018-10-23] MEDS: ATROVENT NEB INH SCH ×4 (03:30→22:47)
[2018-10-23] MEDS: PROTONIX PO SCH (06:02)
[2018-10-23 06:27] LABS: AGAP 8; ALB/GLOB RATIO 0.8; ALBUMIN 2.6 g/dL (3.5-5.0); ALKALINE PHOSPHATASE 179 U/L (32-104); BUN 11 mg/dL (8-22); CALCIUM 8.5 mg/dL (8.8-10.2); CHLORIDE 103 mmol/L (98-107); COSMO 283; CREATININE 0.7 mg/dL (0.5-0.9); ESTIMATED GFR > 60; GLUCOSE 104 mg/dL (70-104); GOT 15 U/L (10-30); GPT 8 U/L (10-36); MAGNESIUM 1.6 mg/dL (1.5-2.7); POTASSIUM 3.8 mmol/L (3.5-5.1); SODIUM 142 mmol/L (136-145); TCO2 31 mmol/L (25-35); TOTAL BILIRUBIN 0.25 mg/dL (0.20-1.00); TOTAL PROTEIN 5.8 g/dL (6.3-8.3)
--- NOTE | 2018-10-23 07:13 | Diag Imaging Result Doc PS360 ---
EXAM: CHEST-PORTABLE 10/23/2018 HISTORY: pulmonary venous HTN TECHNIQUE: AP portable at 0536 COMMENT: There is a skin fold over the left hemithorax. There is blunting of the left costophrenic angle. There is ill-defined opacity bilaterally particularly in the right upper and lower lobes. Considering differences in inspiration this has not apparently changed significantly since 10/22/2018. IMPRESSION: Pulmonary edema and/or pneumonia. Left pleural effusion. Electronically signed by Brian Mas 10/23/2018 7:10 AM
--- NOTE | 2018-10-23 08:09 | PROGRESS NOTE ---
DATE: 10/23/2018 SUBJECTIVE: Ms. Parkinson was sleeping sound, breathing comfortably. No wheezing. She was snoring a little bit, easy to arouse. OBJECTIVE: Vital signs: Temperature 97.5 degrees, pulse 90, respirations 19, blood pressure 114/47. HEENT: Pupils are equal and round. No distended neck veins. Lungs: Clear anterolateral. Cardiovascular: Regular rhythm and rate without murmur or S3. Abdomen: Soft. Skin: Warm and dry. IMAGING: Chest x-ray from this morning. Pulmonary edema versus pneumonia, left pleural effusion. ASSESSMENT AND PLAN: 1. Treating for pneumonia, suspect aspiration pneumonia. Was on OxyContin for chronic pain. Getting Zosyn 3.375 g IV q.6 hours. Blood cultures, no growth at this point. Has had a little bronchospasm and wheezing. This is better this morning. Chest x-ray is about the same. 2. Chronic obstructive pulmonary disease with exacerbation. Suspect aspiration pneumonia. 3. Atrial fibrillation, ventricular rate controlled. She is on oral Cardizem only. Heart rate has stayed between 60 and 90. 4. History of anxiety. 5. Chronic pain in the left wrist. 6. Ongoing tobacco use. 7. Hypertension. 8. Gastroesophageal reflux. REVIEW OF HER ORDERS: We will keep her on the oxycodone, she takes 10 mg and she can take it twice a day p.r.n., that seems to be adequate for pain control. I am going to stop the vancomycin, continue the Zosyn. I think she will need another 48 hours of IV Zosyn. cc: Mark Albert MD
[2018-10-23] MEDS: LEXAPRO PO SCH (08:31)
[2018-10-23] MEDS: CARDIZEM CD PO SCH (08:31)
[2018-10-23] MEDS: LASIX IV SCH ×2 (08:31→20:18)
[2018-10-23] MEDS: ELIQUIS PO SCH ×2 (08:31→20:18)
[2018-10-23] MEDS: LANOXIN PO SCH (08:31)
[2018-10-23] MEDS: XANAX PO PRN ×2 (09:37→20:18)
[2018-10-23] MEDS: NS 1,000 ML IV SCH (10:41)
[2018-10-23] MEDS: SYMBICORT 80/4.5 MICROGM INHALER INH SCH ×2 (11:50→19:32)
[2018-10-23] MEDS: PERCOCET-10 PO PRN (12:01)
[2018-10-23] MEDS: MEVACOR PO SCH (20:18)
[2018-10-24] MEDS: PERCOCET-10 PO PRN ×2 (00:29→13:20)
[2018-10-24] MEDS: ZOSYN 3.375 GM in NS 50 ML IV SCH ×4 (02:24→20:20)
[2018-10-24] MEDS: XOPENEX NEB INH SCH ×4 (03:33→22:42)
[2018-10-24] MEDS: ATROVENT NEB INH SCH ×4 (03:33→22:42)
[2018-10-24] MEDS: PROTONIX PO SCH (06:46)
--- NOTE | 2018-10-24 07:19 | PROGRESS NOTE ---
DATE: 10/24/2018 Ms. Parkinson is sleeping, resting comfortably, breathing comfortably. OBJECTIVE: Vital Signs: Temp 98.1 degrees, pulse 69, respirations 15, blood pressure 110/59. HEENT: Pupils are equal, round, easy to arouse. Lungs: Are clear in all lung clay. Cardiovascular: Regular rate without murmur or S3. Abdomen: Was soft. Skin: Is warm and dry. Chest x-ray from yesterday, pulmonary edema and pneumonia. Left pleural effusion looks to be stable. ASSESSMENT AND PLAN: 1. Treating for pneumonia, suspect aspiration pneumonia, was on OxyContin for chronic pain. On Zosyn 3.375 g IV q.6 hours and she had some bronchospasm and wheezing, which seems to have improved. 2. Chronic obstructive pulmonary disease with exacerbation, suspect aspiration pneumonia. 3. Atrial fibrillation, ventricular rate controlled on p.o. Cardizem. 4. History of anxiety. 5. Chronic pain in the left wrist. 6. Ongoing tobacco use. 7. Hypertension. 8. Gastroesophageal reflux. REVIEW OF ORDERS: She is on Xanax 1 mg p.o. b.i.d. p.r.n. She is on Eliquis 5 mg b.i.d., budesonide formoterol 2 puffs b.i.d. digoxin started 250 mg daily, Cardizem 330 mg p.o. q.6 hours p.r.n., but she also once a day takes Cardizem CD 240 mg daily. Her Lexapro is at 20 mg a day, Lasix 40 mg IV q.12, ipratropium bromide 0.5 mg q.6 hours, Xopenex 1.25 mg inhalation q.6 hours, Mevacor 20 mg q.p.m., normal saline at 25 mL an hour, oxycodone 10 mg b.i.d. p.r.n., Protonix 40 mg a day and getting Zosyn 3.375 grams IV q.6 hours. cc: Mark Albert MD
[2018-10-24] MEDS: NS 1,000 ML IV SCH (08:41)
[2018-10-24] MEDS: LEXAPRO PO SCH (08:42)
[2018-10-24] MEDS: CARDIZEM CD PO SCH (08:42)
[2018-10-24] MEDS: ELIQUIS PO SCH ×2 (08:42→20:20)
[2018-10-24] MEDS: LASIX IV SCH ×2 (08:42→20:19)
[2018-10-24] MEDS: LANOXIN PO SCH (08:42)
[2018-10-24] MEDS: CARDIZEM PO PRN (10:20)
[2018-10-24] MEDS: SYMBICORT 80/4.5 MICROGM INHALER INH SCH ×3 (10:35→19:42)
[2018-10-24] MEDS ORDERED: CARDIZEM PO PRN (11:31)
[2018-10-24] MEDS: LOPRESSOR PO SCH ×2 (14:49→20:20)
[2018-10-24] MEDS: XANAX PO PRN (20:20)
[2018-10-24] MEDS: MEVACOR PO SCH (20:20)
[2018-10-25] MEDS: ZOSYN 3.375 GM in NS 50 ML IV SCH ×4 (03:17→20:57)
[2018-10-25] MEDS: LOPRESSOR PO SCH ×3 (04:52→20:58)
[2018-10-25] MEDS: ATROVENT NEB INH SCH ×4 (05:06→22:50)
[2018-10-25] MEDS: XOPENEX NEB INH SCH ×4 (05:07→22:50)
[2018-10-25] MEDS: PROTONIX PO SCH (06:25)
--- NOTE | 2018-10-25 07:36 | PROGRESS NOTE ---
DATE: 10/25/2018 SUBJECTIVE: Ms. Parkinson has converted back to sinus rhythm. We had started her on metoprolol yesterday as the rate was accelerating. She feels good. She wants to go home. I think she may be ready to go home tomorrow. She remains afebrile. OBJECTIVE: Temperature 98.0 degrees, pulse 70, respirations 14, blood pressure 96/40. Pupils are equal and round. Lungs are clear in all lung clay. Cardiovascular Examination: Regular rhythm and rate without murmur or S3. Abdomen is soft. Skin is warm and dry. Urine output 1000 mL. ASSESSMENT AND PLAN: 1. We are treating her for suspected aspiration pneumonia. She is on OxyContin for chronic pain and I think she subsequently has poor clearance and poor cough. She is on Zosyn 3.375 g intravenous every 6 hours. I am going to check a PA and lateral today, a chest x-ray, but clinically improving. 2. Chronic obstructive pulmonary disease with exacerbation, underlying aspiration pneumonia which is improving. 3. Atrial fibrillation with rapid ventricular rate. She converted back to sinus rhythm. She is on a beta ellen, metoprolol. 4. History of anxiety. 5. Chronic pain, left wrist. 6. Ongoing tobacco use. 7. Hypertension. 8. Gastroesophageal reflux. REVIEW OF ORDERS: She is on Lopressor 25 mg q.8 hours. She is on Xanax 1 mg b.i.d. p.r.n., Eliquis 5 mg b.i.d., budesonide formoterol 2 puffs b.i.d., Lanoxin 250 mcg p.o. daily, Cardizem 60 mg q.6 hours, diltiazem CD 240 mg a day, Lexapro 20 mg a day, Lasix 40 mg q.12 hours, ipratropium bromide 0.5 mg q.6 hours, Xopenex treatment 1.25 mg q.6 hours, Mevacor 20 mg q.p.m., normal saline just at 25 mL an hour, and her Zosyn 3.375 g IV q.6. We will check some more labs, CBC, the PA and lateral tomorrow. Hopefully, she can go home tomorrow. cc: Mark Albert MD
[2018-10-25] MEDS: LASIX IV SCH ×2 (08:45→20:58)
[2018-10-25] MEDS: LANOXIN PO SCH (08:46)
[2018-10-25] MEDS: CARDIZEM CD PO SCH (08:46)
[2018-10-25] MEDS: ELIQUIS PO SCH ×2 (08:46→20:58)
[2018-10-25] MEDS: LEXAPRO PO SCH (08:46)
[2018-10-25] MEDS: SYMBICORT 80/4.5 MICROGM INHALER INH SCH ×2 (10:47→19:23)
[2018-10-25] MEDS: PERCOCET-10 PO PRN (12:32)
[2018-10-25] MEDS: NS 1,000 ML IV SCH (15:02)
--- NOTE | 2018-10-25 15:02 | Diag Imaging Result Doc PS360 ---
EXAM: CHEST-2 VIEWS INDICATION: copd, aspiration pneumonia TECHNIQUE: 2 views COMPARISON: 10/23/2018 FINDINGS: The small left pleural effusion is stable. Ill-defined opacity throughout the right lung, most prominent at the right upper lobe is approximately stable given efforts is an technique. No new consolidation is identified. Cardiac silhouette is stable. IMPRESSION: Approximately stable chest. Electronically signed by Immanuel Marino 10/25/2018 2:59 PM
[2018-10-25] MEDS: XANAX PO PRN ×2 (15:03→20:58)
[2018-10-25] MEDS: MEVACOR PO SCH (20:58)
[2018-10-26] MEDS: ZOSYN 3.375 GM in NS 50 ML IV SCH ×2 (02:13→07:58)
[2018-10-26] MEDS: ATROVENT NEB INH SCH ×2 (03:46→10:16)
[2018-10-26] MEDS: XOPENEX NEB INH SCH ×2 (03:47→10:16)
[2018-10-26] MEDS: LOPRESSOR PO SCH (05:23)
[2018-10-26] MEDS: NS 1,000 ML IV SCH ×2 (05:26→08:01)
[2018-10-26] MEDS: PROTONIX PO SCH (06:01)
[2018-10-26 06:05] LABS: BASO# 0.02 X1000 (0.0-0.2); BASO% 0.3 % (0.0-0.8); EOS# 0.37 X1000 (0.0-0.7); HEMATOCRIT 31.1 % (37.0-47.0); IMM GRAN# 0.02 X1000 (0.0-0.04); IMM GRAN% 0.3 % (0.0-0.5); LYMPH# 1.35 X1000 (1.2-3.4); LYMPH% 21.8 % (20.5-51.1); MCH 25.1 PG (27-31); MCHC 28.9 g/dL (33-37); MCV 86.9 FL (81-99); MONO% 12.9 % (1.7-9.3); MPV 11.1 FL (7.4-10.4); NEUT# 3.62 X1000 (1.4-6.5); NEUT% 58.7 % (42.2-75.2); PLT 262 X1000 (130-400); RBC 3.58 XMIL (4.2-5.4); RDW 19.6 % (11.5-14.5); WBC 6.18 X1000 (4.8-10.8)
[2018-10-26 06:15] LABS: AGAP 8; BUN 13 mg/dL (8-22); CALCIUM 8.4 mg/dL (8.8-10.2); CHLORIDE 96 mmol/L (98-107); COSMO 283; CREATININE 0.8 mg/dL (0.5-0.9); ESTIMATED GFR > 60; GLUCOSE 99 mg/dL (70-104); MAGNESIUM 1.6 mg/dL (1.5-2.7); SODIUM 142 mmol/L (136-145); TCO2 38 mmol/L (25-35)
--- NOTE | 2018-10-26 07:30 | EKG Report ---
Test Performed on : 10/24/2018 11:02:26 AM Test Reason : elevated HR Blood Pressure : / mmHG Vent. Rate : 134 BPM Atrial Rate : 170 BPM P-R Int : 000 ms QRS Dur : 072 ms QT Int : 320 ms P-R-T Axes : 000 041 260 degrees QTc Int : 477 ms Atrial fibrillation. with rapid ventricular response. with premature ventricular or aberrantly conduc tanesha complexes. Nonspecific ST and T wave abnormality Abnormal ECG When compared with ECG of 21-OCT-2018 06:17, Atrial fibrillation. has replaced Atrial flutter. Nonspecific T wave abnormality has replaced inverted T waves in Inferior leads Confirmed by Roosevelt RAMIREZ, Mark Sommers ([id number]) on 10/27/2018 9:59:54 AM
[2018-10-26] MEDS: LASIX IV SCH (07:58)
[2018-10-26] MEDS: LEXAPRO PO SCH (07:59)
[2018-10-26] MEDS: CARDIZEM CD PO SCH (07:59)
[2018-10-26] MEDS: LANOXIN PO SCH (07:59)
[2018-10-26] MEDS: ELIQUIS PO SCH (07:59)
--- NOTE | 2018-10-26 09:26 | DISCHARGE SUMMARY ---
ADMISSION DATE: 10/20/2018 DISCHARGE DATE: 10/26/2018 HOSPITAL COURSE: She is followed by Dr. Taun Cates. This is a 72-year-old, who presented on 10/20/2018. She was feeling fine and then not sure otherwise. She was in the emergency room but apparently 3 or 4 days or longer, she had been weak and I think there was a little bit of confusion. She has a titanium plate in her left wrist that gives her quite a bit of pain, so she is on pain medication recently. They cut her down from OxyContin 30 to 15 mg twice a day. In the emergency room, found she was in atrial fibrillation with rapid rate. PAST MEDICAL HISTORY: 1. Prior admission back on 01/05/2018, underwent brief stay for altered mental status, regained consciousness at home, and completely cured by the time she came to the hospital at that time. 2. COPD, ongoing tobacco use. 3. Chronic hypoxemic respiratory failure. 4. Gastroesophageal reflux disease. 5. History of pulmonary embolism on Eliquis. 6. History of irregular heart rate in the past. PAST SURGICAL HISTORY: 1. Multiple left wrist surgeries, titanium plate placed, chronic pain from left wrist. 2. Partial hysterectomy. 3. Status post appendectomy. 4. Status post cholecystectomy. ADMISSION DIAGNOSIS: 1. She had some pneumonia, suspected some aspiration pneumonia and suspect related to the opioid pain medicine. She had been recently cut down to 15 mg OxyContin twice a day. We continued that in the hospital and treated her with Zosyn. She showed steady improvement radiographically and clinically. Bussey she was ready go home on 10/26/2018. 2. Underlying chronic obstructive pulmonary disease. She has oxygen at home, so we will continue that and had exacerbation with pneumonia. 3. History of atrial fibrillation in the past. This is not new. She converted back to sinus rhythm. Ventricular rate controlled. 4. History of anxiety. 5. History of chronic pain. 6. Ongoing tobacco use. 7. We counseled her on the importance of quitting tobacco. Will let her have some nicotine patches. 8. History of hypertension. 9. History of gastroesophageal reflux disease. We did do physical therapy. She is walking around and eating well. DISCHARGE MEDICATIONS: She will stay on her 1. Xanax 0.1 mg p.o. b.i.d. p.r.n. 2. Eliquis 5 mg b.i.d. 3. Symbicort 80/4.5 two puffs twice a day. 4. I started her on Lanoxin 250 mg a day. She will continue that. 5. Cardizem CD 240 mg a day. 6. Lexapro 20 mg a day. 7. Mevacor 20 mg at bedtime. 8. Lopressor 25 mg q.8 hours. 9. She has Percocet that she can take twice a day p.r.n. severe pain, and we had stopped the OxyContin. cc: Mark Albert MD
--- NOTE | 2018-10-26 09:28 | EKG Report ---
Test Performed on : 10/24/2018 5:42:53 PM Test Reason : rhythm change Blood Pressure : / mmHG Vent. Rate : 075 BPM Atrial Rate : 075 BPM P-R Int : 152 ms QRS Dur : 076 ms QT Int : 380 ms P-R-T Axes : 064 024 027 degrees QTc Int : 424 ms Normal sinus rhythm. Normal ECG When compared with ECG of 24-OCT-2018 11:02, (Unconfirmed) Sinus rhythm. has replaced Atrial fibrillation. Vent. rate has decreased BY [address] no longer depressed in Inferior leads ST no longer depressed in Lateral leads Confirmed by Roosevelt RAMIREZ, Mark Sommers ([id number]) on 10/27/2018 10:00:05 AM
[2018-10-26] MEDS: SYMBICORT 80/4.5 MICROGM INHALER INH SCH (10:16)
[2018-10-26] MEDS: XANAX PO PRN (10:20)
[2018-10-26 11:04] VITALS: BP 126/64
== END 2018-10-26 12:30 | disposition home health service (06) | DRG 178 ==
LOC: SUPCPDRO → ED 10:00 → EDIPHOLD 14:16 → 3S 16:29
PROVIDERS: ATTEND Emergency Medicine
CPT/HCPCS: 71010; 71020; 71045; 71046; 80048; 80053; 81001; 82550; 82607; 82746; 83605; 83735; 83880; 84439; 84443; 84484; 85025; 85610; 85730; 87040; 93005; 93010; 94640; 94761; 94799; 96361; 96365; 96366; 96368; 96375; 97162; 97530; 99285; 99291; A9270; J1160; J1940; J2543; J3370; J7030; J7050

== ENCOUNTER 2018-12-11 18:02 | Inpatient (IN) ==
[2018-12-11] MEDS ORDERED: NS 1,000 ML ONE (18:34)
[2018-12-11] MEDS ORDERED: NS 1,000 ML IV ONE (18:47)
[2018-12-11] MEDS ORDERED: SODIUM CHLORIDE 0.9% INJ ONE ×2 (18:48→18:49)
[2018-12-11] MEDS ORDERED: PROTONIX IV ONE (18:48)
[2018-12-11] MEDS ORDERED: DUONEB (A & A) INH ONE (18:49)
[2018-12-11] MEDS ORDERED: ROCEPHIN 1 GM in NS 50 ML IV ONE (18:49)
[2018-12-11] MEDS ORDERED: PEPCID IV ONE (18:49)
--- NOTE | 2018-12-11 19:14 | Diag Imaging Result Doc PS360 ---
EXAM: CHEST-PORTABLE 12/11/2018 HISTORY: GI BLEED TECHNIQUE: AP portable upright at 1906 COMMENT: The inspiration is less optimal than on 10/25/2018. The pleural effusion which was present previously on the left is no longer present. There are coarse opacities in both lung bases in the right upper lobe which were apparently at least in part present previously. The basilar opacities are somewhat worse but this may be at least in part due to the less optimal inspiration. IMPRESSION: Questionably worsened atelectasis or pneumonia in both lower lobes. Electronically signed by Brian Mas 12/11/2018 7:11 PM
[2018-12-11 19:15] LABS: ALLEN TEST YES; BLOOD TYPE ARTERIAL; HCO3-(ACT) 31.1 mmoll (20.0-26.0); O2(CT) 13.5 mL/dL (15.0-23.0); O2HB 93.5 % (95.0-99.0); PO2(98.6) 73 mmHg (60-100); SAMPLE BLOOD; SAO2 96.2 % (95.0-100.0); THB 10.2 g/dL (11.5-17.4); pH(98.6) 7.42 (7.35-7.45)
[2018-12-11 19:16] LABS: MODALITY CANNULA
[2018-12-11 19:17] LABS: PCO2(98.6) 52 mmHg (35-45)
[2018-12-11 19:17] LABS: BASO# 0.02 X1000 (0.0-0.2); BASO% 0.1 % (0.0-0.8); EOS# 0.06 X1000 (0.0-0.7); EOS% 0.3 % (0.0-10.0); HEMATOCRIT 34.6 % (37.0-47.0); HEMOGLOBIN 11.1 g/dL (12.0-16.0); IMM GRAN# 0.14 X1000 (0.0-0.04); IMM GRAN% 0.7 % (0.0-0.5); LYMPH# 1.32 X1000 (1.2-3.4); MCH 26.7 PG (27-31); MCHC 32.1 g/dL (33-37); MCV 83.2 FL (81-99); MONO% 5.9 % (1.7-9.3); NEUT# 16.09 X1000 (1.4-6.5); PLT 301 X1000 (130-400); RBC 4.16 XMIL (4.2-5.4); RDW 16.7 % (11.5-14.5); WBC 18.73 X1000 (4.8-10.8)
[2018-12-11 19:20] LABS: PROTIME 21.8 Seconds (11.0-16.0)
[2018-12-11] MEDS ORDERED: NEXIUM IV ONE (19:20)
[2018-12-11 19:21] LABS: INR 1.76; PTT 33.8 Seconds (22.3-41.8)
--- NOTE | 2018-12-11 19:23 | PROVIDER DOCUMENTATION ---
This chart was entered by Lizy Gregorio Scribe, acting as scribe for Prosper Orozco MD. HPI-Abdominal Pain/GI Problem - History of Present Illness-ABD Nature of Presenting Problems: Pt presents to ED via EMS. Pt reports having had hematemesis for the last 2 days (blood streaked emesis noted by EMS on scene). Pt has COPD and was reportedly no compliant w/ treatment, she was found w/ decreased o2 sts in the 80s, was given 02 and it now in 90s in ED. Pt sts that she has also been having LLQ pain for the last week. Pt is on eliquise for A-fib as well. Abdominal Pain Onset Location: reports: LLQ Pain Radiation: reports: no radiation Quality of Pain: reports: aching Severity in ED: reports: moderate Onset/Duration: reports: 2 days ago Timing: reports: still present Activities at Onset: reports: none Exposure to sick contacts?: No Modifying Factors: improves with: nothing Associated Symptoms: reports: vomiting. denies: chest pain, nausea Last BM: 2 days ago Dark Stools Present?: reports: none noticed Rectal Bleeding: reports: none Emesis Description: reports: red blood, blood-streaked Bruising or Bleeding Gums?: No Similar Symptoms Previously?: No Recently seen or treated by another doctor?: No <Prosper Orozco - Last Filed: 12/11/18 19:59> <Rock Farley - Last Filed: 12/11/18 20:38> - General Chief Complaint: GI Bleed Stated Complaint: VOMITING Time Seen by Provider: 12/11/18 18:27 Allergies/Adverse Reactions: Patient Allergies Allergy/AdvReac Type Severity Reaction Status Date / Time No Known Allergies Allergy Verified 12/11/18 18:30 Home Medications: Home Medication List Medication Instructions Recorded Confirmed Last Taken Type Escitalopram [Lexapro] 20 mg PO DAILY 01/12/18 10/20/18 Unknown History Magnesium Oxide 400 mg PO BID 01/12/18 10/20/18 Unknown History Pantoprazole [Protonix] 40 mg PO DAILY@0700 01/12/18 10/20/18 Unknown History Alprazolam 1 mg PO BID 09/06/18 10/20/18 Unknown History Apixaban [Eliquis] 5 mg PO BID #60 tab 09/12/18 10/20/18 Unknown Rx Diltiazem C.d. [Cardizem Cd] 180 mg PO DAILY #120 cap 09/12/18 10/20/18 Unknown Rx Fluticasone/Salmeterol [Advair 1 puff INH BID 10/20/18 10/20/18 Unknown History 250-50 Diskus] Ipratropium/Albuterol INH 1 puff INH BID 10/20/18 10/20/18 Unknown History [Combivent Respimat Inhaler] LOVAstatin [Mevacor] 1 tab PO DAILY 10/20/18 10/20/18 Unknown History Oxycodone HCl/Acetaminophen 1 tab PO BID PRN 10/20/18 10/20/18 Unknown History [Oxycodone-Acetaminophen 10-325] Potassium Chloride 1 tab PO 4XDAY 10/20/18 10/20/18 Unknown History Digoxin [Lanoxin] 250 microgm PO DAILY 30 Days #30 10/26/18 Unknown Rx tab Furosemide [Lasix] 40 mg PO DAILY 30 Days #30 tab 10/26/18 Unknown Rx Metoprolol [Lopressor] 25 mg PO Q8HR 30 Days #90 tab 10/26/18 Unknown Rx Review of Systems - Adult - REVIEW OF SYSTEMS - ADULT Constitutional: reports: no symptoms reported. denies: chills, fever Eyes: reports: no symptoms reported Ears, Nose, Mouth & Throat: reports: no symptoms reported Cardiovascular: reports: no symptoms reported. denies: chest pain Respiratory: reports: no symptoms reported Gastrointestinal: reports: abdominal pain, hematemesis, constipation, vomiting. denies: diarrhea Genitourinary: reports: no symptoms reported Musculoskeletal: reports: no symptoms reported Integumentary: reports: no symptoms reported Neurological: reports: no symptoms reported. denies: dizziness/vertigo, headache/migraines Psychiatric: reports: no symptoms reported Endocrine: reports: no symptoms reported Hematologic/Lymphatic: reports: no symptoms reported Allergic/Immunologic: reports: no symptoms reported All Other Systems: Reviewed and Negative <Prosper Orozco - Last Filed: 12/11/18 19:59> Past History - Adult - PAST MEDICAL HISTORY-ADULT Review of Records: reports: Old Records Reviewed, Nursing Assessment Review, Medications Reviewed, Social history reviewed & non-contributory. Major Childhood Illnesses: reports: denies history Cardiovascular: reports: HTN Respiratory: reports: COPD Gastrointestinal: reports: cancer Obstetrical/Gynecological: reports: denies history Genitourinary: reports: denies history Musculoskeletal: reports: chronic pain Neurological: reports: denies history Psychiatric: reports: denies history Endocrine/Immune: reports: denies history Other Conditions: reports: denies history - PRIOR SURGERIES/PROCEDURES Surgical/Procedure History: reports: reviewed, not pertinent, hysterectomy - IMMUNIZATION STATUS Childhood Immunizations: See Nurse Assessment Flu Vaccine: See Nurse Assessment - FAMILY HISTORY Family History: reviewed, not pertinent - SOCIAL HISTORY Smoking: quit less than 1 year Substance Use: none/never Alcohol Use Frequency: never Living Situation: family <Prosper Orozco - Last Filed: 12/11/18 19:59> Physical Exam-General - PHYSICAL EXAM-ADULT Initial Vital Signs Reviewed: Yes - CONSTITUTIONAL General Appearance: appears well, alert, mild distress, thin - EYES Eyes: PERRL/EOMI, pink conjunctivae - HEAD, EARS, NOSE, MOUTH & THROAT HENMT: normocephalic/atraumatic, moist mucous membranes, normal ENT inspection, TMs normal, pharynx normal - NECK Neck: non-tender, full range of motion, supple, normal inspection - RESPIRATORY Respiratory: lungs clear, decreased breath sounds, accessory muscle use, increased rate - CARDIOVASCULAR Cardiovascular: regular rate, rhythm - GASTROINTESTINAL (ABDOMEN) Abdominal Exam: normal bowel sounds, soft, tenderness (LLQ tenderness) - MUSCULOSKELETAL Extremity: normal range of motion, non-tender, normal gait, normal inspection - SKIN Integumentary: normal color, warm/dry - NEUROLOGIC Neurologic: grossly normal - PSYCHIATRIC Psych/Mental Status: normal mood/affect, normal thought content, normal thought process, oriented x 3 <Prosper Orozco - Last Filed: 12/11/18 19:59> Progress - PLAN OF CARE/RESULTS Progress/Plan/Lab Results: Vital Signs - 8 hr 12/11/18 18:20 Temperature 96.9 F L Pulse Rate 86 Respiratory Rate 22 Blood Pressure 87/41 Orders Category Date Time Status 0.9% Sodium Chloride Inj [Ns] 1,000 ml Med 12/11/18 18:34 Discontinued .ROUTE As directed 0.9% Sodium Chloride Inj [Ns] 1,000 ml Med 12/11/18 18:47 Active IV 999 mls/hr Result Diagrams: 12/11/18 18:28 - XRAY 1 XRAY: Bilateral XRAY Study: Chest Impression: Abnormal (EXAM: CHEST-PORTABLE 12/11/2018 HISTORY: GI BLEED TECHNIQUE: AP portable upright at 1906 COMMENT: The inspiration is less optimal than on 10/25/2018. The pleural effusion which was present previously on the left is no longer present. There are coarse opacities in both lung bases in the right upper lobe which were apparently at least in part present previously. The basilar opacities are somewhat worse but this may be at least in part due to the less optimal inspiration. IMPRESSION: Questionably worsened atelectasis or pneumonia in both lower lobes. Electronically signed by Brian Mas 12/11/2018 7:11 PM 12/11/18 191 Interpreting Physician: Brian Mas MD Dictated Date/Time: 12/11/181908 cc: Prosper Orozco MD; Tuan Cates MD) - CHANGE OF SHIFT REPORT (ED Provider) 1 Report Given and Care Transferred to:: DR Costa FARLEY Time of Transfer: 19:21 Items Pending: Labs, XRAY Results, CT/MRI Results, Physician Consult/Arrival <Prosper Orozco - Last Filed: 12/11/18 19:59> - PLAN OF CARE/RESULTS Progress/Plan/Lab Results: Vital Signs - 8 hr 12/11/18 18:20 12/11/18 19:03 Temperature 96.9 F L Pulse Rate 86 82 Respiratory Rate 22 16 Blood Pressure 87/41 O2 Sat by Pulse Oximetry 97 Laboratory Results - last 24 hr 12/11/18 12/11/18 12/11/18 18:28 18:28 18:28 WBC 18.73 H RBC 4.16 L Hgb 11.1 L Hct 34.6 L MCV 83.2 MCH 26.7 L MCHC 32.1 L RDW Std Deviation 16.7 H Plt Count 301 MPV 12.0 H Immature Gran % (Auto) 0.7 H Neut % (Auto) 86.0 H Lymph % (Auto) 7.0 L Cross % (Auto) 5.9 Eos % (Auto) 0.3 Baso % (Auto) 0.1 Immature Gran # (Auto) 0.14 H Neut # (Auto) 16.09 H Lymph # (Auto) 1.32 Cross # (Auto) 1.10 H Eos # (Auto) 0.06 Baso # (Auto) 0.02 PT INR PTT (Actin FS) Specimen Type Sample Site pH pCO2 pO2 HCO3 Base Excess Oxyhemoglobin ABG O2 Sat (Calculated) ABG O2 Saturation ABG Carboxyhemoglobin ABG Methemoglobin Mark Test A-a O2 Difference Total Hemoglobin Lactate Liter Flow Blood Gas Modality FiO2 % Magnesium 2.7 Troponin T < 0.010 Blood Type Antibody Screen Crossmatch 12/11/18 12/11/18 12/11/18 18:28 18:45 19:01 WBC RBC Hgb Hct MCV MCH MCHC RDW Std Deviation Plt Count MPV Immature Gran % (Auto) Neut % (Auto) Lymph % (Auto) Cross % (Auto) Eos % (Auto) Baso % (Auto) Immature Gran # (Auto) Neut # (Auto) Lymph # (Auto) Cross # (Auto) Eos # (Auto) Baso # (Auto) PT 21.8 H INR 1.76 PTT (Actin FS) 33.8 Specimen Type ARTERIAL Sample Site R BRACHIAL pH 7.42 pCO2 52 H* pO2 73 HCO3 31.1 H Base Excess 8.0 H Oxyhemoglobin 93.5 L ABG O2 Sat (Calculated) 13.5 L ABG O2 Saturation 96.2 ABG Carboxyhemoglobin 1.70 ABG Methemoglobin 1.0 Mark Test YES A-a O2 Difference 119.0 Total Hemoglobin 10.2 L Lactate 1.10 Liter Flow 4.0 Blood Gas Modality CANNULA FiO2 % 36.0 Magnesium Troponin T Blood Type O POSITIVE Antibody Screen NEGATIVE Crossmatch See Detail Orders Category Date Time Status Cardiac Monitoring DIRECTED Care 12/11/18 18:44 Active Saline Loc NOW Care 12/11/18 18:44 Active Transfuse .Give-Transfuse Care 12/11/18 18:50 Active NPO Diet 12/11/18 18:44 Active CHEST-PORTABLE [RAD] Stat Exams 12/11/18 18:46 Completed ABG [RESP] Routine Lab 12/11/18 18:45 Completed BLOOD CULTURE [BLDCUL] Stat Lab 12/11/18 18:45 Ordered CBC WITH ELECTRONIC DIFF [HEME] Stat Lab 12/11/18 18:28 Completed MAGNESIUM [CHEM] Stat Lab 12/11/18 18:28 Completed PRBC [LRPC (RED CELLS)] [BBK] Stat Lab 12/11/18 19:01 Results PROTIME WITH INR [COAG] Stat Lab 12/11/18 18:28 Completed PTT [COAG] Stat Lab 12/11/18 18:28 Completed TROPONIN T Stat Lab 12/11/18 18:28 Completed TYPE & SCREEN [BBK] Stat Lab 12/11/18 19:01 Results URINALYSIS W/POSS RFLX CULT [URINALYSIS] Stat Lab 12/11/18 18:46 Uncollected URINE DRUG SCREEN Stat Lab 12/11/18 18:46 Uncollected 0.9% Sodium Chloride Inj [Ns] 1,000 ml Med 12/11/18 18:34 Discontinued .ROUTE As directed 0.9% Sodium Chloride Inj [Ns] 1,000 ml Med 12/11/18 18:47 Discontinued IV 999 mls/hr Albuterol 2.5MG/Ipratrop 0.5MG [Duoneb (A & A)] Med 12/11/18 18:49 Discontinued 3 ml INH NOW ONE CefTRIAXONE [Rocephin] 1 gm Med 12/11/18 18:49 Discontinued 0.9% Sodium Chloride Inj [Ns] 50 ml IV NOW Esomeprazole [Nexium] Med 12/11/18 19:20 Discontinued 40 mg IV NOW ONE Famotidine [Pepcid] Med 12/11/18 18:49 Discontinued 20 mg IV NOW ONE Sodium Chloride 0.9% Med 12/11/18 18:48 Discontinued 10 ml INJ NOW ONE Sodium Chloride 0.9% Med 12/11/18 18:49 Discontinued 5 - 10 ml INJ NOW ONE Aerosol Treatments Routine Oth 12/11/18 18:50 Completed Aerosol Treatments Stat Oth 12/11/18 18:50 Completed EKG [EKG] Stat Ther 12/11/18 18:44 Ordered Pt signed out to me by Dr. Orozco, pt has GI bleed, will admit for GI consult and scope Result Diagrams: 12/11/18 18:28 <Rock Farley - Last Filed: 12/11/18 20:38> Departure <Prosper Orozco - Last Filed: 12/11/18 19:59> - Departure Date of Disposition Decision: 12/11/18 Time of Disposition Decision: 20:38 Certified Medical Emergency: Emergent - Critical Care Note This patient required my direct & personal management of CC.: No <Rock Farley - Last Filed: 12/11/18 20:38> - Departure DIAGNOSIS: GI bleed Qualifiers: GI bleed type/associated pathology: unspecified gastrointestinal hemorrhage type Qualified Code(s): K92.2 - Gastrointestinal hemorrhage, unspecified Disposition: ADMITTED INPATIENT 09 Condition: Stable Referrals and Follow-Ups: Tuan Cates MD [Primary Care Provider] - Attestation - Physician/ RADHA Attestation Patient care was provided by Advanced Practice Provider:: No The physician spent face to face time with patient:: Yes Advanced Practice Provider documentation review:: Supervising physician onsite and consulted in the evaluation and care of this patient. The physician did have a face to face encounter with the patient. <Prosper Orozco - Last Filed: 12/11/18 19:59> This chart was documented by the indicated scribe, (Lizy Gregorio, Scribe) and accurately reflects the services I performed and decisions made by me, Prosper Orozco MD, as attested by the provider's signature.
--- NOTE | 2018-12-11 20:53 | EKG Report ---
Test Performed on : 12/11/2018 8:31:01 PM Test Reason : GI BLEED Blood Pressure : / mmHG Vent. Rate : 084 BPM Atrial Rate : 084 BPM P-R Int : 144 ms QRS Dur : 060 ms QT Int : 288 ms P-R-T Axes : 074 030 250 degrees QTc Int : 340 ms Normal sinus rhythm. Possible Left atrial enlargement Septal infarct , age undetermined ST & T wave abnormality, consider inferior ischemia ST & T wave abnormality, consider anterolateral ischemia Abnormal ECG When compared with ECG of 24-OCT-2018 17:42, Septal infarct is now present T wave inversion now evident in Anterolateral leads QT has shortened Unconfirmed Result
--- NOTE | 2018-12-11 22:17 | HISTORY AND PHYSICAL ---
PRIMARY CARE PHYSICIAN: Dr. Cates. CHIEF COMPLAINT: Throwing up blood for the past 2 days. HISTORY OF PRESENTING ILLNESS: A 72-year-old female with a history of COPD on home oxygen, pulmonary embolism, atrial fibrillation, hypertension, hyperlipidemia and colon cancer presented to emergency department with 2 days history of throwing up blood. She stated there was some food material and it was blood tinged. She was seen in the ER. Due to her presenting symptoms, it was thought that she would need admission for further management. At the time of my examination, she denied any headache, fever, chills, chest pain, shortness of breath but complained of throwing up blood. PAST MEDICAL HISTORY: Includes COPD, pulmonary embolism, atrial fibrillation, hypertension, hyperlipidemia, colon cancer. PAST SURGICAL HISTORY: Appendectomy, cholecystectomy, left wrist surgery, hysterectomy, back surgery, cataract surgery. ALLERGIES: No known drug allergies. CURRENT MEDICATIONS: Alprazolam 1 mg p.o. b.i.d., Eliquis 5 mg p.o. b.i.d., digoxin 250 mcg p.o. daily, diltiazem CD 180 mg p.o. daily, Lexapro 20 mg p.o. daily, furosemide 40 mg p.o. daily, lovastatin 20 mg 1 p.o. daily, metoprolol 25 mg p.o. t.i.d., oxycodone or Percocet 10/325 one p.o. b.i.d., pantoprazole 40 mg p.o. daily. SOCIAL HISTORY: She is a former smoker she states quit about a year ago. Denies any history alcohol or illicit drug use. FAMILY HISTORY: No history of coronary disease. REVIEW OF SYSTEMS: Fourteen point review of systems is as in HPI. Other systems negative. PHYSICAL EXAMINATION: GENERAL: Cooperative, friendly female she is resting comfortably now. VITAL SIGNS: Temperature 96.9 degrees, pulse 86, respirations 22, blood pressure 87/41. HEENT: Atraumatic, normocephalic. Extraocular movements intact. PERRLA. NECK: No masses. CHEST: Clear to auscultation. CARDIOVASCULAR: Regular rate and rhythm. ABDOMEN: Soft. Positive bowel sounds. EXTREMITIES: No edema. NEUROLOGIC: She is awake, alert, oriented x3. : No bladder distention. SKIN: Warm. LABORATORY STUDIES: WBCs 18.73, hemoglobin 11.1, hematocrit 34.6, platelets 301,000. Magnesium is 2.7. Troponin 0.010. Chest x-ray shows atelectasis. ASSESSMENT: This is a 72-year-old female with a history of chronic obstructive pulmonary disease, pulmonary embolism, atrial fibrillation, hyperlipidemia and colon cancer who had presented to emergency department with 2 days history of throwing up blood. She was evaluated in the emergency department and she will be admitted for further evaluation and management. 1. Suspected upper gastrointestinal bleed. 2. Leukocytosis. 3. History of atrial fibrillation and pulmonary embolism on anticoagulation. 4. Chronic obstructive pulmonary disease. 5. Hypertension. PLAN: 1. We will admit patient to medical floor with telemetry. 2. We will keep patient NPO. 3. We will consult Gastroenterology. 4. Continue with IV Nexium. 5. Continue monitor white count. 6. Will hold all anticoagulation. 7. Continue with DuoNeb. 8. We will monitor blood pressure, resume antihypertensive agent. 9. Will continue to follow and reassess make further recommendation based on patient's clinical course. cc: Torey Pagan MD
[2018-12-11] MEDS ORDERED: ROCEPHIN 1 GM in NS 50 ML IV SCH (22:41)
[2018-12-11] MEDS: NS 1,000 ML IV SCH (23:51)
[2018-12-12] MEDS: DUONEB (A & A) INH PRN ×2 (00:03→07:42)
[2018-12-12] MEDS: MORPHINE IV PRN ×4 (00:36→23:57)
[2018-12-12] MEDS: ZOFRAN IV PRN (00:36)
[2018-12-12 01:35] LABS: URINE SOURCE CLEAN CATCH
[2018-12-12 01:36] LABS: BILIRUBIN URINE NEGATIVE (NEGATIVE); BLOOD URINE NEGATIVE (NEGATIVE); COLOR YELLOW; GLUCOSE URINE NEGATIVE (NEGATIVE); KETONE URINE NEGATIVE (NEGATIVE); LEUKOCYTES URINE NEGATIVE (NEGATIVE); NITRITE URINE NEGATIVE (NEGATIVE); PH URINE 5.5; PROTEIN URINE 30 mg/dL (NEGATIVE); SP GRAVITY URINE 1.018; TURBIDITY URINE CLEAR (CLEAR); UROBILINOGEN URINE NORMAL (NORMAL)
[2018-12-12 01:37] LABS: UR EPITHELIAL CELLS <10 /HPF (<10); URINE BACTERIA NEGATIVE /HPF; URINE RBC <10 /HPF (<10); URINE WBC <10 /HPF (<10)
[2018-12-12 02:18] LABS: UR AMPHETAMINES QUAL NONE DETECTED (NONE DETECT); UR BARBITUATES QUAL NONE DETECTED (NONE DETECT); UR BENZODIAZEPIN QUAL PRESUMPTIVE POSITIVE (NONE DETECT); UR CANNABINOIDS QUAL NONE DETECTED (NONE DETECT); UR COCAINE QUAL NONE DETECTED (NONE DETECT); UR METHADONE QUAL NONE DETECTED (NONE DETECT); UR OPIATES QUAL NONE DETECTED (NONE DETECT); UR OXYCODONE QUAL PRESUMPTIVE POSITIVE (NONE DETECT); UR PCP QUAL NONE DETECTED (NONE DETECT)
[2018-12-12] MEDS: ATIVAN IV PRN (03:00)
[2018-12-12 07:11] LABS: BASO# 0.01 X1000 (0.0-0.2); BASO% 0.1 % (0.0-0.8); EOS# 0.06 X1000 (0.0-0.7); EOS% 0.4 % (0.0-10.0); HEMATOCRIT 40.4 % (37.0-47.0); HEMOGLOBIN 13.1 g/dL (12.0-16.0); IMM GRAN# 0.04 X1000 (0.0-0.04); IMM GRAN% 0.3 % (0.0-0.5); LYMPH# 1.19 X1000 (1.2-3.4); LYMPH% 7.8 % (20.5-51.1); MCH 27.2 PG (27-31); MCHC 32.4 g/dL (33-37); MCV 83.8 FL (81-99); MONO# 1.04 X1000 (0.11-0.59); MONO% 6.9 % (1.7-9.3); MPV 11.5 FL (7.4-10.4); NEUT# 12.84 X1000 (1.4-6.5); NEUT% 84.5 % (42.2-75.2); PLT 223 X1000 (130-400); RBC 4.82 XMIL (4.2-5.4); RDW 15.9 % (11.5-14.5); WBC 15.18 X1000 (4.8-10.8)
[2018-12-12] MEDS ORDERED: PNEUMOVAX 23 IM ONE (07:21)
[2018-12-12 07:32] LABS: CALCIUM 8.5 mg/dL (8.8-10.2); CREATININE 1.2 mg/dL (0.5-0.9)
[2018-12-12 08:31] LABS: BASO# 0.03 X1000 (0.0-0.2); BASO% 0.2 % (0.0-0.8); HEMATOCRIT 39.9 % (37.0-47.0); HEMOGLOBIN 13.3 g/dL (12.0-16.0); IMM GRAN# 0.06 X1000 (0.0-0.04); IMM GRAN% 0.4 % (0.0-0.5); LYMPH# 1.62 X1000 (1.2-3.4); MCH 27.8 PG (27-31); MCHC 33.3 g/dL (33-37); MCV 83.5 FL (81-99); MONO# 1.24 X1000 (0.11-0.59); MONO% 7.6 % (1.7-9.3); MPV 11.4 FL (7.4-10.4); NEUT% 81.8 % (42.2-75.2); PLT 232 X1000 (130-400); RBC 4.78 XMIL (4.2-5.4); RDW 15.8 % (11.5-14.5); WBC 16.25 X1000 (4.8-10.8)
--- NOTE | 2018-12-12 08:31 | Diag Imaging Result Doc PS360 ---
CT THORAX W/O CONTRAST - 12/12/2018 INDICATION: pneumonia vs atelectasis. ? mass. COMPARISON: 09/23/2018, 12/11/2018 FINDINGS: The pleural effusion has resolved. There has been significant improvement in the dense multifocal nodular infiltrates in the right upper lobe. There has been significant worsening in the dense nodular infiltrates in the lower lobes bilaterally, and the right middle lobe. The lingula is unaffected. There is severe COPD. There is some mucous plugging of segmental airways in the right lower lobe. Other airways are all clear. There are patchy hazy interstitial infiltrates bilaterally as well that has clearly worsened since prior. Bones are intact. IMPRESSION: Mixed changes from prior. Overall mild improvement. Unusual bilateral infiltrates. Severe COPD. Mild mucous plugging of segmental bronchi. This exam was performed using automated exposure control, adjustment of mA or kV according to patient size, and/or use of iterative reconstruction technique Electronically signed by Klever Kumar 12/12/2018 8:28 AM
[2018-12-12] MEDS ORDERED: ZITHROMAX 500 MG/NS 500 MG/250 ML IVPB IV SCH (09:00)
[2018-12-12] MEDS ORDERED: VANCOMYCIN IV PER PHARMACY MISC SCH (11:30)
[2018-12-12] MEDS: NS 1,000 ML IV SCH (13:00)
--- NOTE | 2018-12-12 13:42 | GASTROENTEROLOGY CONSULTATION ---
DATE: 12/12/2018 REASON FOR CONSULTATION: Hematemesis. HISTORY OF PRESENT ILLNESS: Ms Malia Parkinson is a 72-year-old woman with past medical history of hypertension, atrial fibrillation, prior PE, COPD, hyperlipidemia, history of colon cancer status post chemotherapy, GERD, on Eliquis, who presents with acute onset of hematemesis with dark red blood that occurred prior to presenting to the ER yesterday. She says over the last 3 days she has been having constant sharp and severe left lower quadrant pain that radiates diffusely. She has not had any diarrhea or constipation. No bowel movement over this period. Her pain is worse with eating and movement. She has been avoiding p.o. intake. She also reports some nausea. She denies any retching or vomiting prior to her episode of hematemesis. She describes vomiting about a glass full of blood. No chest pain, shortness of breath, diarrhea, dizziness or headache. She denies any history of similar symptoms in the past. She reports having a fever to 102 at home with associated chills. No sweats. She is on medication for GERD and denies dysphagia. REVIEW OF SYSTEMS: As per HPI, otherwise 12 point review of systems is negative. However, she does report having some weight loss over the last 2 years attributed to having her teeth pulled. Her weight is now 116 from 146 two years ago. Her last EGD was 2 to 3 years ago. She reports having a colonoscopy 20 years ago. PAST MEDICAL HISTORY: As per HPI. PAST SURGICAL HISTORY: Multiple right wrist surgeries, partial hysterectomy, cholecystectomy, appendectomy. SOCIAL HISTORY: She is a prior smoker, quit 1 year ago. No alcohol or drug use. FAMILY HISTORY: No family history of GI malignancies. ALLERGIES: No known drug allergies. HOME MEDICATIONS: Include alprazolam, Eliquis, digoxin, diltiazem, Lexapro, furosemide, lovastatin, metoprolol, oxycodone or Percocet, pantoprazole. PHYSICAL EXAMINATION: Vital Signs: Temperature is 98.6 degrees, heart rate is 112, respiratory rate 18, blood pressure 121/92, O2 saturation is 94% on 3 L nasal cannula. General: The patient is awake, alert, oriented, no acute distress. HEENT: Sclerae anicteric. Moist mucous membranes. Extraocular motor intact. Neck: Supple. No JVD or lymphadenopathy. Cardiac: Irregular. No murmurs. Lungs: Clear to auscultation bilaterally. No wheezing. Abdomen: Soft, tender to palpation in the left lower quadrant with voluntary guarding. No rebound. Nondistended. Bowel sounds are present. Extremities: No clubbing, cyanosis, or edema. Neurologic: Nonfocal. LABS: White count of 16.2 from 18.7 yesterday, hemoglobin is 13.3 from 11.1, platelets of 232,000. INR is 1.76 yesterday. ABG, pH is 7.4, pCO2 is 52, PO2 73. Sodium 138, potassium 4.0, chloride 98, bicarb 30, BUN 61, creatinine of 1.2, glucose of 110, calcium 8.5. Troponin negative x1. Magnesium 2.7. UA shows protein. U-tox positive for oxycodone and benzodiazepines which she takes. IMAGING: Chest x-ray shows questionable worsening atelectasis or pneumonia in both lower lobes. CT of the chest shows mix changes from prior. Overall mild improvement. Unusual bilateral infiltrate, severe COPD, mild mucous plugging of segmental bronchi. Blood cultures x2 are pending. ASSESSMENT/PLANS: Ms Malia Parkinson is a 72-year-old woman with past medical history of pulmonary embolism, atrial fibrillation on Eliquis, history of colon cancer status post chemotherapy, who presents with several days of left lower quadrant pain and hematemesis. On presentation she was found to have some relative hypotension and was given 2 units of packed red blood cells with repeat hemoglobin 13.3 from 11.1. Her INR is 1.76. Her platelets were within normal limits. She is clinically stable currently. Her exam is notable for some exquisite left lower quadrant tenderness with voluntary guarding. Labs are notable for hemoglobin 16.25 from 18.[address] shows some bilateral infiltrates in the lower lung bases and severe chronic obstructive pulmonary disease concerning for possible pneumonia. No abdominal imaging. She is currently n.p.o. and on antibiotics with ceftriaxone and azithromycin. She is on analgesics and a proton pump inhibitor 40 mg IV b.i.d. I will order a CT of the abdomen and pelvis with IV contrast to assess for diverticulitis versus I guess recurrent colon cancer. We will plan for diagnostic EGD today. Further recommendations post endoscopy and CT scan. # Hematemesis # LLQ pain # Hypotension # Pneumonia Thank you for this consult. We will follow with you. Please call with any questions or concerns. [id number]
[2018-12-12] MEDS: MAXIPIME 2 GM in NS 100 ML IV SCH (13:45)
--- NOTE | 2018-12-12 13:45 | Diag Imaging Result Doc PS360 ---
CT ABD/PELVIS W/IV CONT ONLY - 12/12/2018 INDICATION: LLQ pain r/o diverticulitis, GI pathology COMPARISON: None FINDINGS: There is significant wall thickening and surrounding inflammation of the transverse colon, splenic flexure, and ascending colon. Other bowel segments appear normal. Trace pelvic free fluid. Uterus is absent. Urinary bladder and rectum are normal. Small lipoma of the right iliac is musculature. There are cholecystectomy clips. There is moderate diffuse nonspecific dilation of the common bile duct and intrahepatic bile ducts. The common bile duct measures about 11 mm. There are small bilateral renal cysts. These measure up to 1.5 cm. Otherwise abdominal organs are normal. There is severe vascular disease of the abdominal aorta and its pelvic branches. Mild diverticulosis of the sigmoid colon. There is a high-grade compression fracture of L1 with about 60% loss of height. There is vertebroplasty cement inside. No acute bony lesions. IMPRESSION: 1. Severe colitis of the transverse colon and splenic flexure. 2. Trace ascites. 3. Other chronic and nonspecific findings. This exam was performed using automated exposure control, adjustment of mA or kV according to patient size, and/or use of iterative reconstruction technique Electronically signed by Klever Kumar 12/12/2018 1:42 PM
[2018-12-12] MEDS ORDERED: CARDIZEM 125/NS 125 MG/125 ML IVPB IV SCH (13:52)
[2018-12-12] MEDS ORDERED: CARDIZEM IV ONE (13:52)
[2018-12-12] MEDS ORDERED: CARDIZEM CD PO ONE (14:25)
[2018-12-12] MEDS: VANCOMYCIN 1,200 MG in NS 250 ML IV SCH (14:56)
[2018-12-12] MEDS: FLAGYL 500 MG/NS 500 MG/100 ML IVPB IV SCH ×2 (15:02→21:35)
[2018-12-12] MEDS: LOPRESSOR PO SCH ×2 (15:03→20:05)
--- NOTE | 2018-12-12 15:08 | CARDIOLOGY CONSULTATION ---
DATE: 12/12/2018 REASON FOR CONSULTATION: Cardiology was consulted for atrial flutter/fibrillation with rapid ventricular rate. Currently the patient is in sinus rhythm. The patient was transferred to ICU. The patient is admitted with GI bleed. HISTORY OF PRESENT ILLNESS: This is a 72-year-old lady with history of COPD, pulmonary embolism in the past, history of atrial fibrillation, hypertension, hyperlipidemia, colon cancer, who presented to the emergency room with a 2-day history of throwing up blood. She also had noticed increasing weakness. She had elevated heart rate today with a rate of 160 beats per minute, suggestive of atrial flutter. The patient was subsequently transferred to CICU. Currently she is in sinus rhythm. Blood pressure is 120/80, heart rate is 109. Her medications were held this morning, as upper GI endoscopy was planned. This was canceled because of rapid ventricular rate atrial fibrillation. The patient also complains of left upper quadrant diffuse discomfort. Denies chest pain suggestive of angina. She also has had low grade fever associated with chills. PAST MEDICAL HISTORY: 1. Paroxysmal atrial fibrillation. 2. Severe COPD, on home oxygen. 3. Cholecystectomy. 4. Hysterectomy. 5. Hypertension. 6. Hyperlipidemia. 7. Colon cancer. 8. History of appendectomy. 9. Cataract surgery. 10.Back surgery. 11.Renal insufficiency. 12.Abnormal liver function tests. HOME MEDICATIONS: Eliquis 5 mg p.o. b.i.d., digoxin 250, Cardizem 180, Lexapro 20, Lasix 20, lovastatin 20, metoprolol 25 mg t.i.d., Protonix 40. SOCIAL HISTORY: She is a former smoker, quit a year ago. PHYSICAL EXAMINATION: Blood pressure is 120/80. First and second heart sounds were heard. There was no S3 gallop. Respiratory: Scattered wheeze noted. Abdomen: Soft. There was some epigastric tenderness. Bowel sounds heard. Central nervous system: Alert and oriented, was moving all 4 extremities. Examination of the extremities revealed no pedal edema. DIAGNOSTIC DATA: Sodium is 138, potassium 4.0, BUN is 61, creatinine 1.2. Two sets of cardiac enzymes were negative. Magnesium was 2.7. WBC is 16.25, hemoglobin when she came in was 11.1, hematocrit 36, platelet count of 301. The patient received 2 units of packed red cells. CT scan of the abdomen and pelvis revealed severe colitis of the transverse colon, splenic flexure. CT scan of her chest revealed bilateral infiltrates, severe COPD, mucus plugging, segmental bronchi. It had a dense multifocal nodular infiltrate in the right upper lobe. ASSESSMENT AND PLAN: Ms. Malia Parkinson is a 72-year-old lady with history of severe COPD, pulmonary embolism in the past, paroxysmal atrial fibrillation, hyperlipidemia, who came to the emergency room with a 2-day history of hematemesis. The patient has upper GI bleed, leukocytosis, severe COPD, with mucus plugging and pneumonia. She has history of hypertension. RECOMMENDATIONS: 1. Currently, she is in sinus rhythm. We will put her back on her Cardizem at an increased dose of 240 mg a day and continue with Lopressor 25 mg t.i.d. Her last recent echocardiogram revealed preserved left ventricular systolic function. 2. She has pneumonia with severe COPD and has been started on antibiotics. This could have triggered her atrial fibrillation as well. 3. She has had paroxysmal atrial fibrillation and has abnormal liver function tests in the past and renal insufficiency. I will avoid antiarrhythmic drugs at the present time given the abnormalities in the LFTs as well as kidney function. We will check LFTs again with a CMP in the morning. 4. GI bleed. Upper GI endoscopy is planned, which has been canceled today. Once her rhythm is under control, I would recommend proceeding with the endoscopy. Thank you for the consult. We will follow. cc: Matt Mayorga MD
--- NOTE | 2018-12-12 15:27 | PROGRESS NOTE ---
DATE: 12/12/2018 INTERVAL HISTORY: The patient still complains of significant abdominal pain. No further hematemesis. Initially planned for EGD with GI this morning. The patient experienced heart rate that went up into the 70s. The patient with history of atrial fibrillation but appeared to be regular at that time. EKG obtained which did not show atrial fibrillation at that time but had slightly wide QRS complex, slight ST depressions in lateral leads or inferolateral leads. Cardiology consulted and moved to . The patient then converted to atrial fibrillation with a rapid ventricular response. Planned on initiating diltiazem drip but prior to initiation, patient converted back to sinus rhythm. CT results as below. No other acute events. Patient remains without chest pain, dyspnea, or diaphoresis during these rhythm checks. REVIEW OF SYSTEMS: Twelve point review of systems negative except as per interval history. LABORATORY DATA: WBC 16.2, hemoglobin 13.3, hematocrit 39.9, platelets 232,000. Basic metabolic significant only for BUN 61, creatinine 1.2, glucose 110, troponin negative x2. Urinalysis unremarkable. IMAGING: CT chest with improvement in dense nodular infiltrates in the right upper lobe, but worsening of dense nodular infiltrates in bilateral lower lobes and then right middle lobe, severe COPD, some mucus plugging of segmental airways in the right lower lobe. Also some patchy hazy interstitial infiltrates bilaterally. CT abdomen and pelvis with severe colitis at the transverse colon and splenic flexure. Trace ascites. Multiple chronic findings. VITAL SIGNS: T-max 99.1 degrees, pulse 57 to 169, blood pressure 121/65, O2 saturation 97% on 3 L by nasal cannula. PHYSICAL EXAMINATION: General: No acute distress, but ill-appearing. Vital signs: As above. HEENT: Normocephalic, atraumatic. Moist mucous membranes. No cervical adenopathy. Cardiovascular: Tachycardic but regular at the time of my initial exam. No murmurs noted. Pulmonary: Mildly decreased breath sounds throughout. Scattered rales and rhonchi. No wheezing noted. Abdomen: Soft. Moderate, diffuse tenderness to palpation without andry rebound or guarding. Bowel sounds decreased but present. Extremities: Peripheral pulses intact. No clubbing, cyanosis. Neurologic: Cranial nerves grossly intact. No focal deficits identified. Psychiatric: Normal mood and affect. Awake, alert, oriented x3. Skin: No new rashes or lesions identified. ASSESSMENT AND PLAN: 1. Likely upper gastrointestinal bleed, hematemesis, possible acute blood loss anemia. The patient presented with complaints of abdominal pain and hematemesis. Was mildly anemic. Was transfused on arrival. Blood counts relatively stable and no further hematemesis, so definitely no need for further transfusion. Plan for EGD with GI once other issues are stable. 2. Likely pneumonia. Patient with admission 2 to 3 months ago with pneumonia and there was some question of nodule/mass on CT. At that time follow-up was recommended. Repeat CT here shows improvement in the right upper lobe infiltrates but significant worsening of bilateral lower lobes with nodular infiltrates. Favor pneumonia at this time but will definitely need follow- up CT in a few weeks and may end up needing Pulmonology evaluation. Changed antibiotics to vancomycin and cefepime given concern for new pneumonia with a relatively recent hospitalization. 3. Chronic hypoxic and hypercapnic respiratory failure. Patient on 2 L of oxygen at home, stable on approximately that here. ABG showing mildly elevated CO2 with normal pH so this is likely chronic as well. Continue nebulizers as needed but no sign of a COPD exacerbation at this time. 4. Colitis. Patient with nausea, vomiting, abdominal pain. CT obtained showing diffuse colitis. Flagyl added to above vancomycin and cefepime for coverage. If she does not improve rapidly, then we will likely consult Infectious Disease. Blood cultures obtained and no growth to date. 5. Cardiac arrhythmias. The patient with what appeared to be likely SVT earlier, then went into atrial fibrillation, now back in sinus rhythm. Cardiology consulted and adjusting medications. The patient moved to CICU. We will monitor her there for now. 6. Likely acute kidney injury. Patient with baseline creatinine 0.7 to 0.8; 1.2 here. Antibiotics as above. We are giving fluid resuscitation with saline at 80 mL an hour. Status normal saline bolus on arrival. 7. Hypertension. Holding home antihypertensives in the setting of gastrointestinal bleed labile heart rate. When able to take p.o., we will restart if his blood pressure is consistently elevated. 8. Hyperlipidemia. Restart statin once able to take p.o. 9. History of pulmonary thromboembolism. Holding blood thinners currently in the setting of likely upper gastrointestinal bleed. Once stable, will evaluate risks and benefits of restarting. 10. Tobacco abuse. Patient counseled on cessation. [facility]
--- NOTE | 2018-12-12 16:09 | EKG Report ---
Test Performed on : 12/12/2018 2:10:13 PM Test Reason : change in rate/rhythm Blood Pressure : / mmHG Vent. Rate : 109 BPM Atrial Rate : 109 BPM P-R Int : 142 ms QRS Dur : 072 ms QT Int : 312 ms P-R-T Axes : 060 021 054 degrees QTc Int : 420 ms Sinus tachycardia. Nonspecific ST and T wave abnormality Abnormal ECG When compared with ECG of 12-DEC-2018 11:13, (Unconfirmed) Sinus rhythm. has replaced Atrial flutter. Vent. rate has decreased BY [address] and T wave abnormality are present, but improved from previous. Confirmed by Demetrius Canchola MD ([id number]) on 12/12/2018 9:21:04 PM
--- NOTE | 2018-12-12 16:09 | EKG Report ---
Test Performed on : 12/12/2018 11:13:10 AM Test Reason : elevated heart rate Blood Pressure : / mmHG Vent. Rate : 167 BPM Atrial Rate : 166 BPM P-R Int : 000 ms QRS Dur : 154 ms QT Int : 290 ms P-R-T Axes : 000 009 269 degrees QTc Int : 483 ms Atrial flutter with 2 to 1 block Nonspecific intraventricular block Nonspecific ST and T wave abnormality Abnormal ECG When compared with ECG of 11-DEC-2018 20:31, (Unconfirmed) Atrial flutter. has replaced Sinus rhythm. Vent. rate has increased BY [address] and T wavae abnormalities are new. Confirmed by Demetrius Canchola MD ([id number]) on 12/12/2018 9:19:05 PM
[2018-12-12] MEDS: NEXIUM IV SCH (18:17)
[2018-12-13] MEDS: ATIVAN IV PRN (02:11)
[2018-12-13] MEDS: MORPHINE IV PRN ×3 (04:11→21:27)
[2018-12-13] MEDS: FLAGYL 500 MG/NS 500 MG/100 ML IVPB IV SCH ×4 (04:16→21:28)
[2018-12-13 06:08] LABS: AGAP 7; ALB/GLOB RATIO 0.9; ALBUMIN 2.6 g/dL (3.5-5.0); ALKALINE PHOSPHATASE 124 U/L (32-104); BUN 33 mg/dL (8-22); CALCIUM 8.3 mg/dL (8.8-10.2); CHLORIDE 105 mmol/L (98-107); COSMO 292; CREATININE 0.8 mg/dL (0.5-0.9); ESTIMATED GFR > 60; GLUCOSE 99 mg/dL (70-104); GOT 15 U/L (10-30); GPT 15 U/L (10-36); SODIUM 143 mmol/L (136-145); TCO2 31 mmol/L (25-35); TOTAL BILIRUBIN 0.36 mg/dL (0.20-1.00); TOTAL PROTEIN 5.6 g/dL (6.3-8.3)
[2018-12-13] MEDS: NEXIUM IV SCH ×2 (06:18→18:10)
--- NOTE | 2018-12-13 07:11 | Diag Imaging Result Doc PS360 ---
EXAM: CHEST-PORTABLE 12/13/2018 HISTORY: dyspnea TECHNIQUE: AP portable upright at 0537 COMMENT: There is increased interstitial and some alveolar opacity present particularly in the lung bases and particularly on the left. The latter finding has worsened considerably since 12/11/2018. IMPRESSION: Pulmonary edema with worsening opacification of the left lower lobe, the possibility of pneumonia cannot be excluded. Electronically signed by Brian Mas 12/13/2018 7:09 AM
[2018-12-13 08:08] LABS: BASO# 0.03 X1000 (0.0-0.2); BASO% 0.2 % (0.0-0.8); EOS# 0.12 X1000 (0.0-0.7); EOS% 0.7 % (0.0-10.0); HEMATOCRIT 37.8 % (37.0-47.0); HEMOGLOBIN 11.9 g/dL (12.0-16.0); IMM GRAN# 0.06 X1000 (0.0-0.04); IMM GRAN% 0.4 % (0.0-0.5); LYMPH% 8.7 % (20.5-51.1); MCH 27.5 PG (27-31); MCHC 31.5 g/dL (33-37); MCV 87.5 FL (81-99); MONO# 1.55 X1000 (0.11-0.59); MONO% 9.6 % (1.7-9.3); NEUT# 12.98 X1000 (1.4-6.5); NEUT% 80.4 % (42.2-75.2); PLT 173 X1000 (130-400); RBC 4.32 XMIL (4.2-5.4); RDW 16.2 % (11.5-14.5); WBC 16.14 X1000 (4.8-10.8)
[2018-12-13] MEDS: MAXIPIME 2 GM in NS 100 ML IV SCH (09:04)
[2018-12-13] MEDS: CARDIZEM CD PO SCH (09:05)
[2018-12-13] MEDS: LOPRESSOR PO SCH ×4 (09:05→20:31)
[2018-12-13] MEDS: VANCOMYCIN 1,200 MG in NS 250 ML IV SCH (12:45)
--- NOTE | 2018-12-13 14:44 | PROGRESS NOTE ---
DATE: 12/13/2018 INTERVAL HISTORY: Patient with no further hematemesis. Dyspnea improving. Abdominal pain still present but improving. Has been in and out of atrial fibrillation but has remained rate controlled. No new complaints. No acute events overnight. REVIEW OF SYSTEMS: Twelve point review of systems negative except as per interval history. LABS: WBC 16.1, hemoglobin 11.9, hematocrit 37.8, platelets 173,000. Sodium 143, potassium 4, BUN 33, creatinine 0.8. Glucose 99. LFTs unremarkable. Troponin negative x3. Urinalysis unremarkable. VITALS: T-max 98.9 degrees, pulse 72, respirations 18, blood pressure 123/51, O2 saturation 96% on 3 L by nasal cannula. PHYSICAL EXAMINATION: General: No acute distress, ill appearing. Vitals: Vitals as above. HEENT: Normocephalic, atraumatic. Moist mucous membranes. No cervical adenopathy. Cardiovascular: Regular rate and rhythm at the time my exam, no murmurs noted. Pulmonary: Scattered rales and rhonchi, improved from previous. No wheezing. Good air entry. Abdomen: Soft. Mild diffuse tenderness, significantly improved from previous. Bowel sounds positive. Extremities: Peripheral pulses intact. No clubbing, cyanosis. Neurologic: Cranial nerves grossly intact. No focal deficits identified. Psychiatric: Normal mood and affect. Awake, alert, oriented x3. Skin: No new rashes or lesions identified. ASSESSMENT AND PLAN: 1. Likely upper gastrointestinal bleed, hematemesis, possible acute blood loss anemia. Patient presented with complaints of abdominal pain, hematemesis, mildly anemic, transfused on arrival. Some slight decrease in blood counts since then, but no need for further transfusion at this point. Possible EGD once other issues stabilize. 2. Likely pneumonia. Patient with admission 2-3 months ago with pneumonia and some question of nodule/mass on CT. Repeat CT here shows improvement in right upper lobe infiltrates but worsening of bilateral lower lobe nodular infiltrates. Favor pneumonia at this time but will need further follow-up CT in a few weeks. Changed antibiotics to vancomycin and cefepime yesterday given concern for pneumonia with relatively recent hospitalization. 3. Colitis. Patient with nausea, vomiting, and abdominal pain. CT showing diffuse colitis. Flagyl added to vancomycin and cefepime as above. Does appear to be improving on that. Blood cultures obtained and no growth to date. 4. Atrial fibrillation with rapid ventricular response. The patient with what appeared to be supraventricular tachycardia at one point yesterday but then went into atrial fibrillation. Now back in sinus rhythm. Cardiology on board and adjusting medications. Continue to monitor closely. 5. Likely acute kidney injury. Patient with normal baseline creatinine. Creatinine up to 1.2 on admission. With fluids and treatment of underlying conditions, improved to 0.8 today which is essentially her baseline. 6. Chronic hypoxic and hypercapnic respiratory failure, chronic obstructive pulmonary disease. The patient on 2 L of oxygen at home. Stable on about that here. ABG showing mildly elevated CO2 which is likely also chronic. Continue nebulizers. 7. Hypertension. Holding home antihypertensives in the setting of gastrointestinal bleed. Blood pressure has been essentially normal thus far. We will continue Lopressor and diltiazem for her atrial fibrillation but hold home Lasix. 8. Hyperlipidemia. Will restart statin once taking p.o. reliably. 9. History of pulmonary embolism. Holding blood thinners in setting of likely upper gastrointestinal bleed. Once stable, we will reassess. 10. Tobacco abuse. Patient has been counseled on cessation.
--- NOTE | 2018-12-13 23:22 | PROVIDER PROGRESS NOTE ---
Progress Note S: Patient transferred to [facility] after developed afib/flutter with RVR yesterday. No acute overnight events. No further hematemesis. NPO. She continues to have abdominal pain, but much improved. CT A/P yesterday showed severe colitis. No diarrhea. O: Last Vital Signs Temp 98.1 F 12/13/18 20:00 Pulse 66 12/13/18 20:00 Resp 17 12/13/18 20:00 BP 110/57 12/13/18 20:00 Pulse Ox 98 12/13/18 20:00 Height 5 ft 8 in Weight 119 lb GEN: awake, NAD HEENT: anicteric, MMM NECK: supple, no jvd PULM: CTAB CV: RRR, no murmurs ABD: ND, hypoactive BS, mild TTP LLQ, no rebound or guarding EXT: no cce NEURO: nonfocal 12/13/18 12/13/18 05:32 05:32 WBC 16.14 H Hgb 11.9 L Plt Count 173 Sodium 143 Potassium 4.0 Chloride 105 Carbon Dioxide 31 Anion Gap 7 BUN 33 H Creatinine 0.8 Total Bilirubin 0.36 AST 15 ALT 15 Alkaline Phosphatase 124 H Total Protein 5.6 L Albumin 2.[address] ABD/PELVIS W/IV CONT ONLY - 12/12/2018 INDICATION: LLQ pain r/o diverticulitis, GI pathology COMPARISON: None FINDINGS: There is significant wall thickening and surrounding inflammation of the transverse colon, splenic flexure, and ascending colon. Other bowel segments appear normal. Trace pelvic free fluid. Uterus is absent. Urinary bladder and rectum are normal. Small lipoma of the right iliac is musculature. There are cholecystectomy clips. There is moderate diffuse nonspecific dilation of the common bile duct and intrahepatic bile ducts. The common bile duct measures about 11 mm. There are small bilateral renal cysts. These measure up to 1.5 cm. Otherwise abdominal organs are normal. There is severe vascular disease of the abdominal aorta and its pelvic branches. Mild diverticulosis of the sigmoid colon. There is a high-grade compression fracture of L1 with about 60% loss of height. There is vertebroplasty cement inside. No acute bony lesions. IMPRESSION: 1. Severe colitis of the transverse colon and splenic flexure. 2. Trace ascites. 3. Other chronic and nonspecific findings. ASSESSMENT/PLANS: Ms Malia Parkinson is a 72-year-old woman with COPD, pulmonary embolism, atrial fibrillation, history of colon cancer status post chemotherapy, who presents with several days of left lower quadrant pain and hematemesis found to have pancolitis. Course complicated with Afib/flutter with RVR. No further hematemesis. Hgb stable. Started on abx today. I suspect his colitis is likely ischemic in etiology from either low flow state or thromboembolic. Lactate WNL. VSS. Ordered LDH, CRP for AM. She is NPO. Plan for diagnostic EGD tomorrow # Hematemesis: continue PPI IV BID; NPO for diagnostic EGD tomorrow with Dr. Horton # Pancolitis: suspect ischemic; improved; f/u LDH, CRP in AM; cont supportive care; if develops diarrhea send stool for infectious etiologies including cdiff; on empiric abx # Afib/flutter: holding Eliquis; rate controlled; cardiology following # History of CRC: noted # Leukocytosis: on abx; trending CBC; BCx2 NGTD Will follow with you.
[2018-12-14] MEDS: DILAUDID IV PRN ×4 (00:10→21:25)
[2018-12-14] MEDS: ATIVAN IV PRN ×2 (00:20→12:34)
[2018-12-14] MEDS: FLAGYL 500 MG/NS 500 MG/100 ML IVPB IV SCH ×4 (03:34→21:25)
[2018-12-14 05:45] LABS: BASO# 0.04 X1000 (0.0-0.2); BASO% 0.3 % (0.0-0.8); EOS# 0.18 X1000 (0.0-0.7); EOS% 1.2 % (0.0-10.0); HEMATOCRIT 42.1 % (37.0-47.0); HEMOGLOBIN 12.5 g/dL (12.0-16.0); IMM GRAN# 0.23 X1000 (0.0-0.04); IMM GRAN% 1.5 % (0.0-0.5); LYMPH# 1.26 X1000 (1.2-3.4); LYMPH% 8.3 % (20.5-51.1); MCH 26.9 PG (27-31); MCHC 29.7 g/dL (33-37); MCV 90.5 FL (81-99); MONO# 1.64 X1000 (0.11-0.59); MONO% 10.7 % (1.7-9.3); MPV 11.3 FL (7.4-10.4); NEUT# 11.91 X1000 (1.4-6.5); PLT 194 X1000 (130-400); RBC 4.65 XMIL (4.2-5.4); RDW 16.4 % (11.5-14.5); WBC 15.26 X1000 (4.8-10.8)
[2018-12-14 06:14] LABS: AGAP 6; BUN 20 mg/dL (8-22); CALCIUM 8.4 mg/dL (8.8-10.2); CHLORIDE 103 mmol/L (98-107); COSMO 284; CREATININE 0.7 mg/dL (0.5-0.9); ESTIMATED GFR > 60; GLUCOSE 106 mg/dL (70-104); POTASSIUM 4.3 mmol/L (3.5-5.1); SODIUM 141 mmol/L (136-145); TCO2 32 mmol/L (25-35)
[2018-12-14] MEDS: NEXIUM IV SCH ×3 (06:14→18:03)
[2018-12-14 06:49] LABS: C REACTIVE PROT QUANT 95.08 mg/L (0.00-5.00); LDH 159 U/L (135-214)
[2018-12-14] MEDS: DUONEB (A & A) INH PRN ×2 (07:42→15:08)
[2018-12-14] MEDS: MAXIPIME 2 GM in NS 100 ML IV SCH (08:33)
[2018-12-14 09:20] LABS: INR 1.12; PROTIME 15.3 Seconds (11.0-16.0)
[2018-12-14] MEDS: LOPRESSOR PO SCH ×4 (09:31→21:24)
[2018-12-14] MEDS: CARDIZEM CD PO SCH (09:34)
[2018-12-14] MEDS ORDERED: GOLYTELY PO ONE (12:00)
[2018-12-14] MEDS: VANCOMYCIN 1,200 MG in NS 250 ML IV SCH (14:25)
--- NOTE | 2018-12-14 14:39 | PROGRESS NOTE ---
DATE: 12/14/2018 INTERVAL HISTORY: The patient with no further hematemesis. Atrial fibrillation controlled. Oxygen requirement stable. Currently n.p.o. for endoscopy for further evaluation. No new complaints. No acute events overnight. REVIEW OF SYSTEMS: Twelve point review of systems negative except as per interval history. LABORATORY: WBC 15.2, hemoglobin 12.5, hematocrit 42.1, and platelets 194,000. INR 1.1. Sodium 141, potassium 4.3, BUN 20, creatinine 0.7 glucose 106, CRP 95, and LDH 159. PHYSICAL EXAMINATION: General: No acute distress. Vitals: As above. HEENT: Normocephalic, atraumatic. Moist mucous membranes. Cardiovascular: Irregular rhythm but normal rate. No murmurs noted. Pulmonary: Largely clear to auscultation at this point. No wheezing and good air entry. Abdomen: Soft. Mild diffuse tenderness almost resolved. Bowel sounds positive. Extremities: Peripheral pulses intact. No clubbing or cyanosis. Neurologic: Cranial nerves grossly intact. No focal deficits identified. Psychiatric: Normal mood and affect. Awake, alert and oriented x3. Skin: No new rashes or lesions identified. ASSESSMENT AND PLAN: 1. Likely upper GI bleed, hematemesis, possible acute blood loss anemia. Patient presented with complaints of abdominal pain and hematemesis. Patient was mildly anemic and transfused on arrival. Blood counts actually increasing spontaneously today. Likely EGD today. 2. Likely pneumonia. Patient with admission 2 to 3 months ago with pneumonia. Some question of nodule or mass on CT. Repeat CT here shows improvement in right upper lobe infiltrate, but worsening bilateral lower lobe nodule infiltrates. Favor pneumonia, but will need further followup CT in a few weeks. The patient is on antibiotics with vancomycin and cefepime, which we will continue for now. 3. Colitis, possibly ischemic. Patient with nausea, vomiting, and abdominal pain on admission. CT showing diffuse colitis. Flagyl added to vancomycin and cefepime as above. The abdominal symptoms are significantly improving. Gastroenterology on board following with likely endoscopy today. Blood cultures no growth to date. 4. Atrial fibrillation with rapid ventricular response. Patient with what appeared to be SVT at one point just after admission, but then went atrial fibrillation with rapid ventricular response. Since then, has been in and out of atrial fibrillation in sinus rhythm. Cardiology on board and adjusting medications. Monitor. 5. Acute kidney injury resolved with fluids and of infection. 6. Chronic hypoxic and hypercapnic respiratory failure, chronic obstructive pulmonary disease. Patient on 2 L oxygen at home. Stable on 2 to 3 L of oxygen here. No signs of exacerbation at this time. 7. Hypertension. Holding home anti hypertensives in the setting of GI bleed initially. Blood pressure has been low normal to mildly low here so no plans to restart home medications right now. 8. Hyperlipidemia. Will restart statin once taking p.o. reliably. 9. History of PE. Holding blood thinner in the setting of likely upper GI bleed. 10. Tobacco abuse. Patient has been counseled on cessation.
[2018-12-14] MEDS: ZOFRAN IV PRN ×2 (17:31→21:26)
[2018-12-15] MEDS: DILAUDID IV PRN ×4 (00:18→20:46)
[2018-12-15] MEDS ORDERED: CALMOSEPTINE OINTMENT TOP PRN (01:54)
[2018-12-15] MEDS: FLAGYL 500 MG/NS 500 MG/100 ML IVPB IV SCH ×4 (03:49→22:39)
[2018-12-15 05:26] LABS: BASO# 0.02 X1000 (0.0-0.2); BASO% 0.2 % (0.0-0.8); EOS# 0.22 X1000 (0.0-0.7); EOS% 1.9 % (0.0-10.0); HEMATOCRIT 38.3 % (37.0-47.0); HEMOGLOBIN 11.9 g/dL (12.0-16.0); IMM GRAN# 0.13 X1000 (0.0-0.04); IMM GRAN% 1.1 % (0.0-0.5); LYMPH# 1.48 X1000 (1.2-3.4); LYMPH% 12.9 % (20.5-51.1); MCH 27.3 PG (27-31); MCHC 31.1 g/dL (33-37); MCV 87.8 FL (81-99); MONO% 13.1 % (1.7-9.3); MPV 10.9 FL (7.4-10.4); NEUT# 8.11 X1000 (1.4-6.5); NEUT% 70.8 % (42.2-75.2); PLT 194 X1000 (130-400); RBC 4.36 XMIL (4.2-5.4); RDW 15.7 % (11.5-14.5); WBC 11.46 X1000 (4.8-10.8)
[2018-12-15] MEDS: SODIUM CHLORIDE 0.9% INJ SCH (05:39)
[2018-12-15] MEDS: NEXIUM IV SCH ×4 (05:39→18:03)
[2018-12-15 06:23] LABS: AGAP 11; BUN 8 mg/dL (8-22); CALCIUM 8.2 mg/dL (8.8-10.2); CHLORIDE 103 mmol/L (98-107); COSMO 281; CREATININE 0.5 mg/dL (0.5-0.9); ESTIMATED GFR > 60; GLUCOSE 93 mg/dL (70-104); MAGNESIUM 1.5 mg/dL (1.5-2.7); POTASSIUM 3.3 mmol/L (3.5-5.1); SODIUM 142 mmol/L (136-145); TCO2 28 mmol/L (25-35)
[2018-12-15] MEDS: CARDIZEM CD PO SCH (08:55)
[2018-12-15] MEDS: MAXIPIME 2 GM in NS 100 ML IV SCH (08:55)
[2018-12-15] MEDS: LOPRESSOR PO SCH ×3 (08:55→20:46)
--- NOTE | 2018-12-15 10:21 | PROGRESS NOTE ---
DATE: 12/15/2018 INTERVAL HISTORY: She was saturating 95% on 3 L nasal cannula. She does have improvement in her leukocytosis. She is denying any chest pain or shortness of breath. She continues to complain of left lower quadrant abdominal pain. She denies any nausea or vomiting. OBJECTIVE: Vital Signs: Temperature 98.8 degrees, pulse 93, respiratory rate 22, blood pressure 150/70, saturating 94% on 3 L nasal cannula. General: Appears cachectic, not in any acute distress. HEENT: Oral cavity is moist. Lungs: She does have bilateral infrascapular crackles, without any wheeze or rhonchi. Cardiovascular: S1, S2 normal. Regular. No murmur, rub, or gallop. Abdomen: Soft. Significantly tenderness in the left lower quadrant. Hypoactive bowel sounds. Extremities: No lower extremity edema. Does not have any pallor, cyanosis, clubbing, or icterus. LABORATORY DATA: Suggestive of improving WBC. Normal hemoglobin. Normal platelet count. Hypokalemia and hypomagnesemia, which are currently being repleted. IMAGING: No new imaging today. ASSESSMENT AND PLAN: 1. Upper gastrointestinal bleed leading to hematemesis and acute blood loss anemia, status post 2 units of packed red blood cells. Esophagogastroduodenoscopy was performed yesterday. The detailed report is pending. I will continue her on ondansetron as needed. Appreciate Gastroenterology recommendation. I am also continuing her on esomeprazole, and will change it to oral after esophagogastroduodenoscopy report tomorrow. 2. Acute transverse colitis involving splenic flexure. Differential includes ischemic colitis considering her hypotension on presentation versus infectious. Continue intravenous vancomycin, cefepime, and metronidazole. Day 1 of antibiotics is 12/12/2018. Followup colonoscopy today. 3. Acute hypoxic respiratory failure on chronic hypoxic respiratory failure with bilateral pneumonia with baseline history of chronic obstructive pulmonary disease with occasional hemoptysis. Follow up sputum culture results. Continue intravenous antibiotics. She would need outpatient Pulmonology followup. 4. Paroxysmal atrial fibrillation with rapid ventricular rate. Cardiology on board. Continue current diltiazem and metoprolol. Her Eliquis has been held for paroxysmal atrial fibrillation, as well as previous history of pulmonary embolism in 12/2017, considering her recent hematemesis episodes. 5. Others. Continue albuterol/ipratropium nebulization for history of chronic obstructive pulmonary disease, and intravenous lorazepam as needed for anxiety. 6. Disposition. I will continue to monitor the patient inside the hospital as we await colonoscopy. Plan of care discussed with her. All of her questions have been answered. cc: Konstantin Russo MD MTDD
[2018-12-15] MEDS ORDERED: XYLOCAINE-MPF 2% ONE (10:34)
[2018-12-15] MEDS ORDERED: ROBINUL ONE (10:34)
[2018-12-15] MEDS ORDERED: DIPRIVAN 1% ONE ×2 (10:34)
[2018-12-15] MEDS ORDERED: FENTANYL ONE (10:35)
[2018-12-15] MEDS ORDERED: ZOFRAN ONE (10:36)
--- NOTE | 2018-12-15 11:57 | ENDOSCOPY OPERATIVE NOTE ---
[facility] ENDOSCOPY OPERATIVE NOTE , PATIENT: Malia Parkinson ADM DATE: 12/15/2018 MR #: [id number] : 1945 COLONOSCOPY PROCEDURE REPORT PROCEDURE DATE: 12/15/2018 SURGEON: Medardo Childs MD STATUS: inpatient SAMPLE PATTERNMAKER: PREOPERATIVE DIAGNOSIS: The patient is a 72 yr old female here for a colonoscopy due to abdominal pa in in the lower left quadrant and colitis. PROCEDURE PERFORMED: Colonoscopy with biopsy MEDICATIONS: Per Anesthesia PREP TYPE: GoLytely
[2018-12-15] MEDS: MAGNESIUM SULFATE 2 GM/S.W.I. 2 GM/50 ML IVPB IV SCH ×2 (12:48→13:54)
[2018-12-15] MEDS: POTASSIUM CHLORIDE 20 MEQ/SWI 20 MEQ/100 ML IVPB IV SCH ×2 (12:48→15:11)
[2018-12-15] MEDS ORDERED: NS 500 ML ONE (12:49)
[2018-12-15] MEDS: ATIVAN IV PRN ×2 (15:04→22:38)
[2018-12-15] MEDS: VANCOMYCIN 1,200 MG in NS 250 ML IV SCH (15:11)
--- NOTE | 2018-12-15 20:05 | GENERAL SURGERY CONSULTATION ---
DATE: 12/15/2018 HISTORY OF PRESENT ILLNESS: Ms Parkinson is a 72-year-old lady with severe COPD who has multiple medical problems. She came in because of hematemesis. She also reports a 10-day history of left lower quadrant pain that occurred suddenly. PAST MEDICAL HISTORY: Besides the COPD, is pertinent for pulmonary embolism and atrial fibrillation, hypertension, hyperlipidemia, colon cancer. PAST SURGICAL HISTORY: Her previous surgeries includes an appendectomy, cholecystectomy, left wrist surgery, hysterectomy, back surgery and cataract surgery. MEDICATIONS AT HOME INCLUDE: Xanax 1 mg p.o. b.i.d., Eliquis 5 mg b.i.d., digoxin 250 mcg daily, diltiazem CD 180 mg daily, Lexapro 20 mg daily, Lasix 40 mg daily, lovastatin 20 mg daily, metoprolol 25 mg t.i.d., Percocet b.i.d. and pantoprazole 40 mg daily. SOCIAL HISTORY: She is a former smoker. Denies any alcohol or drug use. FAMILY HISTORY: Pertinent for coronary disease. REVIEW OF SYSTEMS: As noted above. PHYSICAL EXAMINATION: Vital Signs: She is afebrile. Heart rate 72, blood pressure 128/61. Neck: There is no cervical adenopathy. Lungs: Bilateral breath sounds. Heart: Irregular rate and rhythm. Abdomen: Soft. She is tender in the left lower quadrant. Bowel sounds are hypoactive. Extremities: Femoral pulses are present. Dorsalis pedis pulses are normal bilaterally. LABORATORY DATA: White count is 11,500, down from 18,000. Hemoglobin 11.9, BUN 8, creatinine 0.5. IMAGING: CT scan shows a transverse colitis and splenic flexure colitis. Endoscopy report shows severe colitis 60 to 70 cm from the anus. Proximal colonic and distal colonic mucosa appeared normal. ASSESSMENT: This lady apparently has some watershed ischemic colitis at the transition between the flow from her SMA and her MARKIE. She does not have bypassable disease as all 3 of her mesenteric vessels appear patent at the orifice. PLAN: The plan will be to follow along as she may ultimately require colonic resection if she does not improve. Hopefully, though, she will continued to gradually improve with non-operative therapy. cc: Prosper Chu MD
[2018-12-15] MEDS ORDERED: MYLICON PO PRN (22:06)
[2018-12-16] MEDS: DILAUDID IV PRN ×4 (00:01→14:47)
[2018-12-16] MEDS: FLAGYL 500 MG/NS 500 MG/100 ML IVPB IV SCH ×4 (03:47→21:19)
[2018-12-16] MEDS: ZOFRAN IV PRN ×2 (04:42→19:37)
[2018-12-16] MEDS: DUONEB (A & A) INH PRN ×2 (04:56→13:36)
[2018-12-16 05:48] LABS: BASO# 0.02 X1000 (0.0-0.2); BASO% 0.2 % (0.0-0.8); EOS# 0.23 X1000 (0.0-0.7); EOS% 2.4 % (0.0-10.0); HEMATOCRIT 39.7 % (37.0-47.0); HEMOGLOBIN 12.4 g/dL (12.0-16.0); IMM GRAN% 1.1 % (0.0-0.5); LYMPH# 1.41 X1000 (1.2-3.4); MCH 27.1 PG (27-31); MCHC 31.2 g/dL (33-37); MCV 86.7 FL (81-99); MONO# 1.29 X1000 (0.11-0.59); MONO% 13.7 % (1.7-9.3); MPV 11.6 FL (7.4-10.4); NEUT# 6.34 X1000 (1.4-6.5); NEUT% 67.6 % (42.2-75.2); PLT 230 X1000 (130-400); RBC 4.58 XMIL (4.2-5.4); RDW 15.6 % (11.5-14.5); WBC 9.39 X1000 (4.8-10.8)
[2018-12-16 06:06] LABS: AGAP 8; BUN 4 mg/dL (8-22); CALCIUM 8.1 mg/dL (8.8-10.2); CHLORIDE 100 mmol/L (98-107); COSMO 274; CREATININE 0.5 mg/dL (0.5-0.9); ESTIMATED GFR > 60; GLUCOSE 124 mg/dL (70-104); SODIUM 138 mmol/L (136-145); TCO2 30 mmol/L (25-35)
[2018-12-16] MEDS: NEXIUM IV SCH (06:12)
[2018-12-16] MEDS: SODIUM CHLORIDE 0.9% INJ SCH (06:12)
[2018-12-16] MEDS: KLOR-CON PO SCH ×2 (07:58→13:03)
[2018-12-16] MEDS: POTASSIUM CHLORIDE 20 MEQ/SWI 20 MEQ/100 ML IVPB IV SCH ×2 (07:59→17:53)
[2018-12-16] MEDS: LOPRESSOR PO SCH ×3 (07:59→21:19)
[2018-12-16] MEDS: MAXIPIME 2 GM in NS 100 ML IV SCH (07:59)
[2018-12-16] MEDS: CARDIZEM CD PO SCH (07:59)
[2018-12-16] MEDS ORDERED: PRILOSEC PO ONE (08:17)
[2018-12-16] MEDS ORDERED: TYLENOL PO PRN (08:31)
--- NOTE | 2018-12-16 08:48 | PROGRESS NOTE ---
DATE: 12/16/2018 INTERVAL HISTORY: No acute events overnight. She underwent colonoscopy yesterday which had detected ulcerative mucosa probably in the region of transverse colon. Vascular Surgery was consulted. However, looking at the CT scan, vascular surgery had recommended that right now she does not have any significant stenosis so I had recommended medical management. VITAL SIGNS: Temperature 98.1 degrees, pulse 82, respiratory rate 18, blood pressure 134/57, and saturating 97% on 3 L nasal cannula. SUBJECTIVE: She is sleeping. She is upset that she is not getting medicines to help her go to sleep. I discussed with her about the addictive and dependence potential of benzodiazepines. Subjectively, she denies any complaints except the lower abdominal pain which is persistent. OBJECTIVE: Vitals: Temperature 98.1 degrees, pulse 82, respiratory rate 18, and blood pressure 134/57. She is saturating 97% on 3 L nasal cannula. General: She appears anxious not in any acute distress. HEENT: Oral cavity is moist. Lungs: Bilateral infrascapular crackles without any wheeze or rhonchi more prominent on the right side. Cardiovascular: S1, S2 normal. Regular. No murmur, rub, or gallop. Abdomen: Soft. Tenderness in the left quadrant. Hypoactive bowel sounds. No lower extremity edema. No pallor, cyanosis, clubbing, or icterus. LABORATORY: Labs are suggestive of resolution of leukocytosis. Normal hemoglobin. Normal platelet count. Hypokalemia which is being repleted normal kidney function. No new blood cultures have been negative. No new imaging. ASSESSMENT AND PLAN: 1. Upper gastrointestinal bleed leading to hematemesis and acute blood loss anemia status post 2 units of packed red blood cells. EGD report is pending. Continue ondansetron as needed. Proton pump inhibitors oral b.i.d. 2. Acute transverse colitis involving the splenic flexure in watershed area between superior and inferior mesenteric artery. Vascular Surgery was consulted who suggested she does not have bypassable disease as the mesenteric vessels appear to be patent at the orifices and recommended medical management, which we will continue with intravenous antibiotics and liquid diet. Day 1 of antibiotics is 12/12. 3. Acute hypoxic respiratory failure on COPD with bilateral pneumonia with multiple nodular alveolar opacity. She does not have any more hemoptysis. Sputum culture has not been collected. Continue intravenous antibiotic. She would need outpatient pulmonology follow-up for further workup for granulomatous disease or cryptogenic pneumonia in future. 4. Paroxysmal atrial fibrillation with rapid ventricular rate. Continue current diltiazem and metoprolol. Her Eliquis has been held. She did have history of PE in December of 2017. 5. Continue albuterol, ipratropium nebulization for history of COPD; intravenous lorazepam as needed for anxiety; pain medication for abdominal pain, the regimen of which will change as we plan transitioning from IV to oral. 6. Disposition: I will continue to monitor patient in [facility]. Plan of care discussed with her. All her questions have been answered. cc: Konstantin Russo MD
[2018-12-16] MEDS: ULTRAM PO PRN ×2 (10:29→17:53)
[2018-12-16] MEDS: VANCOMYCIN 1,000 MG in NS 250 ML IV SCH (15:40)
--- NOTE | 2018-12-16 20:14 | GENERAL SURGERY PROGRESS NOTE ---
DATE: 12/16/2018 Ms. Parkinson says she feels better today. She is less tender. Her white count is down to 9400. Recommendations are to continue conservative therapy. I would advance her diet if she can tolerate it. cc: Prosper Chu MD
[2018-12-16] MEDS: XANAX PO PRN (21:19)
[2018-12-16] MEDS: MELATONIN PO SCH (21:19)
[2018-12-16] MEDS: PRILOSEC PO SCH (21:19)
--- NOTE | 2018-12-16 23:45 | PROVIDER PROGRESS NOTE ---
Progress Note S: Patient tolerating clears. No N/V or SOB. She continues to have LLQ pain. No diarrhea or rectal bleeding. O: Last Vital Signs Temp 97.9 F 12/17/18 00:00 Pulse 77 12/17/18 00:00 Resp 23 12/17/18 00:00 BP 146/72 12/17/18 00:00 Pulse Ox 95 12/17/18 00:00 Height 5 ft 8 in Weight 116 lb 9 oz EN: awake, NAD HEENT: anicteric, MMM NECK: supple, no jvd PULM: CTAB CV: RRR, no murmurs ABD: ND, hypoactive BS, mild TTP LLQ, no rebound or guarding EXT: no cce NEURO: nonfocal LABS: 12/15/18 12/15/18 12/16/18 04:55 04:55 05:05 WBC 11.46 H Hgb 11.9 L Plt Count 194 Sodium 142 138 Potassium 3.3 L D 3.0 L Chloride 103 100 Carbon Dioxide 28 30 BUN 8 D 4 L Creatinine 0.5 0.5 Glucose 124 H 12/16/18 05:05 WBC 9.39 Hgb 12.4 Plt Count 230 Sodium Potassium Chloride Carbon Dioxide BUN Creatinine Glucose Prelim path acutely inflammed stroma with debris and necrosis. final path pending Colonoscopy 12/15 COLON FINDINGS: There was severe colitis noted located 60-70 cm from the point of entry, likely within the transverse colon likely from ischemic injury. Colits was notable for severe ulceration with exudates. Multiple biopsies were performed using cold forceps. The promixmal colon and distal colonic mucosa was normal. There was mild non-bleeding diverticulosis noted in the sigmoid colon. CT ABD/PELVIS W/IV CONT ONLY - 12/12/2018 INDICATION: LLQ pain r/o diverticulitis, GI pathology COMPARISON: None FINDINGS: There is significant wall thickening and surrounding inflammation of the transverse colon, splenic flexure, and ascending colon. Other bowel segments appear normal. Trace pelvic free fluid. Uterus is absent. Urinary bladder and rectum are normal. Small lipoma of the right iliac is musculature. There are cholecystectomy clips. There is moderate diffuse nonspecific dilation of the common bile duct and intrahepatic bile ducts. The common bile duct measures about 11 mm. There are small bilateral renal cysts. These measure up to 1.5 cm. Otherwise abdominal organs are normal. There is severe vascular disease of the abdominal aorta and its pelvic branches. Mild diverticulosis of the sigmoid colon. There is a high-grade compression fracture of L1 with about 60% loss of height. There is vertebroplasty cement inside. No acute bony lesions. IMPRESSION: 1. Severe colitis of the transverse colon and splenic flexure. 2. Trace ascites. 3. Other chronic and nonspecific findings. ASSESSMENT/PLANS: Ms Malia Parkinson is a 72-year-old woman with COPD, pulmonary embolism, atrial fibrillation, history of colon cancer status post chemotherapy, who presents with several days of left lower quadrant pain and hematemesis found to have pancolitis. Colonoscopy revealed severe colitis in the transverse colon consistent with ischemic colitis. I suspect her ischemic colitis is likely from low flow state or thromboembolic. Vascular consulted and recommend non-surgical management and supportive care. She is tolerating clears. Continue analgesics, antibiotics, replete lytes. Avoid hypotension. Leukocytosis improving. Will follow with you.
[2018-12-17] MEDS: FLAGYL 500 MG/NS 500 MG/100 ML IVPB IV SCH ×4 (03:54→22:02)
[2018-12-17] MEDS: PRILOSEC PO SCH ×2 (06:24→22:02)
[2018-12-17] MEDS: CARDIZEM CD PO SCH (08:33)
[2018-12-17] MEDS: LOPRESSOR PO SCH (08:33)
[2018-12-17] MEDS: MAXIPIME 2 GM in NS 100 ML IV SCH (08:33)
[2018-12-17] MEDS: DILAUDID IV PRN ×3 (08:34→21:46)
[2018-12-17] MEDS: DUONEB (A & A) INH PRN ×3 (08:40→15:48)
[2018-12-17] MEDS: ZOFRAN IV PRN ×3 (08:49→22:03)
[2018-12-17] MEDS ORDERED: LOPRESSOR PO ONE (08:54)
[2018-12-17] MEDS ORDERED: KLOR-CON PO ONE (08:55)
--- NOTE | 2018-12-17 10:11 | PROGRESS NOTE ---
DATE: 12/17/2018 INTERVAL HISTORY: She has had black-looking bowel movement and watery. She is upset that she is in a lot of abdominal pain subjectively. I explained to her about the nature of her ulcer, natural history of progression, and explained to her that it is a fine balance between avoiding constipation, giving pain medications, and allowing time for ulcers to heal to avoid any surgery, and she understood it. I again re-emphasized about outpatient pulmonology followup. OBJECTIVE: Current Vital Signs: Temperature 98.8 degrees, pulse 72, respiratory rate 16, blood pressure 128/60, saturating 99% on 3 L nasal cannula. General: Does not appear in any acute distress. She is anxious. HEENT: Oral cavity is moist. Lungs: She has decreased breath sounds bilaterally. She also has inspiratory crackles bilaterally in the infrascapular region, more pronounced on the right. No rhonchi. Cardiovascular: S1, S2 normal. Appears regular. No murmur, rub, or gallop. Abdomen: Soft. No tenderness, except only mild tenderness to left lower quadrant. Active bowel sounds. No lower extremity edema. IMAGING AND LABORATORY DATA: Labs suggestive of resolution of leukocytosis. Normal hemoglobin. Normal platelet count. In fact, there is no CBC or BMP today. I am repeating potassium. No positive microbiological data. No new imaging. ASSESSMENT AND PLAN: 1. Upper gastrointestinal bleed leading to hematemesis and acute blood loss anemia, status post 2 units of packed red blood cells. Continue ondansetron as needed and proton pump inhibitors twice daily. 2. Acute pancolitis with predominantly transverse colitis involving splenic fracture with colonic ulcers in watershed area of superior and inferior mesenteric artery, likely ischemic in etiology due to low flow state. Vascular Surgery has currently recommended medical management, to which she is responding. I will continue intravenous antibiotics and current diet, and will avoid hypotension as well as constipation. Day 1 is 12/12/2018. 3. Acute hypoxic respiratory failure with bilateral pneumonia with multiple nodular alveolar opacities and history of chronic obstructive pulmonary disease. Sputum has not been collected. Continue intravenous antibiotics. Albuterol/ipratropium nebulization as needed, and outpatient Pulmonology followup. 4. Paroxysmal atrial fibrillation with rapid ventricular rate. Continue diltiazem and metoprolol. Her Eliquis has been held considering hematemesis as well as melena, which she was taking for primary cerebrovascular accident prophylaxis as well as history of deep venous thrombosis and pulmonary embolism in 12/2017. 5. Others. Continue alprazolam as needed for anxiety, acetaminophen and intravenous hydromorphone as needed for abdominal pain, with tramadol. 6. Disposition. I will continue to monitor the patient in [facility], and will consider transfer to medical floor. Plan of care discussed with her. All questions have been answered. cc: Konstantin Russo MD
[2018-12-17] MEDS ORDERED: NORCO-5 PO ONE (12:12)
[2018-12-17] MEDS: VANCOMYCIN 1,000 MG in NS 250 ML IV SCH (12:14)
[2018-12-17] MEDS: ULTRAM PO PRN (17:15)
--- NOTE | 2018-12-17 17:56 | GASTROENTEROLOGY PROGRESS NOTE ---
DATE: 12/17/2018 ATTENDING PHYSICIAN: Dr. Russo PRIMARY DOCTOR: Tuan Cates MD SUBJECTIVE: Patient resting in bed. She denies any nausea/vomiting. She denies any fevers, rigors, chills. She denies any blood in the stools, having liquid brown stools. PHYSICAL EXAMINATION: Vitals: Temperature 98.8 degrees, pulse rate 74, respiratory rate 16, blood pressure 128/60, saturating 98% on 3 L nasal cannula. Body weight: 116 pounds 9 ounces, BMI of 17.7 kg/m2. General appearance: Patient is thinly built, lying in bed, in no acute distress. HEENT: No pallor. No icterus. Pupils equal, reactive to light and accommodation. Neck: Supple. Abdomen: Soft, nontender, nondistended. No guarding, no rebound. Extremities: No cyanosis, clubbing. Neurological: She is alert, awake, oriented x3. DIAGNOSTIC STUDIES: Her only lab for today is potassium 3.7. Blood culture x2 negative after 48 hours. IMPRESSION AND PLAN: 1. Severe colitis of the transverse colon, and splenic flexure. Suspect ischemic colitis. Surgery is on board. She will continue on IV antibiotics. We will continue to follow closely. 2. Chronic obstructive pulmonary disease. Aware. 3. Pulmonary embolism. Aware. 4. Atrial fibrillation. Aware. 5. History of colon cancer status post chemotherapy. Aware. 6. Recent history of left lower quadrant pain. On colonoscopy, she was noted to have severe colitis about 60 to 70 cm from the point of entry, likely within the transverse colon, splenic flexure area. Multiple biopsies were obtained at that place. She also had mild nonbleeding diverticulosis in the sigmoid colon. We will follow up the biopsy report. 7. Hematemesis, resolved. EGD was negative. We will continue IV pain control and IV antibiotics, and we will continue on oral PPIs for GI prophylaxis. She is on full liquid diet. We reviewed Dr. Chu's consultation and his recommendations to continue conservative therapy and continue to advance the diet as tolerated. The above plans were discussed with the patient and all questions were answered. Please call us with any further questions. cc: MD Tuan Chopra MD [facility] C. Walker, MD Siddharth Patel, MD [facility]OSPITALStephen
[2018-12-17] MEDS: MELATONIN PO SCH (22:03)
[2018-12-17] MEDS: XANAX PO PRN (22:32)
[2018-12-18] MEDS: DUONEB (A & A) INH PRN ×2 (01:43→18:28)
[2018-12-18] MEDS: ZOFRAN IV PRN ×4 (02:42→20:55)
[2018-12-18] MEDS: ULTRAM PO PRN ×3 (02:42→18:15)
[2018-12-18] MEDS: FLAGYL 500 MG/NS 500 MG/100 ML IVPB IV SCH (04:38)
[2018-12-18] MEDS: VANCOMYCIN 1,000 MG in NS 250 ML IV SCH (04:38)
[2018-12-18 05:34] LABS: BASO# 0.01 X1000 (0.0-0.2); BASO% 0.1 % (0.0-0.8); EOS# 0.19 X1000 (0.0-0.7); EOS% 2.2 % (0.0-10.0); HEMATOCRIT 34.6 % (37.0-47.0); HEMOGLOBIN 10.7 g/dL (12.0-16.0); IMM GRAN# 0.05 X1000 (0.0-0.04); IMM GRAN% 0.6 % (0.0-0.5); LYMPH% 17.5 % (20.5-51.1); MCHC 30.9 g/dL (33-37); MCV 87.2 FL (81-99); MONO# 0.79 X1000 (0.11-0.59); MONO% 9.2 % (1.7-9.3); MPV 10.6 FL (7.4-10.4); NEUT# 6.04 X1000 (1.4-6.5); NEUT% 70.4 % (42.2-75.2); PLT 230 X1000 (130-400); RBC 3.97 XMIL (4.2-5.4); RDW 15.8 % (11.5-14.5); WBC 8.58 X1000 (4.8-10.8)
[2018-12-18 05:50] LABS: AGAP 7; BUN 3 mg/dL (8-22); CALCIUM 7.7 mg/dL (8.8-10.2); CHLORIDE 107 mmol/L (98-107); COSMO 278; CREATININE 0.4 mg/dL (0.5-0.9); ESTIMATED GFR > 60; GLUCOSE 94 mg/dL (70-104); MAGNESIUM 1.3 mg/dL (1.5-2.7); PHOSPHORUS 1.5 mg/dL (2.7-4.5); POTASSIUM 3.9 mmol/L (3.5-5.1); SODIUM 141 mmol/L (136-145); TCO2 27 mmol/L (25-35)
[2018-12-18] MEDS: PRILOSEC PO SCH ×3 (06:06→22:00)
[2018-12-18] MEDS: CARDIZEM CD PO SCH (08:43)
[2018-12-18] MEDS: LEVAQUIN PO SCH (08:43)
[2018-12-18] MEDS: LOPRESSOR PO SCH (08:43)
[2018-12-18] MEDS: DILAUDID IV PRN ×3 (08:43→20:54)
[2018-12-18] MEDS: FLAGYL PO SCH ×3 (08:44→20:48)
[2018-12-18] MEDS: MAGNESIUM SULFATE 2 GM/S.W.I. 2 GM/50 ML IVPB IV SCH ×2 (08:50→11:42)
--- NOTE | 2018-12-18 09:28 | PROGRESS NOTE ---
DATE: 12/18/2018 INTERVAL HISTORY: She did have episodes of hypotension overnight. In the morning time, however, it has resolved. She denies any chest pain or shortness of breath or cough. Her abdominal pain is now tolerable. She wants to continue taking a liquid diet. SUBJECTIVE: No other complaints. We discussed about changing her IV antibiotics to oral and transitioning her to routine medical floor. I answered all of her questions. VITALS: Currently temperature 97.7 degrees, pulse 101, respiratory 27, blood pressure 147/59, saturating 100% 2 L nasal cannula. PHYSICAL EXAMINATION: General: Does not appear in any acute distress oral cavity is moist. She does have crackles right infrascapular and bilateral infrascapular region no wheeze or rhonchi S1, S2 normal. Tachycardic. Appears irregular on monitor. No murmur, rub, or gallop. Abdomen: Soft, nontender. No lower extremity edema. LABS: Suggestive of normocytic anemia, normal platelet count. She does have a normal electrolytes except hypomagnesemia and hypophosphatemia which is currently being repleted. MICROBIOLOGY: No positive data. IMAGING: No new imaging. ASSESSMENT AND PLAN: 1. Gastrointestinal bleeding leading to hematemesis and acute blood loss anemia status post two packed red blood cells transfusion which has now resolved. Continue ondansetron as needed and proton pump inhibitors twice daily. 2. Acute torres colitis with predominantly transverse colitis and splenic flexure involvement with colonic ulcer, likely in the setting of ischemic colitis. Vascular surgery recommended medical management, which she is responding to. I will change antibiotics to levofloxacin and Flagyl to complete a total of 10 days, day 1 is December 12. 3. Acute hypoxic respiratory failure with bilateral pneumonia and multiple nodular alveolar opacities with history of chronic obstructive pulmonary disease. Continue oral antibiotics which she has responded to. 4. Paroxysmal atrial fibrillation with rapid ventricular rate. I will decrease diltiazem dose considering her hypotensive episode tonight and continue current dose of metoprolol. She is no longer on Eliquis considering her recent gastrointestinal bleed episode which she was taking for previous history of DVT PE. I will consider starting her on aspirin at the time of discharge. 5. Others: Continue alprazolam as needed for anxiety, acetaminophen, intravenous hydromorphone and tramadol for abdominal pain. DISPOSITION: Transition her to medical floor. I discussed with the nursing team about activity, out of bed as tolerated. cc: Konstantin Russo MD
[2018-12-18] MEDS ORDERED: MAGNESIUM SULFATE 2 GM/S.W.I. 2 GM/50 ML IVPB IV ONE (18:00)
[2018-12-18] MEDS: XANAX PO PRN (20:47)
[2018-12-18] MEDS: MELATONIN PO SCH (20:48)
--- NOTE | 2018-12-18 22:30 | PROVIDER PROGRESS NOTE ---
Progress Note S: No acute overnight events. Patient reports significant improvement in abdominal pain. She is tolerating full liquids. No N/V. +BMs without blood. Afebrile. O: Last Vital Signs Temp 98.5 F 12/18/18 19:53 Pulse 80 12/18/18 19:53 Resp 20 12/18/18 19:53 BP 145/62 12/18/18 19:53 Pulse Ox 94 L 12/18/18 19:53 Height 5 ft 8 in Weight 116 lb 9 oz RA GEN: awake, NAD HEENT: anicteric, MMM NECK: supple, no jvd PULM: CTAB CV: RRR, no murmurs ABD: ND, BS present, mild TTP LLQ, no rebound or guarding EXT: no cce NEURO: nonfocal LABS: 12/18/18 12/18/18 05:01 05:01 WBC 8.58 Hgb 10.7 L Plt Count 230 Sodium 141 Potassium 3.9 Chloride 107 Carbon Dioxide 27 BUN 3 L Creatinine 0.4 L Prelim path acutely inflammed stroma with debris and necrosis. final path pending Colonoscopy 12/15 COLON FINDINGS: There was severe colitis noted located 60-70 cm from the point of entry, likely within the transverse colon likely from ischemic injury. Colits was notable for severe ulceration with exudates. Multiple biopsies were performed using cold forceps. The promixmal colon and distal colonic mucosa was normal. There was mild non-bleeding diverticulosis noted in the sigmoid colon. CT ABD/PELVIS W/IV CONT ONLY - 12/12/2018 INDICATION: LLQ pain r/o diverticulitis, GI pathology COMPARISON: None FINDINGS: There is significant wall thickening and surrounding inflammation of the transverse colon, splenic flexure, and ascending colon. Other bowel segments appear normal. Trace pelvic free fluid. Uterus is absent. Urinary bladder and rectum are normal. Small lipoma of the right iliac is musculature. There are cholecystectomy clips. There is moderate diffuse nonspecific dilation of the common bile duct and intrahepatic bile ducts. The common bile duct measures about 11 mm. There are small bilateral renal cysts. These measure up to 1.5 cm. Otherwise abdominal organs are normal. There is severe vascular disease of the abdominal aorta and its pelvic branches. Mild diverticulosis of the sigmoid colon. There is a high-grade compression fracture of L1 with about 60% loss of height. There is vertebroplasty cement inside. No acute bony lesions. IMPRESSION: 1. Severe colitis of the transverse colon and splenic flexure. 2. Trace ascites. 3. Other chronic and nonspecific findings. ASSESSMENT/PLANS: Ms Malia Parkinson is a 72-year-old woman with COPD, pulmonary embolism, atrial fibrillation, history of colon cancer status post chemotherapy, who presented LLQ pain and hematemesis s/p EGD and colonoscopy found to have severe colitis in transverse colon with prelim biopsies consistent with ischemic colitis. She has improved significantly with antibiotics and supportive treatment. # Ischemic colitis: improving - transitioned to oral abx today; continue to complete a 14 days course - advance diet to GI soft as tolerated - avoid hypotension or constipating meds; allow for permissive hypertension - will need repeat colonoscopy to confirm healing in 3 months - surgery following, apprec recs # Anemia: from above # Leukocytosis: resolved # Afib with RVR: rate-controlled Will follow with you. Please call with questions.
[2018-12-19] MEDS: ZOFRAN IV PRN ×3 (04:16→11:55)
[2018-12-19] MEDS: DILAUDID IV PRN ×2 (04:16→11:49)
[2018-12-19] MEDS: FLAGYL PO SCH ×2 (04:17→12:01)
[2018-12-19] MEDS: PRILOSEC PO SCH (06:30)
[2018-12-19] MEDS: XANAX PO PRN (07:39)
[2018-12-19] MEDS: ULTRAM PO PRN (07:40)
[2018-12-19] MEDS: DUONEB (A & A) INH PRN ×2 (08:13→11:32)
[2018-12-19] MEDS: LEVAQUIN PO SCH (08:41)
[2018-12-19] MEDS: K-PHOS PO SCH ×3 (08:41→12:01)
[2018-12-19] MEDS: LOPRESSOR PO SCH (08:41)
[2018-12-19] MEDS: CARDIZEM CD PO SCH (08:41)
[2018-12-19 11:46] VITALS: BP 114/87
--- NOTE | 2018-12-19 20:35 | DISCHARGE SUMMARY ---
ADMISSION DATE: 12/11/2018 DISCHARGE DATE: 12/19/2018 DISCHARGE DISPOSITION: Home with home oxygen which is her baseline. DISCHARGE CONDITION: Hemodynamically stable, alert and oriented x3. Tolerating full liquid diet without any nausea, vomiting, abdominal pain is well controlled. Has not had any bloody bowel movements. DISCHARGE DIAGNOSIS: 1. Gastrointestinal bleed. 2. Acute blood loss anemia requiring 2 units of blood transfusion. 3. Atrial fibrillation with rapid ventricular rate. 4. Acute on chronic hypoxic respiratory failure due to bilateral pneumonia. 5. Acute ischemic colitis with intestinal ulcers. OTHER DIAGNOSES: 1. History of chronic obstructive pulmonary disease. 2. History of chronic hypoxic respiratory failure on home 2 to 3 L nasal cannula oxygen. 3. History of deep vein thrombosis, pulmonary embolism in December 2017 on Eliquis which was held . 4. Essential hypertension. 5. Hyperlipidemia. 6. History of colon cancer in remission. DISCHARGE MEDICATIONS: Alprazolam 1 mg b.i.d., atorvastatin 20 mg daily, ipratropium albuterol inhaler 1 puff inhaled b.i.d., escitalopram 20 mg daily, magnesium oxide 400 mg b.i.d., Symbicort 80/4.5 mcg inhaler 1 puff inhaled b.i.d., metronidazole 500 mg every 8 hours for 8 days, levofloxacin 500 mg daily for 8 days, furosemide 40 mg daily, diltiazem 180 mg daily, metoprolol tartrate 50 mg daily, pantoprazole 40 mg b.i.d. for 60 tablets, acetaminophen 650 mg every 6 hours as needed for abdominal pain less than 7 on 10, tramadol 50 mg every 6 hours as needed for abdominal pain more than 7 on 10 25 tablets have been prescribed. CONSULTATIONS AND PROCEDURES: Gastroenterology Dr. Childs for gastrointestinal bleed, general Surgery Dr. Chu for ischemic colitis. PROCEDURES: 1. Upper endoscopy which she underwent on 12/14/2018 . 2. Colonoscopy on 12/15/2018 which had detected severe colitis about 60 cm from the point of entry likely within the transverse colon region from ischemic injury. There was severe ulceration with exudates. The biopsies were taken. The prelim report suggested fragments of acutely inflamed stroma and diabetes with necrosis final diagnosis is pending. VITALS: At the time of discharge temperature 98.1 degrees, pulse 77, respiratory 16, blood pressure 114/87, saturating 98% on 3 L nasal cannula. PHYSICAL EXAMINATION: General: Does not appear in acute distress oral cavity is moist. Air entry bilateral equal no wheeze, rhonchi, crackles. Cardiovascular: S1, S2 normal. No murmur, rub, or gallop. Abdomen: Soft, nontender. No lower extremity edema. She is alert, oriented x3. LABS: At the time of discharge WBC 8000, hemoglobin 10.7, platelet 230,000, BUN 3, creatinine 0.4, her magnesium is 1.3 and she has received 4 g of magnesium after that. She will be discharged on oral magnesium. Significant microbiology. Blood culture did not have any growth. Significant imaging. Chest CT on admission had mixed bilateral lung infiltrate which were unusual. There was severe COPD. There were some mucous plugging mild of segmental bronchi. Abdomen pelvis CT on December 12 had detected severe colitis of transverse colon and splenic flexure. There was also trace ascites. HOSPITAL COURSE SUMMARY: Ms. Parkinson is 72 years old lady with past medical history of chronic obstructive pulmonary disease on home oxygen, pulmonary embolism, paroxysmal atrial fibrillation, colon cancer requiring chemotherapy, who came in on 12/11/2018 with chief complaints of hematemesis. She stated there was some food material in it and it was blood tinged. In the emergency room she was hemodynamically stable however considering her hematemesis episode she was admitted for further management. During hospital admission she also complained of excruciating left abdominal pain for which CAT scan abdomen, pelvis was performed which had suggested severe transverse colitis especially involving splenic flexure. For her shortness of breath and cough CT scan of chest was performed which suggested bilateral pneumonia. Patient was started on intravenous fluids, 2 units of blood transfusion, intravenous antibiotics and admitted to [facility] for further management. Endoscopy was performed. The final report is not up yet. However patient did not have any more hematemesis episodes and she will be discharged on oral Protonix and her hemoglobin was stable. She had also underwent colonoscopy for CT scan abdomen pelvis findings of transverse colitis which had detected ischemic ulcers in the splenic flexure and transverse colon region so General Surgery was consulted to see if she would be candidate of bypass however there was no significant blockage of intraabdominal arteries and medical management including avoiding hypotension was recommended so patient was kept on intravenous antibiotics and hypotension was avoided following which she did not have any bloody bowel movements and her abdominal pain was getting better. With intravenous antibiotics her shortness of breath and cough also got better. During the hospitalization she developed atrial fibrillation with rapid ventricular rate and her medications were adjusted to avoid hypotension as well as control the heart rate. Her anticoagulation including Eliquis were held and she was advised to follow up with her heart doctor and GI doctor before resuming any kind of antiplatelet or anticoagulant medications. At the time of discharge patient was hemodynamically stable . DISCHARGE INSTRUCTION: 1. Follow up with Dr. Mayorga, Dr. Childs and discuss about adding aspirin or any other antiplatelet or anticoagulation as tolerated. Discussed about final colon biopsy results as well as need for repeat colonoscopy in 3 months to document healing of the ulcers. 2. Follow up with Dr. Amato [facility], discussed about recurrent pneumonia. All of her questions were answered. More than 30 minutes were spent discharging this patient. cc: Konstantin Russo MD
--- NOTE | 2018-12-28 09:17 | ENDOSCOPY OPERATIVE NOTE ---
[facility] ENDOSCOPY OPERATIVE NOTE , PATIENT: Malia Parkinson ADMISSION DATE: MR#: [id number] : 1945 EGD PROCEDURE REPORT PROCEDURE DATE: 12/14/2018 SURGEON: Eduard Horton MD STATUS: inpatient [employer] TE[employer]ER: Evangelina Colbert PREOPERATIVE DIAGNOSIS: The patient is a 72 yr old female here for an EGD due to hematemesis. PROCEDURE PERFORMED: EGD, diagnostic MEDICATIONS: Per Anesthesia TOPICAL ANESTHETIC: none CONSENT: The patient understands the risks and benefits of the procedure and understands that these r isks include, but are not limited to: sedation, allergic reaction, infection, perforation and/or bleeding. Alternative means of evaluation and treatment include, among others: physical exam, x-rays, and/or surgical intervention. The patient elects to proceed with this endoscopic procedure. HISORY AND PHYSICAL: 12/14/2018 function. Hand hygiene and appropriate measures for infection prevention was taken. After the risks, benefits and alternatives of the procedure were thoroughly explained, Informed consent was verified, confirmed and timeout was successfully executed by the treatment team. The patient was anesthetized with topical anesthesia and the [id number] ([id number]) endoscope was introduced through the mouth and advanced to the second portion of the duoden um. Retroflexion was performed in the stomach and revealed a hiatal hernia. The gastroscope was then slowly withdrawn and removed. ESOPHAGUS: The z-line was noted at 40cm from the incisors. The z-line appeared normal. A 3 cm hia emmett hernia was noted. STOMACH: Mild gastritis (inflammation) was found in the gastric antrum. DUODENUM: The duodenal mucosa showed no abnormalities in the duodenal bulb, 1st part duodenum, and 2n d part duodenum. SPECIMENS REMOVED: No ADVERSE EVENTS: There were no complications. POSTOPERATIVE DIAGNOSIS: 1. The z-line was noted at 40cm from the incisors 2. 3 cm hiatal hernia 3. Gastritis (inflammation) was found in the gastric antrum 4. The duodenal mucosa showed no abnormalities in the duodenal bulb, 1st part duodenum, and 2nd part duodenum RECOMMENDATIONS: REPEAT EXAM: Eduard Horton MD eSigned: Eduard Horton MD 12/14/2018 10:42 AM cc: PATIENT NAME: Mlaia Parkinson MR#: [id number]
== END 2018-12-19 15:20 | disposition home health service (06) | DRG 377 ==
LOC: SUPCPDRO → ED 18:02 → SUATTDRO 21:35 → 4N 21:35 → 3S 12-12 14:03 → 4N 12-18 11:06
PROVIDERS: ATTEND Internal Medicine